=== PATIENT | female | born 1940 | race Caucasian/White ===

== ENCOUNTER → 2020-04-21 13:08 | Outpatient (BNVA) | payer MEDICARE, OTHER, SELFPAY | PROVIDERS: Visit Provider Nurse Practitioner | DX: M25.561 Pain in right knee (principal); E03.9 Hypothyroidism, unspecified; I10 Essential (primary) hypertension; M10.9 Gout, unspecified | CPT/HCPCS: 73562; 80053; 80061; 84443; 84550; 85025; 85651 ==

== ENCOUNTER → 2020-04-28 10:52 | Outpatient (BNVA) | payer MEDICARE, OTHER, SELFPAY | PROVIDERS: Visit Provider Nurse Practitioner | DX: Z12.11 Encounter for screening for malignant neoplasm of colon (principal); Z98.84 Bariatric surgery status | CPT/HCPCS: 82270 ==

== ENCOUNTER → 2020-05-07 14:42 | Outpatient (BNVA) | payer MEDICARE, OTHER, SELFPAY | PROVIDERS: Visit Provider Nurse Practitioner | DX: I10 Essential (primary) hypertension (principal); E55.9 Vitamin D deficiency, unspecified; D64.9 Anemia, unspecified | CPT/HCPCS: 82306; 82607; 83540; 83735 ==

== ENCOUNTER → 2020-08-11 11:07 | Outpatient (BNVA) | payer MEDICARE, OTHER, SELFPAY | PROVIDERS: Visit Provider Nurse Practitioner | DX: E03.9 Hypothyroidism, unspecified (principal); I10 Essential (primary) hypertension; R73.9 Hyperglycemia, unspecified; Z20.828 Contact with and (suspected) exposure to other viral communicable diseases | CPT/HCPCS: 83036; 84443; 87635 ==

== ENCOUNTER → 2020-08-22 08:28 | Outpatient (BNVA) | payer MEDICARE, OTHER, SELFPAY | PROVIDERS: Visit Provider Nurse Practitioner | DX: Z11.59 Encounter for screening for other viral diseases (principal) | CPT/HCPCS: 87635 ==

== ENCOUNTER 2020-09-17 22:18 | Emergency (ER) | payer MEDICARE, OTHER, SELFPAY ==
[2020-09-17 22:23] VITALS: BP 195/95; PULSE 103; RESP 18; TEMP 36.9; O2SAT 100; BMI 25.7
--- NOTE | 2020-09-17 22:41 | W.ED.GENADLT ---
HPI - General Adult General: Chief complaint: General Medical Stated complaint: roof of mouth hurts/ face/ head pain Time Seen by Provider: 09/17/20 22:24 History of Present Illness: HPI narrative: Complain about sinus pain after having a couple Covid swab test done. Says she was treated for sinus problems for about 3 weeks ago and since then she has had 2 Covid swabs done and now she has pain in her left side of her face and roof of her mouth. Denies fever chills nausea or vomiting. MD complaint: Sinus pain Onset (ago): day(s) (2) Location: face Radiation: other (Roof of mouth) Severity: moderate Severity scale (1-10): 4 Quality: aching Pain Consistency: constant Relieving factors: none Exacerbating factors: none Associated symptoms: Reports no associated symptoms; Deny chest pain, dyspnea, headache(s), nausea, rash or vomiting Review of Systems Const: Denies: fever(s), chills or body aches Eyes: Denies: change in vision or blurry vision ENMT: Reports: nasal congestion and other (Sinus pain left side more than right times couple days since she has had Covid swabs done.); Denies: throat pain Card: Denies: chest pain or dyspnea on exertion Resp: Denies: dyspnea, productive cough or non-productive cough GI: Denies: abdominal pain, nausea or vomiting Musc: Denies: extremity pain Skin/Breast: Denies: rash Neuro: Denies: headache(s) Psych: Denies: anxiety or depression Fabian/Lymph: Denies: easy bruising PFSH ED PFSH: Medical History (Updated 09/17/20 @ 22:41 by JULIANNE Diaz) Acquired hypothyroidism Essential hypertension Gout, unspecified Hepatic cirrhosis Migraine Surgical History History of carotid endarterectomy History of carpal tunnel release History of cataract extraction History of gastric bypass Hx of section 3 times Hx of cholecystectomy Family History Other Cancer Diabetes Hypertension Social History Smoking and tobacco status: former smoker Second hand smoke exposure: No Smoking risk assessment/counseling performed?: No Alcohol intake: never Desire information about alcohol rehabilitation?: No Counseling given: No Desire information about substance/drug rehabilitation?: No Counseling given: No Adopted: No Caregiver/support person: No Lives independently: Yes Household members: spouse Housing: House Marital status: Number of children: 3 Current occupational status: retired History of recent travel: No Current gender identity: Female Physical Exam Const: COMMON NORMALS: no acute distress, average body habitus and patient oriented x3 HENMT: COMMON NORMALS: normocephalic HEAD & SCALP: normal to inspection and normocephalic FACE & SINUS: sinus tenderness maxillary (Left side roof of mouth looks okay) Eye: COMMON NORMALS: conjunctivae normal GENERAL EYE: appearance normal, both eyes and all related structures CONJUNCTIVA: Yes conjunctivae normal Neck/C-Spine: COMMON NORMALS: no JVD Chest: COMMONS NORMALS: normal inspection of the chest Resp: COMMON NORMALS: normal respiratory effort and clear to auscultation bilaterally AUSCULTATION: clear to auscultation bilaterally Cardio: COMMON NORMALS: no JVD and regular rhythm RATE: tachycardic RHYTHM: regular rhythm GI: COMMON NORMALS: Normal to inspection, nondistended, normoactive bowel sounds present Extremity: COMMON NORMALS: normal to inspection and full ROM Neuro: COMMON NORMALS: patient oriented x3 Course Vital Signs: Vital signs: Vital Signs Temperature 98.4 F 09/17/20 22:23 Pulse Rate 86 09/17/20 23:09 Respiratory Rate 20 H 09/17/20 23:09 Blood Pressure 195/95 09/17/20 23:09 Pulse Oximetry 98 09/17/20 23:09 Discharge Plan Discharge Patient Disposition: Home Clinical Impression: Sinusitis, acute Qualifiers: Sinusitis location: maxillary Recurrence: non-recurrent Qualified Code(s): J01.00 - Acute maxillary sinusitis, unspecified Condition: Stable Prescriptions: New Bactrim DS 800-160 mg tablet 1 tab PO BID 14 Days Qty: 28 RF: 0 tramadol 50 mg tablet 50 mg PO Q6H PRN (Reason: pain) Qty: 14 RF: 0 No Action aspirin [Adult Low Dose Aspirin] 81 mg tablet,delayed release (DR/EC) 81 mg PO DAILY RF: 0 Prolia 60 mg/mL syringe SUBCUT .6 months RF: 0 grape seed caps PO RF: 0 ascorbate calcium (vitamin C) 1,000 mg PO DAILY RF: 0 isosorbide mononitrate 30 mg tablet extended release 24 hr 30 mg PO DAILY Qty: 30 RF: 2 metoprolol tartrate 50 mg tablet 50 mg PO BID 30 Days Qty: 60 RF: 2 lisinopril 40 mg tablet 40 mg PO DAILY Qty: 30 RF: 2 meloxicam [Mobic] 15 mg tablet 15 mg PO DAILY Qty: 30 RF: 2 azithromycin [Zithromax] 250 mg tablet See Rx Instructions PO .COMPLEX Qty: 6 RF: 0 levothyroxine 125 mcg tablet 125 mcg PO DAILY Qty: 30 RF: 2 nitroglycerin 0.4 mg tablet, sublingual 0.4 mg SUBLINGUAL Q5M PRN (Reason: chest pain) Qty: 25 RF: 0 Discharge Orders: Discharge Order (Routine); Ordered 09/17/20 Ordered By: Jose Means Referrals: [facility] [Primary Care Provider] - Discharge Diet: Usual diet Discharge Activity: Increase activity as tolerated Patient Instructions: Sinusitis (ED) Activity Restrictions/Additional Instructions: Follow-up with medical provider as directed. Take medications as prescribed. Return to the ER or your medical provider if condition worsens. Please read and understand discharge instructions. If any questions ask please. Discharge Date/Time: 09/17/20 23:40 Coding Level of Care Code ED Bone Char Operator for Yadira Fwd Exam Comprehensive
[2020-09-17] MEDS: TRAMadol 50 mg Tablet PO (22:45)
[2020-09-17] MEDS: sulfamethoxazole-trimeth DS 160-800 mg Tablet 1 TAB PO (22:45)
[2020-09-17 23:09] VITALS: BP 195/95; PULSE 86; RESP 20; O2SAT 98
--- NOTE | 2020-09-17 23:37 | PC.NURSE ---
This RN agrees with tick inspector assessment
== END 2020-09-17 23:40 | disposition home or self-care (01) ==
PROVIDERS: Emergency Provider Nurse Practitioner Family
DX: J01.00 Acute maxillary sinusitis, unspecified (principal); Z79.82 Long term (current) use of aspirin; I10 Essential (primary) hypertension; Z87.891 Personal history of nicotine dependence
CPT/HCPCS: 12345; 99281; 99283

== ENCOUNTER → 2020-10-06 15:19 | Outpatient (BNVA) | payer MEDICARE, OTHER, SELFPAY | PROVIDERS: PCP Nurse Practitioner; Visit Provider Nurse Practitioner | DX: E03.9 Hypothyroidism, unspecified (principal); I10 Essential (primary) hypertension; K12.1 Other forms of stomatitis | CPT/HCPCS: 82607; 84443; 85025 ==

== ENCOUNTER → 2021-01-14 11:28 | Outpatient (BNVA) | payer MEDICARE, OTHER, SELFPAY | PROVIDERS: PCP Nurse Practitioner; Visit Provider Nurse Practitioner | DX: E03.9 Hypothyroidism, unspecified (principal) | CPT/HCPCS: 84443 ==

== ENCOUNTER 2021-02-03 09:06 | Outpatient (CLI) | payer MEDICARE, OTHER, SELFPAY ==
--- NOTE | 2021-02-03 09:30 | US_ITS ---
WS: [id number] ABDOMINAL ULTRASOUND LIMITED REASON FOR VISIT: K74.60 - Unspecified cirrhosis of liver TECHNIQUE: Grayscale and Doppler ultrasound examination of the abdomen. FINDINGS: Pancreas: Visualized pancreas is unremarkable. Abdominal aorta and IVC: Normal Liver: Liver measures 15.3 cm in length. The liver has an extremely heterogeneous echotexture predomi nantly moderately hyperechoic. There is a simple cyst in the anterior liver. There is a small, 2 cm x 2 cm, focal hypoechoic region in the liver immediately anterior to the inferior vena cava at the inf erior margin of the liver. This lesion is indeterminate. Gallbladder: Surgically removed. Right kidney: Right kidney measures 8.9 cm x 4.9 cm x 5.0 cm. No mass, hydronephrosis, or calculus is identified. The kidney has a very irregular contour with thinning of the cortex. No free fluid. US/US liver [id number] IMPRESSION: Indeterminate lesion in the liver as described above. The patient's history put s her at risk for development of hepatoma. This would have to be a consideratio n. Most sensitive and accurate examination is an MRI with liver mass protocol. Small abnormal right kidney. Correlate with GFR.
== END 2021-02-03 09:07 | disposition home or self-care (01) ==
LOC: US 09:08
PROVIDERS: PCP Nurse Practitioner; Visit Provider Nurse Practitioner
DX: K74.60 Unspecified cirrhosis of liver (principal); K76.9 Liver disease, unspecified
CPT/HCPCS: 76705

== ENCOUNTER 2021-02-16 15:42 | Outpatient (CLI) | payer MEDICARE, OTHER, SELFPAY ==
--- NOTE | 2021-02-16 16:45 | MR_ITS ---
WS: [id number] MRI ABDOMEN without CONTRAST. COMPARISON: Liver ultrasound 02/03/2021 Multiplanar, multisequence imaging is performed without contrast. Simple cyst in the medial LEFT lobe of the liver measuring 13 x 12 mm. No additional cysts. Surface o f the liver is slightly irregular consistent with a history of cirrhosis. No additional lesions are i dentified on this unenhanced study. Subtle lesions without IV contrast may be obscured. Mild coarsene d signal within the liver. No bile duct dilatation. Portal vein is patent. No portal vein thrombosis. Spleen is not enlarged. Minimal amount of ascites adjacent to the spleen. Pancreas and common bile d uct and pancreatic duct are normal. Adrenal glands normal. Kidneys are low normal size. MR/MR abdomen wo con [id number] IMPRESSION: 1. Simple appearing cyst medial segment LEFT lobe of the liver. 2. No additional masses are identified but study is limited without IV contras t which decreases the sensitivity. 3. Mild cirrhosis. 4. Small amount of ascites adjacent to the spleen.
== END 2021-02-16 15:43 | disposition home or self-care (01) ==
PROVIDERS: PCP Nurse Practitioner; Visit Provider Nurse Practitioner
DX: K76.9 Liver disease, unspecified (principal); R18.8 Other ascites; K74.60 Unspecified cirrhosis of liver; K76.89 Other specified diseases of liver
CPT/HCPCS: 74181

== ENCOUNTER → 2021-02-19 15:12 | Outpatient (BNVA) | payer MEDICARE, OTHER, SELFPAY | PROVIDERS: PCP Nurse Practitioner; Visit Provider Nurse Practitioner | DX: K74.60 Unspecified cirrhosis of liver (principal); E03.9 Hypothyroidism, unspecified; D64.9 Anemia, unspecified; R00.0 Tachycardia, unspecified; I10 Essential (primary) hypertension; K21.9 Gastro-esophageal reflux disease without esophagitis | CPT/HCPCS: 80053; 82306; 84443; 85025 ==

== ENCOUNTER → 2021-02-23 13:59 | Outpatient (BNVA) | payer MEDICARE, OTHER, SELFPAY | PROVIDERS: PCP Nurse Practitioner; Visit Provider Nurse Practitioner | DX: D64.9 Anemia, unspecified (principal) | CPT/HCPCS: 82607; 83550 ==

== ENCOUNTER → 2021-03-31 13:28 | Outpatient (BNVA) | payer MEDICARE, OTHER, SELFPAY | PROVIDERS: PCP Nurse Practitioner; Visit Provider Nurse Practitioner | DX: E03.9 Hypothyroidism, unspecified (principal) | CPT/HCPCS: 84443 ==

== ENCOUNTER 2021-04-22 10:59 | Outpatient (CLI) | payer MEDICARE, OTHER, SELFPAY ==
[2021-04-22 12:44] LABS: Basophils % 0.5 %; Eosinophils # 0.1 10^3/uL (0.0-0.8); Hematocrit 36.9 % (37.0-47.0); Hemoglobin 11.2 g/dL (11.5-15.3); Lymphocytes # 1.5 10^3/uL (0.8-4.8); Lymphocytes % 19.6 %; Mean Corpuscular HGB Conc 30.4 g/dL (30.0-36.0); Mean Corpuscular Hemoglobin 27.7 pg (28.0-34.0); Mean Corpuscular Volume 91.3 fL (81-99); Monocytes # 0.4 10^3/uL (0.2-0.9); Monocytes % 5.1 %; Neutrophils # 5.77 10^3/uL (1.8-7.7); Neutrophils % 73.7 %; Nucleated Red Blood Cells % 0 %; Platelet Count 337 10^3/cmm (130-400); Red Blood Count 4.04 10^6/uL (4.1-5.3); Red Cell Distribution Width 19.6 % (12.1-15.1); White Blood Count 7.8 10^3/uL (4.0-10.0)
[2021-04-22 13:06] LABS: Alanine Aminotransferase 11 U/L (0-33); Albumin Level 4.3 g/dL (3.5-5.2); Alkaline Phosphatase 70 IU/L (35-105); Anion Gap 12.6 (5-19); Aspartate Amino Transferase 19 U/L (0-32); Blood Urea Nitrogen 23 mg/dL (8-23); Calcium 8.7 mg/dL (8.5-10.5); Carbon Dioxide 27 mmol/L (22-29); Chloride 102 mmol/L (98-107); Globulin 3.8 g/dL (1.3-4.6); Glucose 123 mg/dL (65-115); Osmolality Calculated 289 mOsm/kg (285-295); Potassium 4.6 mmol/L (3.5-5.1); Sodium 137 mmol/L (136-145); Total Bilirubin 0.5 mg/dL (0.15-1.2); Total Protein 8.1 g/dL (6.6-8.7)
--- NOTE | 2021-04-22 14:52 | ONC CON_ITS ---
Dr. Julio New Patient Note Patient: Jose M Fairbanks Unit #: [id number]: 1940 Dicatated By: Diamond Julio M.D.Date of Visit: Apr 22, 2021 Onc MED New Patient/Consult Referring Physician: Yosvany Singh History of Present Illness: Ms. Jose M Fairbanks, is a 80-year-old female with history of gastric bypass surgery for weight reduction in 2004, since then patient said she received parenteral iron every 6 months x 3 doses just after the surgery. Never got B12 supplement never received blood transfusion since gastric bypass. As per patient she been told about anemia in the past and couple of times she was offered blood transfusion but someone in her latter-day got infection with HIV after blood transfusion so she decided not to take blood transfusion. Patient denies any history of melena or hematochezia, denies any history of hemoptysis or hematemesis denies any jaundice but she has history of hepatic cirrhosis, as per patient 1 time she was told it was due to hepatitis C but then repeat test for hepatitis C came back negative and then she was told it was due to obesity but after gastric bypass surgery she lost more than 100 pounds, as per patient she was told her liver was also improving. Denies any night sweats denies any peripheral lymphadenopathy denies any recurrent fever denies any recent weight loss. As per patient her lab work-up done in February showed progressive anemia and CBC done on February 19, 2021 shows white blood count 7.1 hemoglobin 8.5 hematocrit 29.4 platelets 316,000 MCV 87.8 iron 24 which is low, iron saturation 5.3%, TIBC 451, B12 275. She was started on oral iron supplement and B12 supplement, which she is tolerating well now Past Medical History: Ms. Fairbanks's medical history consists of gastroesophageal reflux disease, gout, hepatic cirrhosis, hypertension, hypothyroidism, migraine headaches, and tachycardia. Past Surgical History: Ms. Fairbanks's surgical/procedural history consists of caesarean section - x3, carotid endarterectomy, carpal tunnel release, cataract excision, cholecystectomy, and gastric bypass. Medications: Adult Aspirin EC Low Strength (81 mg) Tablet, enteric coated Oral daily, Ascorbic Acid (1000 mg) Tablet Oral daily, Captopril (25 mg) Tablet Oral t.i.d., EQL Iron Supplement Therapy (325 mg) Tablet Oral daily, Prolia (60 mg/mL) Subcutaneous daily Allergies: Dabigatran Etexilate Mesylate, Rivaroxaban, and Warfarin Sodium. Social History: Ms. Fairbanks is . Ms. Fairbanks no longer smokes. Family History: Brother has COPD and father had cancer but she does not know what kind. Review Of Symptoms: Review of Systems is not available for this patient. Vital Signs: Performed on Apr 22, 2021 14:14: 7, 0, 25.64, 1.73 sq.m, 64 in, 97 %, 76 /min, 18 /min, 179/73 mm(hg) (HIGH), 97.6 F (LOW), and 149.4 lbs (HIGH). Performance Status: 0 - Fully active, able to carry on all predisease activities without restrictions. (ECOG) Physical Examination: ENMT - No mouth sores, no thrush, no jaundice, status post right carotid surgery, no cervical or supraclavicular lymphadenopathy, Respiratory - Lungs are clear to auscultation, Cardiovascular - Regular rate and rhythm of heart, Abdomen - Soft, bowel sounds present, Extremities - No visible edema or rash. Lab/Imaging: Most recent lab results are not available for this patient. Impression: Normocytic normochromic anemia probably due to combined iron/B12 deficiency, other possibility could be due to hypothyroidism, considering her age underlying myelodysplasia cannot be ruled out. But lab work-up done on February 19, 2021 showed white blood count 7.1 hemoglobin 8.5 hematocrit 29.4 platelets 316,000, iron 24 normal being 37-1 45, iron saturation 5.3% normal being 20 to 50%, TIBC 451, B12 275 normal being 232-1245 History of gastric bypass surgery in 2004 for weight reduction Iron deficiency anemia status post parenteral iron, around 2009 history of hypothyroidism Osteoporosis Gout Hepatic cirrhosis Essential hypertension Plan: Discussed with patient regarding her labs white blood count 7.8 hemoglobin 11.2 g compared to 8.5 g on February 19, 2021, hematocrit 36.9 platelets 337,000 MCV 91.3 with a normal differential CMP within normal limits Clinically, patient is doing well with no new signs symptoms, tolerating oral iron and B12 supplement well and her repeat CBC done today showed excellent response to oral iron, her hemoglobin has improved to 11.2 g compared to 8.5 g on February 19, 2021 when she was started on oral iron and B12 supplement by her PMD. Patient has no signs symptom related to improving anemia and no evidence of oral iron intolerance., We will continue with her oral iron supplement along with B12 supplement and will repeat her iron studies and B12 level and copper level as patient with gastric bypass surgery sometime experience low copper level which then returned can cause bone marrow suppression which mimic myelodysplasia. She will return to clinic in 1 month with CBC and iron studies and B12 level Signed By: Diamond Julio M.D. <<Signature on File>>
[2021-04-22 16:13] LABS: Ferritin 14 ng/mL (15-150); Iron 254 ug/dL (37-145); Percent Saturation 66.8 % (20-50); Total Iron Binding Capacity 380 mcg/dl; Unsaturated Iron Binding 126 ug/dL (112-347); Vitamin B12 150 pg/mL (232-1245)
[2021-04-22 16:23] LABS: Folate Level 9.9 ng/mL (4.8-37.3)
[2021-04-25 21:07] LABS: Copper Level 115 mcg/dL (70-175)
== END 2021-04-22 11:00 | disposition home or self-care (01) ==
PROVIDERS: PCP Nurse Practitioner; Visit Provider Internal Medicine Hematology & Oncology
DX: D50.9 Iron deficiency anemia, unspecified (principal); D51.9 Vitamin B12 deficiency anemia, unspecified; E03.9 Hypothyroidism, unspecified; M81.0 Age-related osteoporosis without current pathological fracture; M10.9 Gout, unspecified; K76.0 Fatty (change of) liver, not elsewhere classified; I10 Essential (primary) hypertension; Z79.899 Other long term (current) drug therapy
CPT/HCPCS: 36415; 80053; 82525; 82607; 82728; 82746; 83540; 83550; 85025; 99205

== ENCOUNTER → 2021-05-22 08:33 | Outpatient (BNVA) | payer MEDICARE, OTHER, SELFPAY | PROVIDERS: PCP Nurse Practitioner; Visit Provider Internal Medicine Hematology & Oncology | DX: I10 Essential (primary) hypertension (principal); E03.9 Hypothyroidism, unspecified; E55.9 Vitamin D deficiency, unspecified; D50.9 Iron deficiency anemia, unspecified; D64.9 Anemia, unspecified | CPT/HCPCS: 80053; 82306; 82607; 82728; 82746; 83550; 84443; 85025 ==

== ENCOUNTER 2021-05-26 14:41 | Outpatient (CLI) | payer MEDICARE, OTHER, SELFPAY ==
--- NOTE | 2021-05-26 16:44 | ONC FU_ITS ---
Dr. uJlio follow up note Patient: Jose M Fairbanks Unit #: [id number]: 1940 Dicatated By: Diamond Julio M.D.Date of Visit:May 26, 2021 Onc Med Follow-up/Prog Note History of Present Illness: Ms. Jose M Fairbanks, is a 81-year-old female with history of gastric bypass surgery for weight reduction in 2004, since then patient said she received parenteral iron every 6 months x 3 doses just after the surgery. Never got B12 supplement never received blood transfusion since gastric bypass. As per patient she been told about anemia in the past and couple of times she was offered blood transfusion but someone in her religion got infection with HIV after blood transfusion so she decided not to take blood transfusion. Patient denies any history of melena or hematochezia, denies any history of hemoptysis or hematemesis denies any jaundice but she has history of hepatic cirrhosis, as per patient 1 time she was told it was due to hepatitis C but then repeat test for hepatitis C came back negative and then she was told it was due to obesity but after gastric bypass surgery she lost more than 100 pounds, as per patient she was told her liver was also improving. Denies any night sweats denies any peripheral lymphadenopathy denies any recurrent fever denies any recent weight loss. As per patient her lab work-up done in February showed progressive anemia and CBC done on February 19, 2021 shows white blood count 7.1 hemoglobin 8.5 hematocrit 29.4 platelets 316,000 MCV 87.8 iron 24 which is low, iron saturation 5.3%, TIBC 451, B12 275. She was started on oral iron supplement and B12 supplement, which she is tolerating well Came for follow-up, denies any specific complaints, no fever chills, no nausea or vomiting, no diarrhea or constipation, no abdominal bleed, no melena or hematochezia, no hemoptysis or hematemesis, no jaundice, tolerating oral diet/B12 supplement well Medications: Adult Aspirin EC Low Strength (81 mg) Tablet, enteric coated Oral daily, Ascorbic Acid (1000 mg) Tablet Oral daily, B-12 (2000 mcg) Tablet Oral daily, Captopril (25 mg) Tablet Oral t.i.d., EQL Iron Supplement Therapy (325 mg) Tablet Oral daily, Grape Seed (50 mg) Tablet Oral daily, Milk Thistle (175 mg) Tablet Oral daily, Prolia (60 mg/mL) Subcutaneous daily Allergies: Dabigatran Etexilate Mesylate, Rivaroxaban, and Warfarin Sodium. Review of Systems: Review of Systems is not available for this patient. Vital Signs: Performed on May 26, 2021 15:12 Height - 64.00 in Weight - 150.2 lbs (HIGH) BSA - 1.73 sq.m BMI - 25.78 Temperature - 97.6 F (LOW) Pulse - 57 /min (LOW) Respiration - 18 /min BP - 159/61 mm(hg) (HIGH) O2 Sat - 99 % Pain - 6 Fatigue - 8 Performance Status: 0 - Fully active, able to carry on all predisease activities without restrictions. (ECOG) Physical Examination: ENMT - Sinuses are nontender. No oral exudates, ulcers, masses, thrush or mucositis. Oropharynx clear. Tongue normal, Respiratory - Lungs are clear to auscultation, Cardiovascular - Regular rate and rhythm of heart, Abdomen - Soft, bowel sounds present, Extremities - No visible edema or rash. Lab/Imaging: Test performed on May 22, 2021 08:33 Ferritin 27 ng/mL Iron 207 mcg/dL Sodium 137 mmol/L TSH 2.26 uIU/mL Vitamin B12 1840 pg/mL Vitamin D (25-Hydroxy), Total 35 ng/mL Iron Binding Capacity (TIBC) 329 mcg/dL Potassium 5.1 mmol/L % Iron Saturation 62.9 % Chloride 101 mmol/L CO2 26 mmol/L UIBC 122 mcg/dL Anion Gap 15.1 BUN 25 mg/dL Creatinine 1.4 mg/dL Cr Clearance (Est) 35.05 mL/min Glucose 98 mg/dL Osmolality - Calculated 288 mOsm/kg Calcium 8.3 mg/dL Protein, Total 6.7 g/dL Albumin 3.8 g/dL Globulin 2.9 g/dL Bilirubin, Total 0.4 mg/dL ALT (SGPT) 12 Units/L AST (SGOT) 22 Units/L Alkaline Phosphatase 60 IU/L WBC 6.4 10^3/uL RBC 3.9 10^6/uL HGB 11.6 g/dL HCT 35.6 % MCV 92.7 fl MCH 30.2 pg MCHC 32.5 g/dL RDW 20.8 % Platelet Count 283 10^3/uL MPV 7.4 fl Neutrophils 3.9 10^3/uL Lymphocytes 2.1 10^3/uL Monocytes 0.4 10^3/uL Neutrophil % 61.1 % Lymphocyte % 33.4 % Monocyte % 5.5 % Impression: Normocytic normochromic anemia probably due to combined iron/B12 deficiency, other possibility could be due to hypothyroidism, considering her age underlying myelodysplasia cannot be ruled out. But lab work-up done on February 19, 2021 showed white blood count 7.1 hemoglobin 8.5 hematocrit 29.4 platelets 316,000, iron 24 normal being 37-1 45, iron saturation 5.3% normal being 20 to 50%, TIBC 451, B12 275 normal being [id number] History of gastric bypass surgery in 2004 for weight reduction Iron deficiency anemia status post parenteral iron, around 2009 history of hypothyroidism Osteoporosis Gout Hepatic cirrhosis Essential hypertension Plan: Discussed with patient regarding her labs white blood count 6.4 hemoglobin 11.6 g, hematocrit 35.6 platelets 283,000 CMP within normal limit except creatinine 1.4 folate 10.5 iron 207, saturation 62.9% ferritin 27 B12 1840 Clinically, patient doing well, tolerating oral iron/B12 supplement well her follow-up lab work-up shows improvement in her iron stores and resolution of anemia, will continue with same and she will return to clinic in 2 months with iron studies and CBC Signed By: Diamond Julio M.D. <<Signature on File>>
== END 2021-05-26 14:42 | disposition home or self-care (01) ==
LOC: ONCMED 14:49
PROVIDERS: PCP Nurse Practitioner; Visit Provider Internal Medicine Hematology & Oncology
DX: D50.9 Iron deficiency anemia, unspecified (principal); D51.9 Vitamin B12 deficiency anemia, unspecified; E03.9 Hypothyroidism, unspecified; M81.0 Age-related osteoporosis without current pathological fracture; M10.9 Gout, unspecified; K74.60 Unspecified cirrhosis of liver; I10 Essential (primary) hypertension; Z79.899 Other long term (current) drug therapy
CPT/HCPCS: G0463

== ENCOUNTER → 2021-07-06 15:00 | Outpatient (BNVA) | payer MEDICARE, OTHER, SELFPAY | PROVIDERS: PCP Nurse Practitioner; Visit Provider Nurse Practitioner | DX: D50.9 Iron deficiency anemia, unspecified (principal); E03.9 Hypothyroidism, unspecified; I10 Essential (primary) hypertension; R73.9 Hyperglycemia, unspecified; Z98.890 Other specified postprocedural states; R00.0 Tachycardia, unspecified | CPT/HCPCS: 80053; 80061; 82607; 83036; 83540; 84443 ==

== ENCOUNTER 2021-08-05 12:28 | Outpatient (CLI) | payer MEDICARE, OTHER, SELFPAY ==
[2021-08-05 13:45] LABS: Basophils % 0.5 %; Eosinophils # 0.1 10^3/uL (0.0-0.8); Eosinophils % 1.7 %; Hematocrit 36.6 % (37.0-47.0); Hemoglobin 11.7 g/dL (11.5-15.3); Lymphocytes # 1.7 10^3/uL (0.8-4.8); Mean Corpuscular Volume 96.8 fl (81-99); Mean Platelet Volume 10.5 fL (7.4-10.4); Monocytes # 0.4 10^3/uL (0.2-0.9); Monocytes % 5.9 %; Neutrophils # 4.17 10^3/uL (1.8-7.7); Neutrophils % 64.6 %; Nucleated Red Blood Cells % 0 %; Platelet Count 271 10^3/cmm (130-400); Red Blood Count 3.78 10^6/uL (4.1-5.3); White Blood Count 6.5 10^3/uL (4.0-10.0)
[2021-08-05 14:19] LABS: Ferritin 24 ng/mL (15-150); Iron 116 ug/dL (37-145); Total Iron Binding Capacity 313 mcg/dl; Unsaturated Iron Binding 197 ug/dL (112-347)
--- NOTE | 2021-08-06 08:19 | ONC FU_ITS ---
Dr. Julio follow up note Patient: Jose M Fairbanks Unit #: [id number]: 1940 Dicatated By: Diamond Julio M.D.Date of Visit:Aug 05, 2021 Onc Med Follow-up/Prog Note History of Present Illness: Ms. Jose M Fairbanks, is a 81-year-old female with history of gastric bypass surgery for weight reduction in 2004, since then patient said she received parenteral iron every 6 months x 3 doses just after the surgery. Never got B12 supplement never received blood transfusion since gastric bypass. As per patient she been told about anemia in the past and couple of times she was offered blood transfusion but someone in her gnosticist got infection with HIV after blood transfusion so she decided not to take blood transfusion. Patient denies any history of melena or hematochezia, denies any history of hemoptysis or hematemesis denies any jaundice but she has history of hepatic cirrhosis, as per patient 1 time she was told it was due to hepatitis C but then repeat test for hepatitis C came back negative and then she was told it was due to obesity but after gastric bypass surgery she lost more than 100 pounds, as per patient she was told her liver was also improving. Denies any night sweats denies any peripheral lymphadenopathy denies any recurrent fever denies any recent weight loss. As per patient her lab work-up done in February showed progressive anemia and CBC done on February 19, 2021 shows white blood count 7.1 hemoglobin 8.5 hematocrit 29.4 platelets 316,000 MCV 87.8 iron 24 which is low, iron saturation 5.3%, TIBC 451, B12 275. She was started on oral iron supplement and B12 supplement, which she is tolerating well Came for follow-up, denies any specific complaints, no fever chills, no nausea or vomiting, no diarrhea or constipation, no melena or hematochezia, as per patient her PMD reduce her daily oral iron supplement to 2 tablets a week as her iron studies done in her PMDs office shows increased iron stores. Patient denies any shortness of breath or palpitation, denies any jaundice, denies any abdominal pain, tolerating oral iron well Medications: Adult Aspirin EC Low Strength (81 mg) Tablet, enteric coated Oral daily, Ascorbic Acid (1000 mg) Tablet Oral daily, B-12 (2000 mcg) Tablet Oral daily, Captopril (50 mg) Tablet Oral t.i.d., EQL Iron Supplement Therapy (325 mg) Tablet Oral daily, Grape Seed (50 mg) Tablet Oral daily, Milk Thistle (175 mg) Tablet Oral daily, Prolia (60 mg/mL) Subcutaneous daily Allergies: Dabigatran Etexilate Mesylate, Rivaroxaban, and Warfarin Sodium. Review of Systems: Review of Systems is not available for this patient. Vital Signs: Performed on Aug 05, 2021 15:07 Height - 64.00 in Weight - 152.2 lbs (HIGH) BSA - 1.74 sq.m BMI - 26.13 Temperature - 96.4 F (LOW) Pulse - 68 /min Respiration - 18 /min BP - 167/71 mm(hg) (HIGH) O2 Sat - 98 % Pain - 0 Fatigue - 7 Performance Status: 0 - Fully active, able to carry on all predisease activities without restrictions. (ECOG) Physical Examination: ENMT - No mouth sores, no thrush, no jaundice, Respiratory - Lungs are clear to auscultation, Cardiovascular - Regular rate and rhythm of heart, Abdomen - Soft, bowel sounds present, Extremities - No visible edema. Lab/Imaging: Test performed on May 22, 2021 08:33 Ferritin 27 ng/mL Iron 207 mcg/dL Sodium 137 mmol/L TSH 2.26 uIU/mL Vitamin B12 1840 pg/mL Vitamin D (25-Hydroxy), Total 35 ng/mL Iron Binding Capacity (TIBC) 329 mcg/dL Potassium 5.1 mmol/L % Iron Saturation 62.9 % Chloride 101 mmol/L CO2 26 mmol/L UIBC 122 mcg/dL Anion Gap 15.1 BUN 25 mg/dL Creatinine 1.4 mg/dL Cr Clearance (Est) 35.05 mL/min Glucose 98 mg/dL Osmolality - Calculated 288 mOsm/kg Calcium 8.3 mg/dL Protein, Total 6.7 g/dL Albumin 3.8 g/dL Globulin 2.9 g/dL Bilirubin, Total 0.4 mg/dL ALT (SGPT) 12 Units/L AST (SGOT) 22 Units/L Alkaline Phosphatase 60 IU/L WBC 6.4 10^3/uL RBC 3.9 10^6/uL HGB 11.6 g/dL HCT 35.6 % MCV 92.7 fl MCH 30.2 pg MCHC 32.5 g/dL RDW 20.8 % Platelet Count 283 10^3/uL MPV 7.4 fl Neutrophils 3.9 10^3/uL Lymphocytes 2.1 10^3/uL Monocytes 0.4 10^3/uL Neutrophil % 61.1 % Lymphocyte % 33.4 % Monocyte % 5.5 % Impression: Normocytic normochromic anemia probably due to combined iron/B12 deficiency, other possibility could be due to hypothyroidism, considering her age underlying myelodysplasia cannot be ruled out. But lab work-up done on February 19, 2021 showed white blood count 7.1 hemoglobin 8.5 hematocrit 29.4 platelets 316,000, iron 24 normal being 37-1 45, iron saturation 5.3% normal being 20 to 50%, TIBC 451, B12 275 normal being [id number] History of gastric bypass surgery in 2004 for weight reduction Iron deficiency anemia status post parenteral iron, around 2009 history of hypothyroidism Osteoporosis Gout Hepatic cirrhosis Essential hypertension Plan: Discussed with patient regarding her labs white blood count 6.5 hemoglobin 11.7 g medical 36.6 platelets 271,000 iron studies shows iron saturation 37 compared to 62.9 on May 22, 2021 ferritin 24 compared to 27 previously iron 116 TIBC 313 Clinically, patient doing well with no new signs symptom suggestive of gross bleeding, her follow-up labs shows hemoglobin normal range and stabilize, iron stores again in normal range but some drop compared to previous values. As per patient, her PMD reduced her oral iron supplement from daily to twice a week, at this point, patient was advised to take oral iron every other day and to return to clinic in 3 months with CBC and iron studies Signed By: Diamond Julio M.D. <<Signature on File>>
[2021-08-13 19:07] LABS: Copper Level 105 mcg/dL (70-175)
== END 2021-08-05 12:29 | disposition home or self-care (01) ==
LOC: ONCMED 12:33
PROVIDERS: PCP Nurse Practitioner; Visit Provider Internal Medicine Hematology & Oncology
DX: D50.9 Iron deficiency anemia, unspecified (principal); E03.9 Hypothyroidism, unspecified; I10 Essential (primary) hypertension; Z98.84 Bariatric surgery status; Z79.82 Long term (current) use of aspirin; Z79.899 Other long term (current) drug therapy
CPT/HCPCS: 36415; 82525; 82728; 83540; 83550; 85025; 99214

== ENCOUNTER 2021-08-27 12:35 | Outpatient (CLI) | payer MEDICARE, OTHER, SELFPAY ==
--- NOTE | 2021-08-27 12:45 | USCV_ITS ---
Jose M Fairbanks Age: 81 Gender: F : 1940 Exam Date: 08/27/2021 12:54 Ordering Phys: Martha German Technologist: Estelita Carmichael Exam Location: [facility] [place] Indication: SYNCOPE AND COLLAPSE CAROTID STENOSIS Risk Factors: Previous Vascular Surgery: R CEA Right Brachial BP: / Left Brachial BP: / Right Left Velocity (cm/s) Spectral Plaque Velocity (cm/s) Spectral Plaque Syst/Diast Broadening Syst/Diast Broadening 57.70/ 7.10 Prox CCA 71.00 / 9.90 50.70/ 8.60 Mid CCA 59.80 / 12.00 73.80/ 12.00 Distal CCA 58.10 / 13.80 82.90/ 15.20 Prox ICA 44.70 / 8.50 81.50/ 20.20 Mid ICA 94.80 / 25.40 80.60/ 18.30 Distal ICA 83.30 / 18.80 82.20 ECA 56.70 1.64 ICA/CCA 1.59 Antegrade Vertebral Antegrade 59.50/ 10.10 cm/s 40.40/ 6.30 cm/s Bi Subclavian Bi 107.0 86.90 0 CONCLUSIONS Right ICA stenosis <50%. Moderate atheromatous plaque right carotid bulb/ICA. Left ICA stenosis <50%. Moderate atheromatous plaque left carotid bulb/ICA. Normal antegrade Doppler flow noted in the right vertebral artery. Normal antegrade Doppler flow noted in the left vertebral artery. Azael Leonard MD (Electronically Signed) Final Date: 27 August 2021 16:36 S
== END 2021-08-27 12:36 | disposition home or self-care (01) ==
LOC: RAD 12:39
PROVIDERS: PCP Nurse Practitioner; Visit Provider Nurse Practitioner
DX: R55 Syncope and collapse (principal); I65.23 Occlusion and stenosis of bilateral carotid arteries
CPT/HCPCS: 93880

== ENCOUNTER → 2021-10-27 11:56 | Outpatient (BNVA) | payer MEDICARE, OTHER, SELFPAY | PROVIDERS: PCP Nurse Practitioner; Visit Provider Nurse Practitioner | DX: E03.9 Hypothyroidism, unspecified (principal); I10 Essential (primary) hypertension | CPT/HCPCS: 80053; 80061; 84443; 85025; 85651; 86038; 86140 ==

== ENCOUNTER 2021-11-02 01:32 | Emergency (ER) | payer MEDICARE, OTHER, SELFPAY ==
[2021-11-02 01:33] VITALS: BP 142/78; PULSE 74; RESP 16; TEMP 36.2; O2SAT 98; BMI 25.2
--- NOTE | 2021-11-02 01:38 | XRR_ITS ---
PROCEDURE INFORMATION: Exam: XR Right Hip Exam date and time: 11/02/2021 1:38 AM Age: 81 years old Clinical indication: Hip pain; Right hip; Additional info: R hip pain TECHNIQUE: Imaging protocol: XR Right hip. Views: 2 or 3 views hip with pelvis when performed. COMPARISON: MR abdomen wo con [id number] 02/16/2021 4:10 PM FINDINGS: Bones/joints: Mild bone spurring, sclerosis and joint space narrowing is seen within the right hip compatible with osteoarthritis. Soft tissues: Unremarkable. XR/XR hip RT 2-3V wo/w pel* [id number] IMPRESSION: Osteoarthritis of the right hip
[2021-11-02 02:26] VITALS: BP 149/67; PULSE 65; RESP 18; O2SAT 100
--- NOTE | 2021-11-02 03:25 | ED_ITS ---
HPI - Extremity Problem General: Chief complaint: Extremity Problem,Nontraumatic Stated complaint: R HIP PAIN Time Seen by Provider: 11/02/21 01:40 History of Present Illness: HPI Narrative: 81-year-old female who bent over at home, heard a pop, and felt pain from her right sacroiliac area down her thigh and into her posterior calf. She had trouble walking following this. She had a mild numbness feeling in her right calf. No overt weakness. No loss of s ensation in the groin area. No loss of bowel or bladder control. She has not had pain like this before. MD Complaint: extremity pain Onset (ago): hour(s) Pain Consistency: constant Location: right, lower extremity and other Quality: aching Radiation: distal Relieving factors: nothing Exacerbating factors: weight bearing and walking Associated symptoms: Deny chest pain, fever(s), myalgias, rash or short of breath Review of Systems Const: Denies: fever(s) Card: Denies: chest pain or palpitations Resp: Denies: dyspnea, productive cough or non-productive cough GI: Denies: abdominal pain, nausea, vomiting or change in bowel habits Skin/Breast: Denies: rash Neuro: Reports: sensory changes (Mild paresthesia to the right calf, mainly lateral); Denies: headache(s) or weakness in extremities PFSH ED PFSH: Medical History Acquired hypothyroidism Essential hypertension Gastric reflux Gout, unspecified Hepatic cirrhosis Migraine Oral ulceration Tachycardia Surgical History History of carotid endarterectomy History of carpal tunnel release History of cataract extraction History of gastric bypass Hx of section 3 times Hx of cholecystectomy Family History Other Cancer Diabetes Hypertension Social History Second hand smoke exposure: No Smoking risk assessment/counseling performed?: No Alcohol intake: never Desire information about alcohol rehabilitation?: No Counseling given: No Desire information about substance/drug rehabilitation?: No Counseling given: No Adopted: No Caregiver/support person: No Lives independently: Yes Household members: spouse Housing: House Marital status: Number of children: 3 service: No Current occupational status: retired History of recent travel: No Current gender identity: Female Physical Exam Const: COMMON NORMALS: no acute distress, patient oriented x3 and alert GENERAL APPEARANCE: cooperative; not ill appearing Chest: COMMONS NORMALS: normal inspection of the chest Resp: COMMON NORMALS: normal respiratory effort, No use of accessory muscles and clear to auscultation bilaterally AUSCULTATION: clear to auscultation bilaterally Cardio: COMMON NORMALS: regular rate and regular rhythm RATE: regular rate RHYTHM: regular rhythm GI: COMMON NORMALS: Normal to inspection, nondistended, normoactive bowel sounds present, Soft to palpation and non-tender PALPATION: Yes Soft to palpation : BLADDER/KIDNEY EXAM: No CVA tenderness Back/Pelvis: GENERAL BACK: No CVA tenderness LUMBAR SPINE/LOWER BACK: No lumbar spinal tenderness PELVIS: No tenderness over symphysis pubis SACROILIAC JOINTS: Yes SI joint(s) abnormal SI joint details: tender to palpation (on right) Neuro: COMMON NORMALS: patient oriented x3 SENSORIUM/ORIENTATION: Yes alert Course Vital Signs: Vital signs: Vital Signs Temperature 97.2 F L 11/02/21 01:33 Pulse Rate 65 11/02/21 02:26 Respiratory Rate 18 11/02/21 02:26 Blood Pressure 149/67 11/02/21 02:26 Pulse Oximetry 100 11/02/21 02:26 MDM - Extremity (Nontraumatic) MDM Narrative: Medical decision making narrative: Pain in the sciatic distribution. She has no lumbar tenderness. She has minimal hip joint tenderness. Her range of motion is not significantly reduced to the hip. This is likely an SI joint sprain although lumbar radiculopathy cannot be completely ruled out. She has no red flag symptoms. Will treat symptomatically. Discharge Plan Discharge Patient Disposition: Home Clinical Impression: Sciatic neuritis Qualifiers: Laterality: right Qualified Code(s): M54.31 - Sciatica, right side Sacroiliac (ligament) sprain Qualifiers: Encounter type: initial encounter Qualified Code(s): S33.6XXA - Sprain of sacroiliac joint, initial encounter Condition: Stable Prescriptions: New hydrocodone-acetaminophen 5-325 mg tablet 1 tab PO Q8H PRN (Reason: pain) Qty: 7 RF: 0 Medrol (Jay) 4 mg tablets,dose pack See Rx Instructions .ROUTE .COMPLEX Qty: 21 RF: 0 No Action aspirin [Adult Low Dose Aspirin] 81 mg tablet,delayed release (DR/EC) 81 mg PO DAILY RF: 0 Prolia 60 mg/mL syringe SUBCUT .6 months RF: 0 grape seed caps PO RF: 0 ascorbate calcium (vitamin C) 1,000 mg PO DAILY RF: 0 levothyroxine 125 mcg tablet See Rx Instructions PO .COMPLEX Qty: 30 RF: 2 metoprolol tartrate 100 mg tablet 100 mg PO BID 30 Days Qty: 60 RF: 2 captopril 50 mg tablet 50 mg PO TID 30 Days Qty: 90 RF: 2 nitroglycerin 0.4 mg tablet, sublingual 0.4 mg SUBLINGUAL Q5M PRN (Reason: chest pain) Qty: 25 RF: 0 Discharge Orders: Discharge ED (Routine); Ordered 11/02/21 Ordered By: Russ Metzger Referrals: Martha German, MOBILITY MANAGER-C [Primary Care Provider] - Discharge Diet: Advance as tolerated Discharge Activity: Increase activity as tolerated Patient Instructions: Sciatica (ED), Opioid Safety Activity Restrictions/Additional Instructions: Return for loss of control of your bowel or bladder that is new, significant numbness to the groin or genital area, progressive weakness to the lower extremities, uncontrolled pain, other concerning symptoms. Coding Level of Care Code ED Car Shagger for Yadira Fwd Exam Detailed
[2021-11-02 03:48] VITALS: BP 144/46; PULSE 65; RESP 18; O2SAT 98
== END 2021-11-02 03:50 | disposition home or self-care (01) ==
PROVIDERS: Emergency Provider Emergency Medicine; PCP Nurse Practitioner
DX: M54.31 Sciatica, right side (principal); S33.6XXA Sprain of sacroiliac joint, initial encounter; Z79.82 Long term (current) use of aspirin; I10 Essential (primary) hypertension; X50.1XXA Overexertion from prolonged static or awkward postures, initial encounter
CPT/HCPCS: 73502; 99282

== ENCOUNTER → 2022-01-22 11:08 | Outpatient (BNVA) | payer MEDICARE, OTHER, SELFPAY | PROVIDERS: PCP Nurse Practitioner; Visit Provider Nurse Practitioner | DX: L01.00 Impetigo, unspecified (principal); E03.9 Hypothyroidism, unspecified; I10 Essential (primary) hypertension; R00.0 Tachycardia, unspecified | CPT/HCPCS: 80048; 84443 ==

== ENCOUNTER 2022-04-13 09:27 | Outpatient (CLI) | payer MEDICARE, OTHER, SELFPAY ==
--- NOTE | 2022-04-13 12:45 | US_ITS ---
WS: [id number] RIGHT UPPER QUADRANT ULTRASOUND HISTORY: K74.60 - Unspecified cirrhosis of liver COMPARISON: MRI 02/16/2021 and ultrasound 02/03/2021 Liver: 14.4 cm in length. Small liver with cirrhotic margin. Cyst along the inferior surface LEFT lob e measures 1.4 x 1.4 x 1.2 cm. No additional mass or abnormality is identified. Portal Vein: Normal hepatopetal flow with monophasic waveform. Gallbladder: Prior cholecystectomy. CBD: 0.4 cm Pancreas: Normal size and echogenicity. Right kidney: 8.2 cm in length. Atrophied kidney which is very echogenic. No hydronephrosis or mass. Aorta and IVC: Unremarkable abdominal aorta and IVC. No ascites. US/US liver [id number] IMPRESSION: 1. Cirrhotic liver with simple cyst, maximum diameter 1.4 cm. 2. No additional liver mass identified. 3. Prior cholecystectomy. 4. Atrophic RIGHT kidney.
== END 2022-04-13 09:28 | disposition home or self-care (01) ==
LOC: RAD 09:28
PROVIDERS: PCP Nurse Practitioner; Visit Provider Nurse Practitioner
DX: K74.60 Unspecified cirrhosis of liver (principal); K76.89 Other specified diseases of liver; Z90.49 Acquired absence of other specified parts of digestive tract; N26.1 Atrophy of kidney (terminal)
CPT/HCPCS: 76705

== ENCOUNTER 2022-04-20 02:49 | Inpatient (IN) | payer MEDICARE, OTHER, SELFPAY ==
[2022-04-20] VITALS (13 sets, daily range): BP systolic 128–160; BP diastolic 50–87; PULSE 19–75; RESP 16–26; TEMP 36.3–36.8; O2SAT 89–99; BMI 27.4; BMI 26.6
--- NOTE | 2022-04-20 02:53 | ECG_ITS ---
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 Measurements Intervals [place] Rate: 73 P: -38 CO: 343 QRS: -27 QRSD: 99 T: 63 QT: 413 QTc: 456 Interpretive Statements SINUS RHYTHM WITH FIRST DEGREE AV BLOCK BORDERLINE LEFT AXIS DEVIATION [QRS AXIS < -20] No previous ECG available for comparison Electronically Signed On 04-20-2022 18:30:33 CDT by Regis Rodas M.D. [id number]
--- NOTE | 2022-04-20 02:53 | XRR_ITS ---
PROCEDURE INFORMATION: Exam: XR Chest Exam date and time: 04/20/2022 3:16 AM Age: 82 years old Clinical indication: Other: Syncope TECHNIQUE: Imaging protocol: XR of the chest. Views: 1 view. COMPARISON: MR abdomen wo con [id number] 02/16/2021 4:10 PM FINDINGS: Lungs: No significant or acute findings. No consolidation. Pleural spaces: No costophrenic angle blunting. No pneumothorax. Heart/Mediastinum: Heart size is normal. Bones/joints: No acute osseous abnormality. XR/XR chest 1V portable [id number] IMPRESSION: No acute abnormality demonstrated.
--- NOTE | 2022-04-20 02:56 | W.ED.SYNCOPE ---
HPI - Syncope General: Chief Complaint: Syncope Stated Complaint: syncopal episode Time Seen by Provider: 04/20/22 02:50 Source: patient and EMS Mode of arrival: EMS Limitations: no limitations History of Present Illness: [id number] female states that she not felt well for couple days states she has had diarrhea as well today. She got up and overnight she was not feeling well and had a syncopal event. Per EMS they state that she had another syncopal event and her called EMS stating they arrived she was having some slight hypotension they have given IV fluids her blood pressure is improved she denies any chest pain or headache she is did pass out states she has some neck pain but she states it is chronic in nature. Associated symptoms: Deny fever(s) or headache(s) Review of Systems Const: Denies: fever(s), chills, body aches or change in appetite Eyes: Denies: blurry vision or eye discomfort ENMT: Denies: throat pain or dental pain Card: Reports: syncope Resp: Denies: dyspnea GI: Reports: diarrhea : Denies: dysuria Musc: Denies: neck pain or back pain Skin/Breast: Denies: rash Neuro: Denies: headache(s) Psych: Denies: depression Fabian/Lymph: Denies: easy bruising All/Imm: Denies: urticaria PFSH ED PFSH: Medical History Acquired hypothyroidism Essential hypertension Gastric reflux Gout, unspecified Hepatic cirrhosis Migraine Oral ulceration Post-menopausal osteoporosis Tachycardia Surgical History History of carotid endarterectomy History of carpal tunnel release History of cataract extraction History of gastric bypass Hx of section 3 times Hx of cholecystectomy Family History Other Cancer Diabetes Hypertension Social History Smoking and tobacco status: former smoker Second hand smoke exposure: No Smoking risk assessment/counseling performed?: No Alcohol intake: never Desire information about alcohol rehabilitation?: No Counseling given: No Desire information about substance/drug rehabilitation?: No Counseling given: No Adopted: No Caregiver/support person: No Lives independently: Yes Household members: spouse Housing: House Marital status: Number of children: 3 service: No Current occupational status: retired History of recent travel: No Current gender identity: Female Physical Exam Const: COMMON NORMALS: patient oriented x3 HENMT: COMMON NORMALS: normocephalic and atraumatic HEAD & SCALP: normocephalic and atraumatic Eye: COMMON NORMALS: Equal, round and reactive pupils present and EOMs intact bilaterally PUPIL: Yes Equal, round and reactive pupils present Neck/C-Spine: COMMON NORMALS: full ROM and supple Chest: COMMONS NORMALS: normal inspection of the chest and normal palpation of entire chest wall Resp: COMMON NORMALS: normal respiratory effort, No retractions, No use of accessory muscles and clear to auscultation bilaterally AUSCULTATION: clear to auscultation bilaterally Cardio: COMMON NORMALS: regular rate, regular rhythm and No murmurs present (Cardio) RATE: regular rate RHYTHM: regular rhythm GI: COMMON NORMALS: Normal to inspection, nondistended, normoactive bowel sounds present, Soft to palpation, non-tender and no masses PALPATION: Yes Soft to palpation Extremity: COMMON NORMALS: normal to inspection and full ROM Neuro: COMMON NORMALS: patient oriented x3, moves all extremities and no focal motor deficits Psych: COMMON NORMALS: mental status grossly normal, Normal thought process present and cooperative THOUGHT PROCESS: Normal thought process present Skin: COMMON NORMALS: no rashes or lesions noted and no wounds GENERAL SKIN EXAM: no rashes or lesions noted Course Vital Signs: Vital signs: Vital Signs Temperature 97.4 F L 04/20/22 03:00 Pulse Rate 73 04/20/22 03:00 Respiratory Rate 18 04/20/22 03:00 Blood Pressure 158/61 04/20/22 03:00 Pulse Oximetry 98 04/20/22 03:00 MDM - Syncope Medical Decision Making Patient presents here with syncopal event she was hypotensive with EMS she has had normotension here patient's blood work here head CT chest x-ray are all normal we will admit for observation due to her syncopal events spoke to hospitalist who will admit. Lab Data : 04/20/22 03:00 04/20/22 03:00 Radiology Impressions Chest X-Ray 04/20/22 02:53 IMPRESSION: No acute abnormality demonstrated. Cervical Spine CT 04/20/22 02:59 IMPRESSION: 1. No definite acute fracture or post traumatic subluxation by CT. 2. Degenerative/arthritic changes as above. 3. Other findings discussed above. Head CT 04/20/22 03:06 IMPRESSION: 1. No acute intracranial hemorrhage or mass effect. 2. No definite acute infarct by CT, see above. 3. Other findings discussed above. Laboratory Results WBC 8.9 10^3/uL (4.0-10.0) 04/20/22 03:00 RBC 3.29 10^6/uL (4.1-5.3) L 04/20/22 03:00 Hgb 9.7 g/dL (11.5-15.3) L 04/20/22 03:00 Hct 30.5 % (37.0-47.0) L 04/20/22 03:00 MCV 92.7 fl (81-99) 04/20/22 03:00 MCH 29.5 pg (28.0-34.0) 04/20/22 03:00 MCHC 31.8 g/dL (30.0-36.0) 04/20/22 03:00 RDW 13.5 % (12.1-15.1) 04/20/22 03:00 Plt Count 273 10^3/cmm (130-400) 04/20/22 03:00 MPV 9.8 fL (7.4-10.4) 04/20/22 03:00 Neut % (Auto) 80.7 % 04/20/22 03:00 Lymph % (Auto) 10.5 % 04/20/22 03:00 [place] % (Auto) 7.7 % 04/20/22 03:00 Eos % (Auto) 0.8 % 04/20/22 03:00 Baso % (Auto) 0.2 % 04/20/22 03:00 Neut # (Auto) 7.15 10^3/uL (1.8-7.7) 04/20/22 03:00 Lymph # (Auto) 0.9 10^3/uL (0.8-4.8) 04/20/22 03:00 [place] # (Auto) 0.7 10^3/uL (0.2-0.9) 04/20/22 03:00 Eos # (Auto) 0.1 10^3/uL (0.0-0.8) 04/20/22 03:00 Baso # (Auto) 0.0 10^3/uL (0.0-0.1) 04/20/22 03:00 Nucleated RBC % (auto) 0 % 04/20/22 03:00 Nucleated RBCs # 0.0 /100WBC 04/20/22 03:00 Sodium 140 mmol/L (136-145) 04/20/22 03:00 Potassium 4.0 mmol/L (3.5-5.1) 04/20/22 03:00 Chloride 107 mmol/L (98-107) 04/20/22 03:00 Carbon Dioxide 21 mmol/L (22-29) L 04/20/22 03:00 Anion Gap 16.0 (5-19) 04/20/22 03:00 BUN 24 mg/dL (8-23) H 04/20/22 03:00 Creatinine 1.3 mg/dL (0.5-0.9) H 04/20/22 03:00 GFR Calculation Not Reportable 04/20/22 03:00 Glucose 148 mg/dL (65-115) H 04/20/22 03:00 Calculated Osmolality 297 mOsm/kg (285-295) H 04/20/22 03:00 Calcium 8.6 mg/dL (8.5-10.5) 04/20/22 03:00 Total Bilirubin 0.4 mg/dL (0.15-1.2) 04/20/22 03:00 AST 22 U/L (0-32) 04/20/22 03:00 ALT 12 U/L (0-33) 04/20/22 03:00 Alkaline Phosphatase 137 IU/L (35-105) H 04/20/22 03:00 Troponin T Baseline 12 ng/L (0-10) H 04/20/22 03:00 Total Protein 6.6 g/dL (6.6-8.7) 04/20/22 03:00 Albumin 3.7 g/dL (3.5-5.2) 04/20/22 03:00 Globulin 2.9 g/dL (1.3-4.6) 04/20/22 03:00 EKG Data EKG 1: I personally reviewed and interpreted this EKG as follows: EKG interpretation date: 04/20/22 EKG interpretation time: 02:56 Interpretation: nsr hr [address] or t wave abnormalities qrs 99 qtc 438 Discharge Plan Discharge Patient Disposition: Admitted As Inpatient Clinical Impression: Diarrhea Syncopal episodes Qualifiers: Syncope type: unspecified Qualified Code(s): R55 - Syncope and collapse Condition: Stable Coding Level of Care Code ED Laboratory Supervisor for Chg Fwd Exam Comprehensive
--- NOTE | 2022-04-20 02:59 | CTR_ITS ---
PROCEDURE INFORMATION: Exam: CT Cervical Spine Without Contrast Exam date and time: 04/20/2022 3:28 AM Age: 82 years old Clinical indication: Injury or trauma; Fall; Blunt trauma; Prior surgery; Surgery date: 6+ months; Surgery type: Cspine TECHNIQUE: Imaging protocol: Computed tomography images of the cervical spine without contrast. Radiation optimization: All CT scans at this facility use at least one of these dose optimization techniques: automated exposure control; mA and/or kV adjustment per patient size (includes targeted exams where dose is matched to clinical indication); or iterative reconstruction. COMPARISON: No relevant prior studies available. RADIATION DOSE METRICS: Total DLP (mGy-cm): 664.41 FINDINGS: Bones/joints: On axial CT images, no definite acute fracture is visible. Sagittal and coronal reconstructions show no acute fracture or post traumatic subluxation. Moderate to severe degenerative disc changes and facet joint arthritis at several levels. Very mild 1 mm of anterior subluxation of C6 relative to C7. No visible fracture. Prominent facet joint arthritis at this level is the likely etiology. Discs/Spinal canal/Neural foramina: Moderate posterior disc margin spurring at C4-C5, causes moderate spinal canal narrowing, greater on the right. Moderate bulging disc suspected at C5-C6. MRI could be more specific/sensitive if clinically indicated. Mastoid air cells: Small amount of fluid in inferior left mastoid air cells. This could represent chronic or acute mastoiditis. No visible fracture in this region. Lungs: No significant acute finding in the upper lungs. CT/CT cervical spin wo con* [id number] IMPRESSION: 1. No definite acute fracture or post traumatic subluxation by CT. 2. Degenerative/arthritic changes as above. 3. Other findings discussed above.
--- NOTE | 2022-04-20 03:06 | CTR_ITS ---
PROCEDURE INFORMATION: Exam: CT Head Without Contrast Exam date and time: 04/20/2022 3:25 AM Age: 82 years old Clinical indication: Syncope and collapse; Additional info: Fall TECHNIQUE: Imaging protocol: Computed tomography of the head without contrast. Radiation optimization: All CT scans at this facility use at least one of these dose optimization techniques: automated exposure control; mA and/or kV adjustment per patient size (includes targeted exams where dose is matched to clinical indication); or iterative reconstruction. COMPARISON: No relevant prior studies available. RADIATION DOSE METRICS: Total DLP (mGy-cm): 924.31 FINDINGS: Brain: No acute intracranial hemorrhage or mass effect. There is mild decreased attenuation in the periventricular white matter, likely from microvascular disease. Small low attenuation area along the inferior margin of the left basal ganglia may be a prominent perivascular space, possibly an old lacunar infarct. No definite acute infarct by CT. MRI could be more sensitive/specific for detection, as clinically directed. Cerebral ventricles: Ventricle size is normal for age. Paranasal sinuses: Included paranasal sinuses are essentially clear. Mastoid air cells: No significant acute finding. Bones/joints: No definite acute skull fracture. Soft tissues: No significant acute finding. Vasculature: Vascular calcifications in the internal carotid arteries. CT/CT head wo con* [id number] IMPRESSION: 1. No acute intracranial hemorrhage or mass effect. 2. No definite acute infarct by CT, see above. 3. Other findings discussed above.
[2022-04-20] MEDS: sodium chloride 0.9% 1,000 ML 999 ML IV (03:12)
[2022-04-20 03:19] LABS: Basophils % 0.2 %; Eosinophils # 0.1 10^3/uL (0.0-0.8); Eosinophils % 0.8 %; Hematocrit 30.5 % (37.0-47.0); Hemoglobin 9.7 g/dL (11.5-15.3); Lymphocytes # 0.9 10^3/uL (0.8-4.8); Lymphocytes % 10.5 %; Mean Corpuscular HGB Conc 31.8 g/dL (30.0-36.0); Mean Corpuscular Hemoglobin 29.5 pg (28.0-34.0); Mean Corpuscular Volume 92.7 fl (81-99); Mean Platelet Volume 9.8 fL (7.4-10.4); Monocytes # 0.7 10^3/uL (0.2-0.9); Monocytes % 7.7 %; Neutrophils # 7.15 10^3/uL (1.8-7.7); Neutrophils % 80.7 %; Nucleated Red Blood Cells % 0 %; Platelet Count 273 10^3/cmm (130-400); Red Blood Count 3.29 10^6/uL (4.1-5.3); Red Cell Distribution Width 13.5 % (12.1-15.1); White Blood Count 8.9 10^3/uL (4.0-10.0)
[2022-04-20 03:37] LABS: Troponin(5th) Baseline 12 ng/L (0-10)
[2022-04-20 03:39] LABS: Alanine Aminotransferase 12 U/L (0-33); Albumin Level 3.7 g/dL (3.5-5.2); Alkaline Phosphatase 137 IU/L (35-105); Aspartate Amino Transferase 22 U/L (0-32); Blood Urea Nitrogen 24 mg/dL (8-23); Calcium 8.6 mg/dL (8.5-10.5); Carbon Dioxide 21 mmol/L (22-29); Chloride 107 mmol/L (98-107); Globulin 2.9 g/dL (1.3-4.6); Glucose 148 mg/dL (65-115); Osmolality Calculated 297 mOsm/kg (285-295); Sodium 140 mmol/L (136-145); Total Bilirubin 0.4 mg/dL (0.15-1.2); Total Protein 6.6 g/dL (6.6-8.7)
--- NOTE | 2022-04-20 04:53 | ECG_ITS ---
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 Measurements Intervals [place] Rate: 74 P: -52 CT: 339 QRS: -24 QRSD: 99 T: 67 QT: 408 QTc: 453 Interpretive Statements SINUS RHYTHM WITH FIRST DEGREE AV BLOCK BORDERLINE LEFT AXIS DEVIATION [QRS AXIS < -20] No previous ECG available for comparison Electronically Signed On 04-20-2022 18:38:20 CDT by Regis Rodas M.D. [id number]
--- NOTE | 2022-04-20 05:10 | PC.NURSE ---
ADMIT NOTE Pt received to floor from ER via [facility] at 0500. Is alert and oriented. Says she just has not felt well for a couple of days then today she remembers being up walking then woke up on the floor. Says she was told she went out again in the ambulance. Had no dizziness or lightheadedness c/o when transferring ambulatory from [facility] to bed. Does report diarrhea fro 2-3 days and says has had a cold with sore throat and dry cough. Oriented to room. Call light in reach. RN to complete admission assessment
[2022-04-20 05:16] LABS: Adenovirus Not Detected (NOT DETECT); Chlamydia Pneumoniae Not Detected (NOT DETECT); Coronavirus 229E,HKU1,NL63,OC4 Not Detected (NOT DETECT); Human Metapneumovirus Not Detected (NOT DETECT); Human Rhinovirus/Enterovirus Not Detected (NOT DETECT); Influenza A Not Detected (NOT DETECT); Influenza A H1 Not Detected (NOT DETECT); Influenza A H1-2009 Not Detected (NOT DETECT); Influenza A H3 Not Detected (NOT DETECT); Influenza B Not Detected (NOT DETECT); Mycoplasma Pneumoniae Not Detected (NOT DETECT); Parainfluenza Virus Type 1 Not Detected (NOT DETECT); Parainfluenza Virus Type 2 Not Detected (NOT DETECT); Parainfluenza Virus Type 3 Not Detected (NOT DETECT); Parainfluenza Virus Type 4 Not Detected (NOT DETECT); Respiratory Syncytial Virus A Not Detected (NOT DETECT); Respiratory Syncytial Virus B Not Detected (NOT DETECT); SARS-COV-2 Not Detected (NOT DETECT)
[2022-04-20 05:33] LABS: Troponin 5 2HR 11.91 ng/L (0-10)
[2022-04-20 05:45] LABS: Troponin 5 2HR Delta -0.09 ABS# (0-10)
--- NOTE | 2022-04-20 05:49 | USCV_ITS ---
Jose M Fairbanks Age: 82 Gender: F : 1940 Exam Date: 04/20/2022 09:40 Ordering Phys: Korey Brower MD Technologist: MARE [place] [facility] [place]: SYNCOPE Risk Factors: Previous Vascular Surgery: Right Brachial BP: / Left Brachial BP: / Right Left Velocity (cm/s) Spectral Plaque Velocity (cm/s) Spectral Plaque Syst/Diast Broadening Syst/Diast Broadening 58.10/ 12.80 Prox CCA 79.50 / 16.20 60.50/ 11.00 Mid CCA 78.60 / 19.70 98.30/ 16.20 Distal CCA 71.80 / 17.90 164.30/31.60 Prox ICA 67.50 / 16.20 105.80/28.70 Mid ICA 111.40/ 35.30 84.90/ 24.30 Distal ICA 68.40 / 21.40 106.00 ECA 92.30 1.67 ICA/CCA 1.40 Antegrade Vertebral Antegrade 40.40/ 14.80 cm/s 62.40/ 20.50 cm/s Tri Subclavian Tri 92.30 118.8 0 CONCLUSIONS Right ICA stenosis 50-69% with prior Right CEA. Moderate atheromatous plaque right mid ICA. Left ICA stenosis <50%. Mild atheromatous plaque left carotid bulb/ICA. Normal antegrade Doppler flow noted in the right vertebral artery. Normal antegrade Doppler flow noted in the left vertebral artery. Azael Leonard MD (Electronically Signed) Final Date: 20 Apr 2022 17:13 S
--- NOTE | 2022-04-20 05:49 | USCV_ITS ---
Jose M Fairbanks Age: 82 Gender: F : 1940 Exam Date: 04/20/2022 09:55 Ordering Phys: Korey Brower MD Technologist: MARE Exam Location: [facility] – [place] Indication: SYNCOPE BP: 148 / 60 HR: 68 Rhythm: Sinus Technical Quality: MEASUREMENTS (Male / Female) Normal Values 2D ECHO LV Diastolic Diameter PLAX 4.8 cm 4.2 - 5.9 / 3.9 - 5.3 cm LV Systolic Diameter PLAX 2.8 cm IVS Diastolic Thickness 1.2 cm 0.6 - 1.0 / 0.6 - 0.9 cm IVS Systolic Thickness 1.8 cm LVPW Diastolic Thickness 1.2 cm 0.6 - 1.0 / 0.6 - 0.9 cm LVPW Systolic Thickness 1.6 cm LVOT Diameter 2.0 cm LV Ejection Fraction 2D Teich 73.7 % LV Ejection Fraction MOD 2C 78.1 % LV Ejection Fraction 2C AL 78.4 % LA Diameter 3.2 cm LA Width 3.9 cm LA Height 4.7 cm RA Width 3.1 cm RA Height 4.8 cm Aorta at Sinotubular Diameter 1.9 cm IVC Diameter 1.3 cm M-MODE Aortic Annulus Diameter 2.8 cm LA Ao Ratio MM 1.3 MV E Point Septal Separation 0.4 cm DOPPLER AV Peak Velocity 131.0 cm/s LVOT Peak Velocity 114.0 cm/s AV Area Cont Eq vti 2.6 cm squared AV Area Cont Eq pk 2.7 cm squared MV Peak Velocity 156.0 cm/s MV Area PHT 2.6 cm squared MV E' Velocity 68.0 cm/s Mitral E to MV E' Ratio 13.2 Mitral E to LV E' Lateral Ratio 14.0 Mitral E to LV E' Septal Ratio 12.7 TR Peak Velocity 304.5 cm/s TR Peak Gradient 37.1 mmHg TR Mean Velocity 239.0 cm/s TR Mean Gradient 24.6 mmHg TR Velocity Time Integral 107.6 cm TV Peak E Velocity 52.0 cm/s Right Atrial Pressure 3.0 mmHg Pulmonary Artery Systolic Pressu 40.1 mmHg PV Peak Velocity 108.0 cm/s RV Acceleration Time 0.1 s RV Ejection Time 0.3 s RV AcT/ET 0.3 FINDINGS Left Ventricle Normal left ventricular size and systolic function, EF 77 %. Mild left ventricular hypertrophy. No regional wall motion abnormalities. Right Ventricle The right ventricle is normal in size and function. Right Atrium Mildly increased right atrial size. Left Atrium Mildly increased left atrial size. Mitral Valve Mild mitral annular calcification. Trace mitral valve regurgitation. Aortic Valve Moderate aortic valve regurgitation. Tricuspid Valve Trace to mild tricuspid valve regurgitation. Pulmonic Valve Pulmonic valve not well visualized. Pericardium No pericardial effusion. Aorta Normal aortic annulus size. IVC Normal size of the inferior vena cava CONCLUSIONS Normal left ventricular size and systolic function, EF 77 %. Mild left ventricular hypertrophy. No regional wall motion abnormalities. Mild biatrial enlargement Mild mitral annular calcification. Trace mitral valve regurgitation. Moderate aortic valve regurgitation. Trace to mild tricuspid valve regurgitation. There is no pericardial effusion. There are no intracardiac masses. No previous study is available for comparison. Dr Ralph Wilhelm MD FACC (Electronically Signed) Final Date: 20 Apr 2022 19:30 S
--- NOTE | 2022-04-20 06:00 | P.HP_ITS ---
Providers/Chief Complaint Admitting Physician: Korey Brower MD Primary Care Provider: Martha German, FISHERIES MANAGER-C Chief Complaint: syncopal episode History of Present Illness Jose M Fairbanks is a 82 year old female with a past medical history of right carotid artery stenosis status post carotid endarterectomy, history of liver cirrhosis, history of iron deficiency anemia, history of gastric bypass, history of atrial fibrillation not on anticoagulation due to intolerance, hypertension, hyperlipidemia, hypothyroidism, history of type 2 diabetes mellitus diet- controlled who presents to [facility] due to fatigue, malaise, sore throat, lightheadedness, syncopal episode. Patient tells me that recently she and her had driven up to [place], she had a family democrat with her children she recently return Tuesday morning at roughly 2 PM, when she started to not feel well, having fatigue, malaise, sore throat, feeling lightheaded. Denies any chest pain, no palpitations, shortness of breath. No calf pain, no calf swelling. No hematemesis. She could not put her finger on, so she was getting up to the kitchen to get a glass of water when she felt lightheaded, she felt like she was seeing him to the ground so her caught her and she tells me she passed out, for a few seconds, and the next and she remembers she was on the floor, denies hitting her head, her lowered her to the ground, they called EMS, and she tells me that she passed out 1 more time in the EMS truck. Denies a history of passing out in the past. No strokelike symptoms, no facial droop, slurring of words no focal weakness. No history of seizures. Denies any dysuria. Does report diarrhea. Review of Systems Const: Reports: chills, body aches, fatigue and malaise; Denies: fever(s) Eyes: Denies: change in vision or blurry vision ENMT: Reports: throat pain Card: Reports: syncope; Denies: chest pain, palpitations or irregular heart rhythm Resp: Denies: dyspnea, productive cough, non-productive cough or wheezing GI: Denies: abdominal pain, nausea, vomiting, hematochezia or melena : Denies: flank pain or dysuria Musc: Denies: back pain Neuro: Denies: headache(s) Endo: Denies: polyuria or polydipsia Medications/Allergies Home Medications Medication Instructions Recorded Confirmed Last Taken Type ascorbate calcium (vitamin C) 1,000 mg PO DAILY 01/24/20 04/13/22 Unknown History aspirin 81 mg tablet,delayed 81 mg PO DAILY 01/24/20 04/13/22 Unknown History release (Adult Low Dose Aspirin) grape seed caps PO 01/24/20 04/13/22 Unknown History tizanidine 4 mg tablet (Zanaflex) 4 mg PO BID PRN #20 tab 11/09/21 04/13/22 Unknown Rx amlodipine 2.5 mg tablet 2.5 mg PO DAILY #180 tab 11/30/21 04/13/22 Unknown Rx mupirocin 2 % topical ointment 1 applic TOPICAL BID #22 g 01/22/22 04/13/22 Unknown Rx captopril 50 mg tablet 50 mg PO TID 30 Days #90 tab 01/24/22 04/13/22 Unknown Rx levothyroxine 125 mcg tablet See Rx Instructions PO .COMPLEX 01/24/22 04/13/22 Unknown Rx #30 tab metoprolol tartrate 100 mg tablet 100 mg PO BID 30 Days #60 tab 01/24/22 04/13/22 Unknown Rx hydrochlorothiazide 12.5 mg tablet 12.5 mg PO QAM #30 tab 02/05/22 04/13/22 Unknown Rx ibandronate 150 mg tablet (Boniva) 150 mg PO .month #1 tab 03/23/22 04/13/22 Unknown Rx nitroglycerin 0.4 mg sublingual 0.4 mg SUBLINGUAL Q5M PRN #25 tab 03/30/22 04/13/22 Unknown Rx tablet cholecalciferol (vitamin D3) 125 125 mcg PO DAILY 04/13/22 04/13/22 Unknown History mcg (5,000 unit) capsule Allergies Allergy/AdvReac Type Severity Reaction Status Date / Time dabigatran etexilate Allergy ADR-Muscle Verified 04/13/22 08:37 [From Pradaxa] Pain rivaroxaban [From Xarelto] Allergy ADR-Heartbu Verified 04/13/22 08:37 rn warfarin Allergy ALGY-Swell Verified 04/13/22 08:37 Lip/Tongue/Throat PFSH Acute PFSH: Medical History Acquired hypothyroidism Essential hypertension Gastric reflux Gout, unspecified Hepatic cirrhosis Migraine Oral ulceration Post-menopausal osteoporosis Tachycardia Surgical History History of carotid endarterectomy History of carpal tunnel release History of cataract extraction History of gastric bypass Hx of section 3 times Hx of cholecystectomy Family History Other Cancer Diabetes Hypertension Social History Smoking and tobacco status: former smoker Second hand smoke exposure: No Smoking risk assessment/counseling performed?: No Alcohol intake: never Desire information about alcohol rehabilitation?: No Counseling given: No Desire information about substance/drug rehabilitation?: No Counseling given: No Adopted: No Caregiver/support person: No Lives independently: Yes Household members: spouse Housing: House Marital status: Number of children: 3 service: No Current occupational status: retired History of recent travel: No Current gender identity: Female Vitals/I&O/Wt Last Vital Signs Temp 97.4 F L 04/20/22 03:00 Pulse 75 04/20/22 04:30 Resp 26 H 04/20/22 04:30 BP 148/60 04/20/22 04:30 Pulse Ox 89 L 04/20/22 04:30 04/19/22 04/19/22 04/20/22 14:59 22:59 06:59 Intake Total 1000 / 1000 Balance 1000 / 1000 Weight last 48 hrs Weight 70.307 kg Physical Exam Const: COMMON NORMALS: no acute distress and patient oriented x3 HENMT: COMMON NORMALS: normocephalic HEAD & SCALP: normocephalic Eye: COMMON NORMALS: Equal, round and reactive pupils present and EOMs intact bilaterally Neck/C-Spine: COMMON NORMALS: no JVD Resp: COMMON NORMALS: normal respiratory effort, No retractions, No use of accessory muscles and clear to auscultation bilaterally AUSCULTATION: clear to auscultation bilaterally Cardio: COMMON NORMALS: no JVD, regular rate, regular rhythm, S1 normal heart sound present and S2 normal heart sound present RATE: regular rate RHYTHM: regular rhythm HEART SOUNDS: S1 normal heart sound present and S2 normal heart sound present GI: COMMON NORMALS: Normal to inspection, nondistended, normoactive bowel sounds present, Soft to palpation, non-tender, No hepatosplenomegaly present, no masses and no bruits PALPATION: Yes Soft to palpation and Yes No hepatosplenomegaly present Extremity: COMMON NORMALS: capillary refill normal, no clubbing, cyanosis or edema, no calf tenderness and no pedal edema Neuro: COMMON NORMALS: patient oriented x3 Psych: COMMON NORMALS: mental status grossly normal Data : 04/20/22 03:00 04/20/22 03:00 A&P Assessment and plan (1) Syncopal episodes: Status: Acute Qualifiers: Syncope type: unspecified Qualified Code(s): R55 - Syncope and collapse (2) Diarrhea: Status: Acute (3) Bilateral carotid artery stenosis: Status: Acute (4) Atrial fibrillation: Status: Acute Qualifiers: Atrial fibrillation type: paroxysmal Qualified Code(s): I48.0 - Paroxysmal atrial fibrillation (5) History of carotid endarterectomy: Status: Acute (6) Iron deficiency anemia: Status: Chronic (7) Hepatic cirrhosis: Status: Chronic Qualifiers: Hepatic cirrhosis type: unspecified hepatic cirrhosis Ascites presence: unspecified Qualified Code(s): K74.60 - Unspecified cirrhosis of liver (8) Acquired hypothyroidism: Status: Chronic (9) Essential hypertension: Status: Chronic Plan Syncopal episodes -Likely related to dehydration, diarrhea -However she did travel from [place] -Continue IV fluids -Orthostatic vitals -Order D-dimer, if elevated will consider CT angiogram and venous ultrasound -Cardiac echo -Carotid ultrasound, history of carotid artery stenosis, status post right carotid endarterectomy -Follow UA -Stool studies -Serial EKGs for serial troponins, telemetry monitoring -Full code -Lovenox for DVT prophylaxis Diet-controlled type 2 diabetes mellitus, check insulin sliding scale Fatigue, malaise, sore throat, order strep throat Acute on chronic anemia, hemoglobin 9.7 history of iron deficiency anemia History of gastric bypass surgery History of atrial fibrillation, not on anticoagulation due to intolerance to anticoagulants, anemia Hypothyroidism, continue levothyroxine Hypertension, hold medications Attestations Medical Necessity Statement*: Patient requires hospitalization, outpatient with observation, for syncopal episodes Coding Level of Care Code Acute Supervisor Electronics Testing for g Fwd Diagnoses Syncopal episodes R55 Syncope type: unspecified Diarrhea R19.7 Bilateral carotid artery stenosis I65.23 Atrial fibrillation I48.0 Atrial fibrillation type: paroxysmal History of carotid endarterectomy Z98.890 Iron deficiency anemia D50.9 Hepatic cirrhosis K74.60 Hepatic cirrhosis type: unspecified hepatic cirrhosis Ascites presence: unspecified Acquired hypothyroidism E03.9 Essential hypertension I10
[2022-04-20 06:19] LABS: Estmated Average Glucose 117; Hemoglobin A1C 5.7 % (4.0-6.0)
[2022-04-20] MEDS: enoxaparin 40 mg/0.4 mL Syringe SUBCUT (06:26)
[2022-04-20] MEDS: pantoprazole 40 mg SDV IVP (06:26)
[2022-04-20] MEDS: sodium chloride 0.9% 1,000 ML 100 ML IV ×2 (06:27→15:43)
[2022-04-20 06:44] LABS: Thyroid Stimulating Hormone 0.65 uIU/mL (0.27-4.20)
[2022-04-20 06:48] LABS: Magnesium 1.9 mg/dL (1.7-2.3); NT Pro B Type Natriuretic Pept 667 pg/mL (0-450)
[2022-04-20 06:50] LABS: D Dimer 1.13 ug/mIFEU (0-0.59)
[2022-04-20 06:54] LABS: Lactic Sepsis W/Reflex 0.6 mmol/L (0.5-2.2)
[2022-04-20 08:47] LABS: Glucose Point of Care 127 mg/dL (70-110)
--- NOTE | 2022-04-20 08:53 | ECG_ITS ---
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 Measurements Intervals Tracy Rate: 68 P: -8 NE: 334 QRS: -21 QRSD: 104 T: 57 QT: 399 QTc: 426 Interpretive Statements SINUS RHYTHM WITH FIRST DEGREE AV BLOCK BORDERLINE LEFT AXIS DEVIATION [QRS AXIS < -20] Compared to ECG 04/20/2022 04:48:45 No significant changes Electronically Signed On 04-20-2022 18:38:10 CDT by Regis Rodas M.D. [email or web address]
[2022-04-20] MEDS: levothyroxine 125 mcg Tablet PO (09:19)
[2022-04-20] MEDS: aspirin 81 mg EC Tablet PO (09:19)
[2022-04-20 10:47] LABS: Troponin 5 6HR 12.89 ng/L (0-10)
[2022-04-20 10:49] LABS: Troponin 5 6HR Delta 0.89 ng/L (0-12)
--- NOTE | 2022-04-20 11:40 | USCV_ITS ---
Jose M Fairbanks Age: 82 Gender: F : 1940 Exam Date: 04/20/2022 15:10 Ordering Phys: Víctor Escalona MD Technologist: MARE Exam Location: [facility] – [place] Indication: ELEVATED D DIMER PROCEDURES: Venous duplex imaging was performed in bilateral lower extremities. The following venous structures were evaluated: common femoral vein, profunda vein, proximal portion of the greater saphenous vein, superficial femoral vein, and the popliteal vein. In addition, the posterior tibial and peroneal trunk were evaluated. Serial compression, augmentation maneuvers, and spectral Doppler flow evaluation were performed. FINDINGS: No evidence of DVT seen in any vessel visualized at this time. CONCLUSIONS No evidence of right lower extremity DVT. No evidence of left lower extremity DVT. Azael Leonard MD (Electronically Signed) Final Date: 20 Apr 2022 16:58 S
[2022-04-20 12:15] LABS: Glucose Point of Care 101 mg/dL (70-110)
[2022-04-20 14:44] LABS: Anion Gap 15.6 (5-19); Blood Urea Nitrogen 20 mg/dL (8-23); Calcium 8.4 mg/dL (8.5-10.5); Carbon Dioxide 19 mmol/L (22-29); Chloride 107 mmol/L (98-107); Glucose 114 mg/dL (65-115); Iron 91 ug/dL (37-145); Osmolality Calculated 287 mOsm/kg (285-295); Percent Saturation 28.1 % (20-50); Potassium 4.6 mmol/L (3.5-5.1); Sodium 137 mmol/L (136-145); Total Iron Binding Capacity 323 mcg/dl; Unsaturated Iron Binding 232 ug/dL (112-347)
[2022-04-20 14:57] LABS: Rapid Strep A Test Negative (Negative)
[2022-04-20 14:59] LABS: Folate Level 12.6 ng/mL (4.8-37.3)
[2022-04-20 15:00] LABS: Vitamin B12 648 pg/mL (232-1245)
[2022-04-20 15:15] LABS: Influenza A by IFA Negative (Negative); Influenza B by IFA Negative (Negative)
[2022-04-20] MEDS: meclizine 25 mg tablet PO ×2 (15:41→20:26)
[2022-04-20 17:27] LABS: Glucose Point of Care 87 mg/dL (70-110)
[2022-04-20 19:00] LABS: Add Urine Microscopic? NO; Charge for UA Resulting for Rev
[2022-04-20 19:11] LABS: Bilirubin Urine Neg (Negative); Blood Urine Neg (Negative); Glucose Urine UA Norm (Normal); Ketones Urine Negative (Negative); Leukocyte Esterase Urine Negative (Negative); Nitrate Urine Negative (Negative); Protein Urine Neg (Negative); Urine Appearance Clear (CLEAR); Urine Color Yellow (Yellow); Urobilinogen Urine Norm (Negative); pH Urine 5 (5-7)
[2022-04-20] MEDS: metoprolol tartrate 50 mg Tablet PO (20:26)
[2022-04-20 21:28] LABS: Glucose Point of Care 109 mg/dL (70-110)
[2022-04-21] VITALS (8 sets, daily range): BP systolic 126–155; BP diastolic 56–75; PULSE 57–74; RESP 12–16; TEMP 36.4–36.9; O2SAT 93–98
[2022-04-21] MEDS: sodium chloride 0.9% 1,000 ML 100 ML IV (02:15)
[2022-04-21 04:55] LABS: Basophils % 0.7 %; Eosinophils # 0.1 10^3/uL (0.0-0.8); Eosinophils % 2.5 %; Hematocrit 28.3 % (37.0-47.0); Hemoglobin 8.9 g/dL (11.5-15.3); Lymphocytes # 1.5 10^3/uL (0.8-4.8); Lymphocytes % 26.5 %; Mean Corpuscular HGB Conc 31.4 g/dL (30.0-36.0); Mean Corpuscular Hemoglobin 29.3 pg (28.0-34.0); Mean Corpuscular Volume 93.1 fl (81-99); Mean Platelet Volume 10.1 fL (7.4-10.4); Monocytes # 0.6 10^3/uL (0.2-0.9); Monocytes % 10.7 %; Neutrophils # 3.37 10^3/uL (1.8-7.7); Neutrophils % 59.2 %; Nucleated Red Blood Cells % 0 %; Platelet Count 244 10^3/cmm (130-400); Red Blood Count 3.04 10^6/uL (4.1-5.3); Red Cell Distribution Width 13.8 % (12.1-15.1); White Blood Count 5.7 10^3/uL (4.0-10.0)
[2022-04-21 05:19] LABS: Alanine Aminotransferase 9 U/L (0-33); Albumin Level 3.1 g/dL (3.5-5.2); Alkaline Phosphatase 116 IU/L (35-105); Aspartate Amino Transferase 15 U/L (0-32); Blood Urea Nitrogen 15 mg/dL (8-23); Calcium 8.2 mg/dL (8.5-10.5); Carbon Dioxide 22 mmol/L (22-29); Chloride 110 mmol/L (98-107); Globulin 2.8 g/dL (1.3-4.6); Glucose 106 mg/dL (65-115); Magnesium 1.6 mg/dL (1.7-2.3); Osmolality Calculated 291 mOsm/kg (285-295); Phosphorus 3.1 mg/dL (2.5-4.5); Sodium 140 mmol/L (136-145); Total Bilirubin 0.4 mg/dL (0.15-1.2); Total Protein 5.9 g/dL (6.6-8.7)
[2022-04-21] MEDS: enoxaparin 40 mg/0.4 mL Syringe SUBCUT (05:48)
[2022-04-21] MEDS: pantoprazole 40 mg SDV IVP (05:48)
[2022-04-21 06:55] LABS: Glucose Point of Care 102 mg/dL (70-110)
[2022-04-21] MEDS: levothyroxine 125 mcg Tablet PO (09:14)
[2022-04-21] MEDS: metoprolol tartrate 50 mg Tablet PO (09:14)
[2022-04-21] MEDS: meclizine 25 mg tablet PO (09:15)
[2022-04-21] MEDS: amlodipine 5 mg Tablet 2.5 MG PO (09:15)
[2022-04-21] MEDS: aspirin 81 mg EC Tablet PO (09:15)
--- NOTE | 2022-04-21 10:15 | MR_ITS ---
WS: [id number] MRI HEAD WITHOUT CONTRAST TECHNIQUE: Sagittal T1, T2 axial, T2 axial FLAIR, axial and coronal T1 images, axial susceptibility w eighted imaging, axial diffusion weighted images, and coronal T2 images were obtained. CLINICAL INFORMATION: possible posterior cva, dizziness COMPARISON: CT April 20, 2022 FINDINGS: No evidence of restricted diffusion to suggest acute ischemia. Ventricular system and basal cisterns are patent. Mild to moderate small vessel changes. Moderate parenchymal volume loss. Normal posterior fossa. Normal vascular flow voids at the skull base. No extra-axial fluid collections. No evidence o f mass or mass effect. Mild mucosal thickening paranasal sinuses. Mastoid air cells demonstrate mild mucosal thickening LEFT greater than RIGHT. Normal optic chiasm and pituitary infundibulum. Moderate to advanced atrophy mesial temporal lobes an d hippocampal formations. Normal cavernous sinuses and Meckel's the. MR/MR head wo con* [id number] IMPRESSION: 1. No evidence of restricted diffusion to suggest acute ischemia. 2. Mild to moderate small vessel changes with moderate parenchymal volume loss frontal lobes. 3. Moderate to advanced symmetric atrophy mesial temporal lobes and hippocampa l formations. 4. Normal posterior fossa. 5. Mild mucosal thickening LEFT mastoid tip. Mild mucosal thickening ethmoid a ir cells. 6. Normal optic chiasm and pituitary infundibulum. 7. No hemosiderin on susceptibly weighted images.
--- NOTE | 2022-04-21 10:47 | PC.CHAP ---
Pastoral Care Encounter/Spiritual Assessment Type of Contact [] Declined court security officer visit [] Patient/Family/Request visit [] Outpatient visit [] Follow-up visit [] Physician referral [] Code/Alert [] Routine visit [] Staff referral [] Actively dying [] Patient sleeping [] Family support [] [] Out of room [] Palliative care [] [] Receiving care in room [] Pre-surgical visit [] Trauma [] Long length of stay [] ICU visit [] Other: Relational/Emotional Strength [] Patient feels connected with others/family/visitors/staff [] Distress [] Loneliness/isolation [] Abandonment Spirituality of Patient [] Person of [place] [] Attends Quaker of their [place] [] Believes in Prayer [] Reads Bible or Jehovah'S Witness materials [] There are Spiritual issues to be addressed Direct Service Provider Interventions [] Prayer [] Active listening [] Non-anxious presence [] Spiritual/emotional support [] Crisis/trauma care [] Spiritual counseling [] Bereavement support [] Provided bereavement packet [] Provided Bible/devotional materials [] Provided toy/stuffed animal, coloring book to patient or family member [] Provided Communion [] Anointing/Devine [] Salvation [] Completed spiritual assessment [] Other: Impact on Illness or Injury [] Angry [] Fearful [] Anxious [] Often cries [] Exhaustion [] Unable to work [] Unable to attend religious [] Unable to walk/stand [] Unable to read [] Unable to drive [] Unable to eat/drink [] Unable to sleep [] Unable to be with family [] Patient intubated [] Other: Summary Time spent with patient
[2022-04-21 11:47] LABS: Glucose Point of Care 172 mg/dL (70-110)
--- NOTE | 2022-04-21 12:26 | P.DS_ITS ---
Discharge Providers Date of Admission: 04/20/22 04:15 Date of Discharge: April 21, 2022 Attending Provider at Admission: Korey Brower MD Attending Provider at Discharge: Víctor Escalona MD Primary Care Provider: CHOCO Irizarry Diagnoses at Discharge Discharge Diagnosis (1) Syncopal episodes: Status: Acute Qualifiers: Syncope type: unspecified Qualified Code(s): R55 - Syncope and collapse (2) Diarrhea: Status: Acute (3) Bilateral carotid artery stenosis: Status: Acute (4) Atrial fibrillation: Status: Acute Qualifiers: Atrial fibrillation type: paroxysmal Qualified Code(s): I48.0 - Paroxysmal atrial fibrillation (5) History of carotid endarterectomy: Status: Acute (6) Iron deficiency anemia: Status: Chronic (7) Hepatic cirrhosis: Status: Chronic Qualifiers: Hepatic cirrhosis type: unspecified hepatic cirrhosis Ascites presence: unspecified Qualified Code(s): K74.60 - Unspecified cirrhosis of liver (8) Acquired hypothyroidism: Status: Chronic (9) Essential hypertension: Status: Chronic Reason for Visit Reason for Visit: syncopal episode Hospital Course Hospital Course Jose M Fairbanks is a 82 year old female with a past medical history of right carotid artery stenosis status post carotid endarterectomy, history of liver cirrhosis being worked up for liver transplant history of iron deficiency anemia, history of gastric bypass, history of atrial fibrillation not on anticoagulation due to intolerance, hypertension, hyperlipidemia, hypothyroidism, history of type 2 diabetes mellitus diet-controlled who presents to [facility] due to fatigue, malaise, sore throat, lightheadedness, syncopal episode.? Patient tells me that recently she and her had driven up to [place], she had a family democrat with her children she recently return Tuesday morning at roughly 2 PM, when she started to not feel well, having fatigue, malaise, sore throat, feeling lightheaded.? Denies any chest pain, no palpitations, shortness of breath.? No calf pain, no calf swelling.? No hematemesis.? She could not put her finger on, so she was getting up to the kitchen to get a glass of water when she felt lightheaded, she felt like she was seeing him to the ground so her caught her and she tells me she passed out, for a few seconds, and the next and she remembers she was on the floor, denies hitting her head, her lowered her to the ground, they called EMS, and she tells me that she passed out 1 more time in the EMS truck.? Denies a history of passing out in the past.? No strokelike symptoms, no facial droop, slurring of words no focal weakness. She does have history of frequent episodes of dizziness in the past as well for which she has had multiple work-up including Holter monitor. She also had an Tod's maneuver done for dizziness in the past which helped her for a short time. Patient was admitted to the hospital for further evaluation and management. Orthostatic hypotension was ruled out. On admission she was found to have soft blood pressures for which antihypertensives were withheld. MRI was done to rule out posterior circulation stroke. Patient's blood pressure remained stable. She was started on meclizine. She responded well to the treatment. She denies of having any further dizziness both at rest and on ambulation. Patient did not require further Tod's maneuver. She is been discharged hemodynamically stable condition with advised to follow- up with his primary care provider within next 1 week with a blood pressure diary for further adjustment of antihypertensives. Her dose of captopril has been decreased to 25 mg 3 times a day, hydrochlorothiazide has been withheld. Carotid artery Dopplers were done which were concerning for moderate stenosis at the site of right carotid arterectomy. She is to follow-up with Dr. Nair within 2 weeks for further evaluation and management. Physical Exam Const: COMMON NORMALS: no acute distress and patient oriented x3 HENMT: COMMON NORMALS: normocephalic HEAD & SCALP: normocephalic Eye: COMMON NORMALS: Equal, round and reactive pupils present and EOMs intact bilaterally PUPIL: Yes Equal, round and reactive pupils present Neck/C-Spine: COMMON NORMALS: no JVD Resp: COMMON NORMALS: normal respiratory effort, No retractions, No use of accessory muscles and clear to auscultation bilaterally AUSCULTATION: clear to auscultation bilaterally Cardio: COMMON NORMALS: no JVD, regular rate, regular rhythm, S1 normal heart sound present and S2 normal heart sound present RATE: regular rate RHYTHM: regular rhythm HEART SOUNDS: S1 normal heart sound present and S2 normal heart sound present GI: COMMON NORMALS: Normal to inspection, nondistended, normoactive bowel sounds present, Soft to palpation, non-tender, No hepatosplenomegaly present, no masses and no bruits PALPATION: Yes Soft to palpation and Yes No hepatosplenomegaly present Extremity: COMMON NORMALS: capillary refill normal, no clubbing, cyanosis or edema, no calf tenderness and no pedal edema Neuro: COMMON NORMALS: patient oriented x3 Psych: COMMON NORMALS: mental status grossly normal Discharge Data Studies Completed and Pending Completed Studies During Hospitalization Category Date Time Status CT cervical spin wo con* [id number] Urgent Cat Scan 04/20/22 02:[address] head wo con* [id number] Urgent Cat Scan 04/20/22 03:06 Completed XR chest 1V portable [id number] Stat Exams 04/20/22 02:53 Completed MR head wo con* [id number] Routine MRI 04/21/22 10:15 Completed CV carotid duplex BI* [id number] Routine Ultrasound 04/20/22 05:49 [place] [id number] Urgent Ultrasound 04/20/22 11:40 Completed CV. echo complete* [id number] Routine Ultrasound 04/20/22 05:49 Completed Pending at discharge Category Date Time Status Blood Culture Stat Lab 04/20/22 10:07 Results Clostridioides Difficile PCR Routine Lab 04/20/22 06:10 Ordered Complete Blood Count w/Auto AM LABS Lab 04/22/22 04:00 Ordered Complete Blood Count w/Auto AM LABS Lab 04/23/22 04:00 Ordered Comprehensive Metabolic Panel AM LABS Lab 04/22/22 04:00 Ordered Comprehensive Metabolic Panel AM LABS Lab 04/23/22 04:00 Ordered Enteric Bacterial Panel by PCR Routine Lab 04/20/22 06:10 Ordered Enteric Parasite Panel by PCR Routine Lab 04/20/22 06:10 Ordered Immunochemical Fecal OCB Routine Lab 04/20/22 06:10 Ordered Lactoferrin Routine Lab 04/20/22 06:10 Ordered Magnesium AM LABS Lab 04/22/22 04:00 Ordered Magnesium AM LABS Lab 04/23/22 04:00 Ordered Phosphorus AM LABS Lab 04/22/22 04:00 Ordered Phosphorus AM LABS Lab 04/23/22 04:00 Ordered Streptococcus Culture Group A Stat Lab 04/20/22 14:30 Received Radiology Impressions Chest X-Ray 04/20/22 02:53 IMPRESSION: No acute abnormality demonstrated. Cervical Spine CT 04/20/22 02:59 IMPRESSION: 1. No definite acute fracture or post traumatic subluxation by CT. 2. Degenerative/arthritic changes as above. 3. Other findings discussed above. Head CT 04/20/22 03:06 IMPRESSION: 1. No acute intracranial hemorrhage or mass effect. 2. No definite acute infarct by CT, see above. 3. Other findings discussed above. Head MRI 04/21/22 10:15 IMPRESSION: 1. No evidence of restricted diffusion to suggest acute ischemia. 2. Mild to moderate small vessel changes with moderate parenchymal volume loss frontal lobes. 3. Moderate to advanced symmetric atrophy mesial temporal lobes and hippocampal formations. 4. Normal posterior fossa. 5. Mild mucosal thickening LEFT mastoid tip. Mild mucosal thickening ethmoid air cells. 6. Normal optic chiasm and pituitary infundibulum. 7. No hemosiderin on susceptibly weighted images. Echocardiogram CONCLUSIONS ?Normal left ventricular size and systolic function, EF 77 %.? Mild left ventricular hypertrophy. ?No regional wall motion abnormalities. ?Mild biatrial enlargement ?Mild mitral annular calcification. Trace mitral valve?regurgitation. ?Moderate? aortic valve regurgitation. ?Trace to mild tricuspid valve regurgitation. ?There is no pericardial effusion. ?There are no intracardiac masses. ?No previous study is available for comparison. ?Dr Ralph Wilhelm MD [facility] ?(Electronically Signed) ?Final Date:? ? ? 20 Apr 2022 19:30 Laboratory Results WBC 5.7 10^3/uL (4.0-10.0) 04/21/22 04:23 RBC 3.04 10^6/uL (4.1-5.3) L 04/21/22 04:23 Hgb 8.9 g/dL (11.5-15.3) L 04/21/22 04:23 Hct 28.3 % (37.0-47.0) L 04/21/22 04:23 MCV 93.1 fl (81-99) 04/21/22 04:23 MCH 29.3 pg (28.0-34.0) 04/21/22 04:23 MCHC 31.4 g/dL (30.0-36.0) 04/21/22 04:23 RDW 13.8 % (12.1-15.1) 04/21/22 04:23 Plt Count 244 10^3/cmm (130-400) 04/21/22 04:23 MPV 10.1 fL (7.4-10.4) 04/21/22 04:23 Neut % (Auto) 59.2 % 04/21/22 04:23 Lymph % (Auto) 26.5 % 04/21/22 04:23 Banks % (Auto) 10.7 % 04/21/22 04:23 Eos % (Auto) 2.5 % 04/21/22 04:23 Baso % (Auto) 0.7 % 04/21/22 04:23 Neut # (Auto) 3.37 10^3/uL (1.8-7.7) 04/21/22 04:23 Lymph # (Auto) 1.5 10^3/uL (0.8-4.8) 04/21/22 04:23 Banks # (Auto) 0.6 10^3/uL (0.2-0.9) 04/21/22 04:23 Eos # (Auto) 0.1 10^3/uL (0.0-0.8) 04/21/22 04:23 Baso # (Auto) 0.0 10^3/uL (0.0-0.1) 04/21/22 04:23 Nucleated RBC % (auto) 0 % 04/21/22 04:23 Nucleated RBCs # 0.0 /100WBC 04/21/22 04:23 D-Dimer 1.13 ug/mIFEU (0-0.59) H 04/20/22 06:17 Sodium 140 mmol/L (136-145) 04/21/22 04:23 Potassium 4.0 mmol/L (3.5-5.1) 04/21/22 04:23 Chloride 110 mmol/L (98-107) H 04/21/22 04:23 Carbon Dioxide 22 mmol/L (22-29) 04/21/22 04:23 Anion Gap 12.0 (5-19) 04/21/22 04:23 BUN 15 mg/dL (8-23) 04/21/22 04:23 Creatinine 1.1 mg/dL (0.5-0.9) H 04/21/22 04:23 GFR Calculation Not Reportable 04/21/22 04:23 Glucose 106 mg/dL (65-115) 04/21/22 04:23 POC Glucose 172 mg/dL (70-110) H 04/21/22 11:22 Estimat Average Glucose 117 04/20/22 03:00 Hemoglobin A1c 5.7 % (4.0-6.0) 04/20/22 03:00 Calculated Osmolality 291 mOsm/kg (285-295) 04/21/22 04:23 Lactic Acid 0.6 mmol/L (0.5-2.2) 04/20/22 06:17 Calcium 8.2 mg/dL (8.5-10.5) L 04/21/22 04:23 Phosphorus 3.1 mg/dL (2.5-4.5) 04/21/22 04:23 Magnesium 1.6 mg/dL (1.7-2.3) L 04/21/22 04:23 Iron 91 ug/dL (37-145) 04/20/22 10:07 TIBC 323 mcg/dl 04/20/22 10:07 % Saturation 28.1 % (20-50) 04/20/22 10:07 Unsat Iron Binding 232 ug/dL (112-347) 04/20/22 10:07 Total Bilirubin 0.4 mg/dL (0.15-1.2) 04/21/22 04:23 AST 15 U/L (0-32) 04/21/22 04:23 ALT 9 U/L (0-33) 04/21/22 04:23 Alkaline Phosphatase 116 IU/L (35-105) H 04/21/22 04:23 Troponin T Baseline 12 ng/L (0-10) H 04/20/22 03:00 Troponin T 120 Minute 11.91 ng/L (0-10) H 04/20/22 04:50 Delta Troponin T -0.09 ABS# (0-10) L 04/20/22 04:50 Troponin T Hi Sens 6Hr 12.89 ng/L (0-10) H 04/20/22 10:07 Troponin T Hi Sens 6Hr Delta 0.89 ng/L (0-12) 04/20/22 10:07 NT-Pro-B Natriuret Pep 667 pg/mL (0-450) H 04/20/22 04:50 C-Reactive Protein 3.0 mg/L (0.0-4.9) 04/20/22 10:07 Total Protein 5.9 g/dL (6.6-8.7) L 04/21/22 04:23 Albumin 3.1 g/dL (3.5-5.2) L 04/21/22 04:23 Globulin 2.8 g/dL (1.3-4.6) 04/21/22 04:23 Vitamin B12 648 pg/mL (232-1245) 04/20/22 10:07 Folate 12.6 ng/mL (4.8-37.3) 04/20/22 03:00 TSH 0.65 uIU/mL (0.27-4.20) 04/20/22 04:50 Urine Color Yellow (Yellow) 04/20/22 16:52 Urine Appearance Clear (CLEAR) 04/20/22 16:52 Urine pH 5 (5-7) 04/20/22 16:52 Ur Specific [place] 1.010 (1.005-1.030) 04/20/22 16:52 Urine Protein Neg (Negative) 04/20/22 16:52 Urine Glucose (UA) Norm (Normal) 04/20/22 16:52 Urine Ketones Negative (Negative) 04/20/22 16:52 Urine Blood Neg (Negative) 04/20/22 16:52 Urine Nitrate Negative (Negative) 04/20/22 16:52 Urine Bilirubin Neg (Negative) 04/20/22 16:52 Urine Urobilinogen Norm mg/dL (Negative) 04/20/22 16:52 Ur Leukocyte Esterase Negative (Negative) 04/20/22 16:52 Coronavirus 229E (PCR) Not detected (NOT DETECT) 04/20/22 03:03 Influenza Type A Ag Negative (Negative) 04/20/22 14:30 Influenza Type B Ag Negative (Negative) 04/20/22 14:30 SARS-CoV-2 (PCR) Not detected (NOT DETECT) 04/20/22 03:03 Group A Strep Rapid Negative (Negative) 04/20/22 14:30 Vitals Last Vital Signs Temp 98.2 F 04/21/22 11:15 Pulse 68 04/21/22 11:15 Resp 16 04/21/22 11:15 BP 150/65 04/21/22 11:15 Pulse Ox 98 04/21/22 11:15 Discharge Plan Discharge Patient Disposition: Home Condition: Stable Prescriptions: New meclizine 25 mg Tablet 25 mg PO BID PRN (Reason: dizziness) Qty: 15 0RF Continued aspirin [Adult Low Dose Aspirin] 81 mg tablet,delayed release (DR/EC) 81 mg PO DAILY 0RF amlodipine 2.5 mg tablet 2.5 mg PO DAILY Qty: 180 3RF mupirocin 2 % ointment 1 applic topical BID Qty: 22 0RF levothyroxine 125 mcg tablet See Rx Instructions PO .COMPLEX Qty: 30 2RF Rx Instructions: 1 full tab 6 days 1/2 tab 1 day PO; dose change metoprolol tartrate 100 mg tablet 100 mg PO BID 30 Days Qty: 60 2RF Rx Instructions: dose increase goal heart rate 60-80 in minute cholecalciferol (vitamin D3) 125 mcg (5,000 unit) capsule 125 mcg PO DAILY 0RF ibandronate [Boniva] 150 mg tablet 150 mg PO .month Qty: 1 0RF nitroglycerin 0.4 mg tablet, sublingual 0.4 mg SUBLINGUAL Q5M PRN (Reason: chest pain) Qty: 25 0RF Rx Instructions: use every 5 minutes for 3 doses if pain not resolved go to ER. Vitamin C 1,000 mg Tablet 500 mg PO BID 0RF Grape Seed 50 mg Capsule 100 mg PO DAILY 0RF Changed captopril 50 mg tablet 25 mg PO TID 30 Days Qty: 90 2RF Held hydrochlorothiazide 12.5 mg tablet 12.5 mg PO QAM Qty: 30 2RF Hold Instructions: Resume on 05/05/22. Discharge Orders: Discharge Order (Routine); Ordered 04/21/22 Ordered By: Víctor Escalona Referrals: Martha German FNP-C [Primary Care Provider] - 7-10 days Holland Lanier MD [Physician] - 2 weeks Discharge Diet: Cardiac Discharge Activity: Resume usual activity and Increase activity as tolerated Patient Instructions: Opioid Safety Activity Restrictions/Additional Instructions: For pain medications have been changed. Dose of Toprol has been decreased to 25 mg 3 times a day. Do not take hydrochlorothiazide going forward for next 2 weeks. Please monitor blood pressure daily at home and maintain a blood pressure diary and follow-up with a primary care provider within the next 10 days for further adjustment of antihypertensives. Please follow-up with Dr. Lanier in 2 weeks for further evaluation and management of carotid artery stenosis post carotid enterectomy. You can take meclizine 25 mg twice daily on as-needed basis for dizziness. Discharge Attestations Time Spent in Discharge Care*: greater than 30 min Specific Discharge Activities: educating patient, educating and/or supporting family/caregiver, discussing with pcp/other providers, discussing with high risk case manager/social workers/dc planners, documenting/other paperwork and evaluating patient/reviewing data Status at Discharge: Cognitive status at discharge: cognitively intact , Behavioral status at discharge: cooperative , Functional status at discharge: uses cane/walker , Overall status at discharge: patient is back to baseline Quality Metrics Clinical Quality Measures [ No reported AMI, CVA or VTE this stay] Coding Level of Care Code Acute Chg FW DC note Diagnoses Syncopal episodes R55 Syncope type: unspecified Diarrhea R19.7 Bilateral carotid artery stenosis I65.23 Atrial fibrillation I48.0 Atrial fibrillation type: paroxysmal History of carotid endarterectomy Z98.890 Iron deficiency anemia D50.9 Hepatic cirrhosis K74.60 Hepatic cirrhosis type: unspecified hepatic cirrhosis Ascites presence: unspecified Acquired hypothyroidism E03.9 Essential hypertension I10
== END 2022-04-21 13:45 | disposition home or self-care (01) | DRG 641 ==
LOC: ER 04:16 → MEDSURG 04:41
PROVIDERS: Admitting Provider Family Medicine; Emergency Provider Emergency Medicine; PCP Nurse Practitioner; Visit Provider Student in an Organized Health Care Education/Training Program
DX: E86.0 Dehydration (principal); I95.9 Hypotension, unspecified; E03.9 Hypothyroidism, unspecified; I10 Essential (primary) hypertension; M10.9 Gout, unspecified; K74.60 Unspecified cirrhosis of liver; M81.0 Age-related osteoporosis without current pathological fracture; Z98.84 Bariatric surgery status; Z87.891 Personal history of nicotine dependence; D50.9 Iron deficiency anemia, unspecified; I48.0 Paroxysmal atrial fibrillation; E78.5 Hyperlipidemia, unspecified; E11.9 Type 2 diabetes mellitus without complications; R19.7 Diarrhea, unspecified; I65.23 Occlusion and stenosis of bilateral carotid arteries; R55 Syncope and collapse; Z79.82 Long term (current) use of aspirin
CPT/HCPCS: 36415; 36416; 70450; 70551; 71045; 72125; 80048; 80053; 81003; 82607; 82746; 82962; 83036; 83540; 83550; 83605; 83735; 83880; 84100; 84443; 84484; 85025; 85378; 86140; 87040; 87081; 87635; 87804; 87880; 93005; 93306; 93880; 93970; 96372; 99285; C9113; J1650; J7030; J8597

== ENCOUNTER → 2022-05-06 09:24 | Outpatient (BNVA) | payer MEDICARE, OTHER, SELFPAY | PROVIDERS: PCP Nurse Practitioner; Visit Provider Thoracic Surgery (Cardiothoracic Vascular Surgery) | DX: I65.21 Occlusion and stenosis of right carotid artery (principal); Z87.891 Personal history of nicotine dependence | CPT/HCPCS: 99203 ==

== ENCOUNTER 2022-05-17 14:32 | Outpatient (CLI) | payer MEDICARE, OTHER, SELFPAY ==
--- NOTE | 2022-05-17 15:00 | CT_ITS ---
WS: [id number] CTA NECK TECHNIQUE: Contrast enhanced CTA of the neck with coronal and sagittal reformatted images and maximum intensity projection (MIP) images. NASCET criteria utilized. CLINICAL INFORMATION: carotid stenosis COMPARISON: Ultrasound April 20, 2022 DLP: 270.[address] scans at [facility] use at least one of these dose optimization techniques: automated e xposure control; mA and/or kV adjustment per patient size (includes targeted exams where dose is matc hed to clinical indication); or iterative reconstruction. FINDINGS: RIGHT: RIGHT common carotid artery is patent. Prior postoperative changes RIGHT carotid endarterectom y. Small pseudoaneurysm at the carotid bulb with ligation clips measuring 5 mm. No significant recurr ent RIGHT ICA stenosis. Less than 50% RIGHT ICA stenosis. RIGHT ECA is patent. ICA is patent to the s kull base. LEFT: LEFT common carotid artery is patent. Moderate calcified atheromatous plaque LEFT carotid bulb extending into the ICA. Less than 50% LEFT ICA stenosis. LEFT ICA is patent to the skull base. RIGHT dominant vertebral artery. Smaller but patent LEFT vertebral artery with mild calcification at the origin.. Proximal basilar artery is patent. Normal vascularity to the DOUGH MIXING MACHINE OPERATOR territory partially vis ualized. Both ICAs are patent at the skull base. Hypoplastic RIGHT A1. Mild cavernous carotid calcifi cation. Proximal [place] otherwise appears normal. Slightly hazy atelectasis in the lung apices. Normal posterior nasopharynx. Normal parapharyngeal sof t tissues. Mild spondylitic changes cervical spine with disc osteophyte complexes at C4-C5 and C5-C6 with mild to moderate central canal stenosis. CT/CT angio neck [id number] IMPRESSION: 1. Prior postoperative changes RIGHT carotid endarterectomy Less than 50% ICA stenosis. 2. Moderate atheromatous plaque LEFT carotid bulb extending into the ICA. Less than 50% LEFT ICA stenosis. 3. RIGHT dominant vertebral artery. Both vertebral arteries are patent to the basilar junction. 4. Hypoplastic A1 segment. Proximal [place] of [place] otherwise appears normal. 5. Moderate spondylitic changes cervical spine C4-C5 and C5-C6 with mild to mo derate central canal stenosis.
[2022-05-17] MEDS: iodixanol 320 mg/mL 100mL Btl IV (15:04)
== END 2022-05-17 14:33 | disposition home or self-care (01) ==
LOC: RAD 14:37
PROVIDERS: PCP Nurse Practitioner; Visit Provider Thoracic Surgery (Cardiothoracic Vascular Surgery)
DX: I65.23 Occlusion and stenosis of bilateral carotid arteries (principal); I65.22 Occlusion and stenosis of left carotid artery
CPT/HCPCS: 70498

== ENCOUNTER 2022-05-25 10:19 | Outpatient (CLI) | payer MEDICARE, OTHER, SELFPAY ==
--- NOTE | 2022-05-25 10:40 | MM_ITS ---
WS: [id number] BILATERAL SCREENING DIGITAL BREAST TOMOSYNTHESIS MAMMOGRAM WITH CAD HISTORY: SCREENING COMPARISON: None available. Bilateral CC and MLO views with tomosynthesis and synthetic mammography submitted. Computer aided det ection analyzed. Breast composition: There are scattered areas of fibroglandular density. No suspicious masses, microc alcifications or architectural distortion. Asymmetry upper-outer quadrant RIGHT breast with no distor tion. Normal asymmetry. MM/[place] [id number] IMPRESSION: BI-RADS: 2-Benign FOLLOW UP: 1 Year Follow-up
== END 2022-05-25 10:20 | disposition home or self-care (01) ==
LOC: RAD 10:20
PROVIDERS: PCP Nurse Practitioner; Visit Provider Nurse Practitioner
DX: Z12.31 Encounter for screening mammogram for malignant neoplasm of breast (principal)
CPT/HCPCS: 77063; 77067

== ENCOUNTER → 2022-07-20 14:22 | Outpatient (BNVA) | payer MEDICARE, OTHER, SELFPAY | PROVIDERS: PCP Nurse Practitioner; Visit Provider Nurse Practitioner | DX: I10 Essential (primary) hypertension (principal) | CPT/HCPCS: 80053; 80061; 84443; 85025 ==

== ENCOUNTER → 2022-08-12 11:20 | Outpatient (BNVA) | payer MEDICARE, OTHER, SELFPAY | PROVIDERS: PCP Nurse Practitioner; Visit Provider Nurse Practitioner | DX: E03.9 Hypothyroidism, unspecified (principal) | CPT/HCPCS: 80053; 84443; 85025 ==

== ENCOUNTER → 2022-10-12 11:14 | Outpatient (BNVA) | payer MEDICARE, OTHER, SELFPAY | PROVIDERS: PCP Nurse Practitioner; Visit Provider Nurse Practitioner | DX: I10 Essential (primary) hypertension (principal); E03.9 Hypothyroidism, unspecified; M81.0 Age-related osteoporosis without current pathological fracture | CPT/HCPCS: 80053; 80061; 82306; 84443; 85025 ==

== ENCOUNTER 2022-10-18 14:49 | Outpatient (CLI) | payer MEDICARE, OTHER, SELFPAY ==
--- NOTE | 2022-10-18 15:00 | USCV_ITS ---
Jose M Fairbanks Age: 82 Gender: F : 1940 Exam Date: 10/18/2022 15:15 Ordering Phys: Martha German Technologist: CHRISTINE [place] [facility] [place]: Stenosis Risk Factors: Previous Vascular Surgery: Right Brachial BP: / Left Brachial BP: / Right Left Velocity (cm/s) Spectral Plaque Velocity (cm/s) Spectral Plaque Syst/Diast Broadening Syst/Diast Broadening 81.60/ 12.10 Prox CCA 120.20/ 17.60 52.90/ 16.50 Mid CCA 77.20 / 11.00 92.60/ 14.30 Distal CCA 75.00 / 20.90 113.60/18.70 Prox ICA 61.40 / 15.50 77.20/ 16.50 Mid ICA 103.40/ 22.20 87.10/ 18.70 Distal ICA 65.80 / 12.80 98.10 ECA 71.70 1.23 ICA/CCA 0.86 Antegrade Vertebral Antegrade 119.6/ 14.50 cm/s 64.10/ 12.80 cm/s 0 Tri Subclavian Tri 112.5 121.3 0 0 CONCLUSIONS Right ICA stenosis <50%. Mild atheromatous plaque right carotid bulb/ICA. Left ICA stenosis <50%. Mild atheromatous plaque left carotid bulb/ICA. Normal antegrade Doppler flow noted in the right vertebral artery. Normal antegrade Doppler flow noted in the right vertebral artery. Azael Leonard MD (Electronically Signed) Final Date: 18 October 2022 17:40 S
== END 2022-10-18 14:50 | disposition home or self-care (01) ==
PROVIDERS: PCP Nurse Practitioner; Visit Provider Nurse Practitioner
DX: I65.23 Occlusion and stenosis of bilateral carotid arteries (principal)
CPT/HCPCS: 93880

== ENCOUNTER → 2023-01-03 10:38 | Outpatient (BNVA) | payer MEDICARE, OTHER, SELFPAY | PROVIDERS: PCP Nurse Practitioner; Visit Provider Nurse Practitioner | DX: E03.9 Hypothyroidism, unspecified (principal); I10 Essential (primary) hypertension; R73.9 Hyperglycemia, unspecified | CPT/HCPCS: 80053; 80061; 83036; 84443; 85025 ==

== ENCOUNTER → 2023-03-28 11:04 | Outpatient (BNVA) | payer MEDICARE, OTHER, SELFPAY | PROVIDERS: PCP Nurse Practitioner; Visit Provider Nurse Practitioner | DX: D50.9 Iron deficiency anemia, unspecified (principal); E03.9 Hypothyroidism, unspecified; I10 Essential (primary) hypertension; E55.9 Vitamin D deficiency, unspecified | CPT/HCPCS: 80053; 80061; 82306; 84443; 85025 ==

== ENCOUNTER 2023-05-06 14:13 | Outpatient (CLI) | payer MEDICARE, OTHER, SELFPAY ==
--- NOTE | 2023-05-06 15:15 | USCV_ITS ---
Jose M Fairbanks Age: 83 Gender: F : 1940 Exam Date: 05/06/2023 14:54 Ordering Phys: Holland Lanier MD (Andy) [email or web address] [place] Technologist: CHI Exam Location[place] [facility] [place] Indication: prior RCEA AND RECHECK ON LT Risk Factors: Unknown Previous Vascular Surgery: R CEA Right Brachial BP: / Left Brachial BP: / Right Left Velocity (cm/s) Spectral Plaque Velocity (cm/s) Spectral Plaque Syst/Diast Broadening Syst/Diast Broadening 91.40/ 17.10 Prox CCA 86.70 / 23.00 99.10/ 22.20 Mid CCA 61.80 / 10.40 97.40/ 14.50 Hetro Distal CCA 54.40 / 13.40 Hetro 140.70/24.70 Hetro Prox ICA 95.70 / 26.80 Hetro 133.30/22.20 Mid ICA 102.90/ 35.00 62.80/ 13.90 Distal ICA 86.50 / 27.80 101.20 Hetro ECA 76.00 Hetro 1.42 ICA/CCA 1.66 Antegrade Vertebral Antegrade 43.40/ 11.50 cm/s 50.10/ 16.70 cm/s Tri Subclavian Tri 150.6 107.3 0 0 FINDINGS Comparison:. 10/18/22 Focal mixed echogenic plaque in the right carotid bifurcaton. Turbulent flow but no significant stenosis. Mild plaque left bifurcation, no stenosis. Antegrade vertebral arteries. CONCLUSIONS Bilateral ICA stenosis less than 50%. Mixed plaque right carotid bifurcation with turbulence, no significant stenosis. Dr. Sharla Quinones DO (Electronically Signed) Final Date: 06 May 2023 16:03 S
== END 2023-05-06 14:14 | disposition home or self-care (01) ==
LOC: RAD 14:19
PROVIDERS: PCP Nurse Practitioner; Visit Provider Thoracic Surgery (Cardiothoracic Vascular Surgery)
DX: I65.23 Occlusion and stenosis of bilateral carotid arteries (principal)
CPT/HCPCS: 93880

== ENCOUNTER → 2023-05-19 10:17 | Outpatient (BNVA) | payer MEDICARE, OTHER, SELFPAY | PROVIDERS: PCP Nurse Practitioner; Visit Provider Thoracic Surgery (Cardiothoracic Vascular Surgery) | DX: I65.21 Occlusion and stenosis of right carotid artery (principal); I10 Essential (primary) hypertension | CPT/HCPCS: 99213 ==

== ENCOUNTER → 2023-06-02 09:57 | Outpatient (BNVA) | payer MEDICARE, OTHER, SELFPAY | PROVIDERS: PCP Nurse Practitioner; Visit Provider Internal Medicine Cardiovascular Disease | DX: I25.119 Atherosclerotic heart disease of native coronary artery with unspecified angina pectoris (principal); K74.60 Unspecified cirrhosis of liver; D64.9 Anemia, unspecified; I12.9 Hypertensive chronic kidney disease with stage 1 through stage 4 chronic kidney disease, or unspecified chronic kidney disease; N18.9 Chronic kidney disease, unspecified; I44.0 Atrioventricular block, first degree | CPT/HCPCS: 99203 ==

== ENCOUNTER 2023-06-02 20:21 | Emergency (ER) | payer MEDICARE, OTHER, SELFPAY ==
[2023-06-02 20:23] VITALS: BP 190/46; PULSE 72; RESP 22; TEMP 36.7; O2SAT 95; BMI 27.3
--- NOTE | 2023-06-02 20:28 | XRR_ITS ---
PROCEDURE INFORMATION: Exam: XR Chest Exam date and time: 06/02/2023 8:38 PM Age: 83 years old Clinical indication: Pain; Chest pressure; Additional info: Cp TECHNIQUE: Imaging protocol: Radiologic exam of the chest. Views: 1 view. COMPARISON: CR XR chest 1V portable [id number] 04/20/2022 3:16 AM FINDINGS: Lungs: Clear, symmetrically inflated lungs. Pleural spaces: No pleural effusion. No pneumothorax. Heart/Mediastinum: Cardiac silhouette is normal in size for technique. Bones/joints: Age appropriate. XR/XR chest 1V portable [id number] IMPRESSION: No acute cardiopulmonary abnormality.
--- NOTE | 2023-06-02 20:28 | ECG_ITS ---
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 Measurements Intervals Sherrill Rate: 71 P: 0 MT: 0 QRS: -14 QRSD: 97 T: 62 QT: 383 QTc: 417 Interpretive Statements SINUS RHYTHM WITH FIRST DEGREE AV BLOCK MINIMAL VOLTAGE CRITERIA FOR LVH, CONSIDER NORMAL VARIANT [MEETS CRITERIA IN ONE OF: R(aVL), S(V1), R(V5), R(V5/V6)+S(V1)] ABNORMAL RHYTHM ECG Compared to ECG 04/20/2022 10:16:18 Supraventricular rhythm now present Sinus rhythm no longer present First degree AV block no longer present Electronically Signed On 06-03-2023 11:28:33 CDT by Maine Dumont M.D. [id number]
[2023-06-02 20:52] LABS: Basophils % 0.3 %; Eosinophils # 0.1 10^3/uL (0.0-0.8); Eosinophils % 0.7 %; Hematocrit 27.7 % (37.0-47.0); Hemoglobin 8.2 g/dL (11.5-15.3); Lymphocytes # 1.8 10^3/uL (0.8-4.8); Lymphocytes % 20.3 %; Mean Corpuscular HGB Conc 29.6 g/dL (30.0-36.0); Mean Corpuscular Hemoglobin 25.4 pg (28.0-34.0); Mean Corpuscular Volume 85.8 fl (81-99); Mean Platelet Volume 9.2 fL (7.4-10.4); Monocytes # 0.7 10^3/uL (0.2-0.9); Monocytes % 7.6 %; Neutrophils # 6.15 10^3/uL (1.8-7.7); Neutrophils % 70.5 %; Nucleated Red Blood Cells % 0 %; Platelet Count 390 10^3/cmm (130-400); Red Blood Count 3.23 10^6/uL (4.1-5.3); Red Cell Distribution Width 15.2 % (12.1-15.1); White Blood Count 8.7 10^3/uL (4.0-10.0)
[2023-06-02 21:04] LABS: Troponin(5th) Baseline 16 ng/L (0-10)
[2023-06-02 21:06] LABS: Alanine Aminotransferase 13 U/L (0-33); Alkaline Phosphatase 95 U/L (35-105); Anion Gap 16.8 (5-19); Aspartate Amino Transferase 21 U/L (0-32); Blood Urea Nitrogen 23 mg/dL (8-23); Calcium 8.8 mg/dL (8.5-10.5); Carbon Dioxide 23 mmol/L (22-29); Chloride 103 mmol/L (98-107); Globulin 3.3 g/dL (1.3-4.6); Glucose 135 mg/dL (65-115); Osmolality Calculated 292 mOsm/kg (285-295); Potassium 4.8 mmol/L (3.5-5.1); Sodium 138 mmol/L (136-145); Total Bilirubin 0.2 mg/dL (0.15-1.2); Total Protein 7.3 g/dL (6.6-8.7)
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
--- NOTE | 2023-06-02 22:28 | ECG_ITS ---
[facility] Test Date: 2023-06-02 Pat Name: Jose M Fairbanks Department: Room: Gender: Female Operator Electronic Warfare: : 1940 Requested By: Cara Klein Order Number: [id number] Lidya MD: Maine Dumont M.D. Measurements Intervals [place] Rate: 62 P: 0 PA: 325 QRS: -12 QRSD: 93 T: 52 QT: 424 QTc: 432 Interpretive Statements SINUS RHYTHM WITH FIRST DEGREE AV BLOCK Compared to ECG 04/20/2022 10:16:18 No significant changes Electronically Signed On 06-03-2023 8:11:45 CDT by Maine Dumont M.D. [id number]
[2023-06-02 22:39] LABS: Troponin 5 2HR 15.84 ng/L (0-10)
[2023-06-02 22:40] LABS: Troponin 5 2HR Delta -0.16 ABS# (0-10)
[2023-06-02 23:33] VITALS: BP 150/57; PULSE 67; RESP 14; O2SAT 97
== END 2023-06-02 23:35 | disposition home or self-care (01) ==
PROVIDERS: Emergency Provider Emergency Medicine; PCP Nurse Practitioner
DX: R07.9 Chest pain, unspecified (principal)
CPT/HCPCS: 36415; 71045; 80053; 84484; 85025; 93005; 99285

== ENCOUNTER 2023-06-10 07:53 | Outpatient (CLI) | payer MEDICARE, OTHER, SELFPAY ==
--- NOTE | 2023-06-10 08:30 | US_ITS ---
WS: [id number] RIGHT UPPER QUADRANT ULTRASOUND HISTORY: K74.60 - Unspecified cirrhosis of liver COMPARISON: 04/13/2022 Liver: 16.2 cm in length. Normal size liver. Cirrhotic margins of the liver with coarse echotexture t hroughout. Again noted is a cyst in the LEFT lobe measuring 1.6 x 1.6 cm. Portal Vein: Normal hepatopetal flow with monophasic waveform. Gallbladder: Status post cholecystectomy. CBD: 0.3 cm Pancreas: Portions of the head and tail are obscured. The body is negative. Right kidney: 8.5 cm in length. Atrophic kidney with increased echogenicity. No hydronephrosis. Simil ar to the prior study. Aorta and IVC: Unremarkable abdominal aorta and IVC. No ascites. US/US liver [id number] IMPRESSION: 1. Prior cholecystectomy. 2. Stable hepatic cirrhosis with cysts. No bile duct dilatation and no mass. 3. Atrophic RIGHT kidney with moderate chronic medical renal disease. No obstr uction. Similar to the study from 04/13/2022.
== END 2023-06-10 07:54 | disposition home or self-care (01) ==
LOC: RAD 07:56
PROVIDERS: PCP Nurse Practitioner; Visit Provider Nurse Practitioner
DX: K74.60 Unspecified cirrhosis of liver (principal); R73.9 Hyperglycemia, unspecified
CPT/HCPCS: 76705; 80053; 83036; 83550; 85025

== ENCOUNTER → 2023-06-20 10:42 | Outpatient (BNVA) | payer MEDICARE, OTHER, SELFPAY | PROVIDERS: PCP Nurse Practitioner; Visit Provider Internal Medicine Cardiovascular Disease | DX: I20.9 Angina pectoris, unspecified (principal); R07.9 Chest pain, unspecified | CPT/HCPCS: 80048; 85025 ==

== ENCOUNTER 2023-06-27 05:44 | Outpatient (CLI) | payer MEDICARE, OTHER, SELFPAY ==
[2023-06-27] VITALS (23 sets, daily range): BP systolic 145–181; BP diastolic 52–75; PULSE 62–77; RESP 13–25; TEMP 36.9; O2SAT 93–98; BMI 27.3
--- NOTE | 2023-06-27 06:00 | XACV_ITS ---
Exam Room: 2 Ht: 163 cm Wt: 72 kg BSA: 1.82 m2 Gender: Female : 1940 Any Known Allergies: Other Exam Priority: Routine Procedure(s): Procedure Description: Diagnostic procedure Procedure Description: Coronary Angiography Ann-Marie MENDOZA; Diagnostic Cath Status: Elective Diagnostic Findings * Patient with typical angina symptoms elucidated by Dr. Lanier during an office visit. She related fairly classic exertional angina relieved with nitroglycerin. I recommended coronary angiography. * Coronary angiography reveals right coronary artery dominance. The left main coronary artery is normal and bifurcates into the LAD and circumflex. Circumflex is normal. There is a minor luminal irregularity of the LAD. There is a 10% eccentric stenosis in the proximal to mid LAD. Otherwise the LAD is free of disease. The right coronary artery is a very large dominant vessel and ends distally as the right posterior descending artery and the posterior left ventricular branch. The right coronary artery is normal. * Ventriculography is not performed due to the patient's underlying renal insufficiency. Conclusions 1. Nonobstructive coronary artery disease. Recommendations * Medical treatment. Diagnostic RX Recommendation: none Anticoagulation: Heparin Pressures Phase:Rest AO : 123 / 72 ( 97 ) @ 8:13:00 AM Clinical Evaluation EBL: 5mL-10mL Procedural Details Procedure Consent Obtained. Admit Source: Out Patient. Pre-Procedure Time Out. Identified patient by full name and date of as verbalized by the patient/guarantor. Does the consent match the physician's order: Yes. Accurate & Complete Informed Consent: Yes. Inpatient/Outpatient History & Physical on Chart: Yes. If H&P is completed, is and addenduem needed: No; If yes, is the addendum complete: N/A. Visualize and Verify Site with Patient/Guarantor: N/A. Relevant Radiology Images available: No. The risks, benefits, and alternatives of sedation and/or procedure were discussed by physician. The patient agrees to continue. Procedure started. [facility] Clinical Fraility Score: 3: Managing Well. 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 Chest Pain Symptom Assessment: Typical Angina Symptoms. Correct patient, site and procedure confirmed by cath team. Current diagnosis: Unstable angina. PERRLA. Strong, equal hand city surveyor bilaterally. Lungs clear x 5 lobes. IV Site on Arrival: 20 gauge in the left anticubital. IV Fluids: 0.9% NaCl at 75ml/hr. 0 mL infused prior to laboratory tester. Pre Procedural Pulses: bilateral radial was 3+. Pre Procedural Pulses: right dorsalis pedis was Doppled. Pre Procedural Pulses: left dorsalis pedis was 1+. Pre Procedural Pulses: right posterior tibial was 3+. Pre Procedural Pulses: left posterior tibial was 1+. Oxygen started at 2liters/min via nasal canula. right radial was prepped with chloroprep then draped in the usual sterile fashion. right groin was prepped with chloroprep then draped in the usual sterile fashion. Physician notified. Baseline sample Acquired. HR: 76 BPM. Physician arrived. Physician scrubbed in. Immediate Pre-Procedure Time Out. Correct Patient: Yes; Correct Procedure: Yes; Correct Site: Yes; Correct Patient Position: Yes; Correct Supplies: Yes; Dried Flammable Prep: Yes; Blood Products Available: N/A;. Lidocaine 1% infiltrated to the right radial. Arterial access obtained. A 5 american TIG catheter in over wire. Multiple views taken of left coronary artery. Catheter redirected to the RCA. Catheter removed over the exchange wire. A 5 american JR4 catheter in over wire. Wire out. Multiple views taken of right coronary artery. Catheter out. Physician scrubbed out. A TR Band was successful obtaining hemostatsis at the Right Radial artery insertion site. Post Procedure: Pulses reassessed and unchanged. PERRLA. Strong, equal hand city surveyor bilaterally. No VTE prophylaxis required. Medication's Wasted: Lidocaine 1% = 2 mL. Medication's Wasted: Nitro = 49.8 mg. Medication's Wasted: Heparin = 1000 units. Medication's Wasted: Other = Fentanyl 25 mcg. Total IV fluids: 35 mL. Post-op diagnosis: Non-obstructive CAD. Complications: None. Estimated blood loss: 5mL-10mL. Responsiveness - Normal response to verbal stimuli; alert and oriented, PERRLA. Airway - Unaffected, no intervention required; spontaneous ventilation. Circulation: W/N/L, pulses unchanged. Nausea/Vomiting: No. Procedure completed. Patient transferred by wheelchair to CPRU. Vital chart was stopped. Access Site Site: Right Radial artery Sheath Size: 6 Fr Hemostasis Method: TR Band Hemostasis Success: Successful Procedure Medications Start: 6:59 AM Stop: 6:59 AM Medication: Versed Amount: 1 mg Route: I.V. Start: 6:59 AM Stop: 6:59 AM Medication: Fentanyl Amount: 50 mcg Route: I.V. Start: 7:09 AM Stop: 7:09 AM Medication: Fentanyl Amount: 25 mcg Route: I.V. Start: 7:11 AM Stop: 7:11 AM Medication: Nitrogylcerin Amount: 200 mcg Route: I.A. Start: 7:11 AM Stop: 7:11 AM Medication: Versed Amount: 1 mg Route: I.V. Start: 7:13 AM Stop: 7:13 AM Medication: Heparin Amount: 5000 units Route: I.V. I, the attending physician, have reviewed and verified all procedure medications. Yes, all medications given per verbal order History/Risk Factors Hypertension: Yes Dyslipidemia: No Peripheral Arterial Disease (PAD): No Myocardial Infarction (ID): No Obesity: No Renal Disease: No Prior Interventions PCI: No CABG: No Valve Surgery: No Report Signatures Finalized by Dr. Nilay Jacobsen MD on 06/27/2023 07:32 AM
[2023-06-27] MEDS: diphenhydrAMINE 50 mg Capsule PO (06:40)
--- NOTE | 2023-06-27 06:56 | W.PM.OPSUD ---
Surgery/Procedure H&P Update DATE OF PROCEDURE: June 27, 2023 DATE H&P PERFORMED: 06/02/23 CHANGES TO PREVIOUS DOCUMENTATION: None PREOP DIAGNOSIS: angina pectoris PRIMARY INDICATION FOR PROCEDURE: angina PLANNED PROCEDURE: Operation Date: 06/27/23 07:00 Proposed Procedures p [facility] [address], I20.9(Left) - Nilay Jacobsen MD
--- NOTE | 2023-06-27 08:33 | P.DS_ITS ---
Discharge Providers Date of Admission: June 27, 2023 Date of Discharge: June 27, 2023 Attending Provider at Admission: cathy Attending Provider at Discharge: Nilay Jacobsen MD Primary Care Provider: CHOCO Irizarry Reason for Visit Reason for Visit: I20.9 Brief History: Patient was seen in the office by Dr. Lanier initially for follow-up of carotid disease. He he elicited a history of classic angina and scheduled her to see me. I elicited the same history and decided because the history was so classic for angina that she should move straight to angiography. Hospital Course Hospital Course Much to my surprise, the angiogram was essentially normal. She had minor eccentric plaque in the LAD but otherwise her arteries were normal. No left ventriculogram was done due to a history of mild renal insufficiency. The procedure was done from the right radial artery. No complications ensued. She should not need cardiology follow-up after being seen in a week for radial artery check and renal panel. Physical Exam Narrative: GENERAL: In general she looks well HEENT: Exam within normal limits. NECK: Supple without jugular vein distention. The carotid upstroke is normal without bruits. BACK: Exam normal. LUNGS: Clear. HEART: Regular rate and rhythm. ABDOMEN: Benign without organomegaly or tenderness. EXTREMITIES: No edema. At the time of discharge the right radial artery entry site area was flat, dry without bleeding, hematoma or other vascular anomaly. There is a good pulse. NEUROLOGIC: Exam normal. SKIN: Unremarkable. Discharge Data Studies Completed and Pending Completed Studies During Hospitalization Category Date Time Status DATA SOLUTIONS ARCHITECT request for service Routine Exams 06/27/23 06:00 Completed Procedures Performed Coronary angiography Vitals Last Vital Signs Temp 98.4 F 06/27/23 06:43 Pulse 72 06/27/23 06:43 Resp 18 06/27/23 06:43 BP 180/74 06/27/23 06:43 Pulse Ox 96 06/27/23 06:43 O2 Del Method Room Air 06/27/23 06:43 Discharge Plan Discharge Patient Disposition: Home Prescriptions: Continued cholecalciferol (vitamin D3) 125 mcg (5,000 unit) capsule 125 mcg PO DAILY milk thistle 175 mg tablet 175 mg PO BID Rx Instructions: give with meal/snack amlodipine 2.5 mg tablet 2.5 mg PO DAILY Qty: 30 2RF Hold Instructions: Home Medication placed on hold at Doctor's office captopril 50 mg tablet 50 mg PO TID 30 Days Qty: 90 2RF hydrochlorothiazide 12.5 mg tablet 12.5 mg PO QAM Qty: 30 2RF Hold Instructions: Resume on 05/05/22. ibandronate [Boniva] 150 mg tablet 150 mg PO .month Qty: 1 2RF levothyroxine 100 mcg tablet 100 mcg PO DAILY Qty: 30 2RF metoprolol tartrate 100 mg tablet 100 mg PO BID 30 Days Qty: 60 2RF Rx Instructions: dose increase goal heart rate 60-80 in minute nitroglycerin 0.4 mg tablet, sublingual 0.4 mg SUBLINGUAL Q5M PRN (Reason: chest pain) Qty: 25 0RF Rx Instructions: use every 5 minutes for 3 doses if pain not resolved go to ER. ascorbic acid (vitamin C) [Vitamin C] 1,000 mg Tablet 500 mg PO BID grape seed extract [Grape Seed] 50 mg Capsule 100 mg PO DAILY Discharge Orders: Discharge Order (Routine); Ordered 06/27/23 Ordered By: Nilay Jacobsen Referrals: Rochelle Holloway FNP [Nurse Practitioner] - 7-10 days (Check right radial artery entry site and chemistry panel.) Diet: Regular Activity: Increase activity as tolerated and Limit activity as instructed Activity Restrictions/Additional Instructions: No lifting over 5 pounds with the right arm for 2 days. Call for swelling, pain bleeding in the right arm. Discharge Attestations Time Spent in Discharge Care*: greater than 30 min Status at Discharge: Cognitive status at discharge: cognitively intact , Behavioral status at discharge: cooperative , Quality Metrics Clinical Quality Measures [ No reported AMI, CVA or VTE this stay] Coding Level of Care Code 90847 Total time (in minutes) for Discharge: 38 Diagnoses
--- NOTE | 2023-06-27 09:08 | PC.NURSE ---
around 730, cpru nurse received pt from test lab technician post diagnostic c. pt alert and oriented but very sleepy. pt complains of no pain. tr band on right wrist with radial pulse palpable. no bruising or hematoma noted. pt and family educated on restrictions of right wrist and both acknowledged understanding. nurse to educate throughout recovery as well. pt placed on vital monitor and will be monitored per protocol.
--- NOTE | 2023-06-27 10:28 | PC.NURSE ---
around 945 pt used called light to inform us her site was bleeding. air was replaced and bleeding stopped. slight hematoma noted and marked.
== END 2023-06-27 13:07 | disposition home or self-care (01) ==
PROVIDERS: PCP Nurse Practitioner; Visit Provider Internal Medicine Cardiovascular Disease
DX: I25.119 Atherosclerotic heart disease of native coronary artery with unspecified angina pectoris (principal); I12.9 Hypertensive chronic kidney disease with stage 1 through stage 4 chronic kidney disease, or unspecified chronic kidney disease; N18.9 Chronic kidney disease, unspecified
CPT/HCPCS: 36415; 93454; 96361; 96365; 99152; 99153; C1769; C1887; C1894; J1644; J2250; J3010; J3490; J7030; Q0163; Q9967

== ENCOUNTER → 2023-07-05 08:58 | Outpatient (BNVA) | payer MEDICARE, OTHER, SELFPAY | PROVIDERS: PCP Nurse Practitioner; Visit Provider Nurse Practitioner Family | DX: Z09 Encounter for follow-up examination after completed treatment for conditions other than malignant neoplasm (principal); I10 Essential (primary) hypertension; I20.9 Angina pectoris, unspecified | CPT/HCPCS: 99214 ==

== ENCOUNTER → 2023-09-12 10:36 | Outpatient (BNVA) | payer MEDICARE, OTHER, SELFPAY | PROVIDERS: PCP Nurse Practitioner; Visit Provider Nurse Practitioner | DX: R73.9 Hyperglycemia, unspecified (principal); E03.9 Hypothyroidism, unspecified; I10 Essential (primary) hypertension; D50.9 Iron deficiency anemia, unspecified; M81.0 Age-related osteoporosis without current pathological fracture | CPT/HCPCS: 80053; 80061; 82306; 82607; 83036; 84443; 85025 ==

== ENCOUNTER → 2023-09-27 09:24 | Outpatient (BNVA) | payer MEDICARE, OTHER, SELFPAY | PROVIDERS: PCP Nurse Practitioner; Visit Provider Nurse Practitioner | DX: E61.1 Iron deficiency (principal); D64.9 Anemia, unspecified | CPT/HCPCS: 80053; 83550; 85025 ==

== ENCOUNTER → 2023-10-05 09:57 | Outpatient (BNVA) | payer MEDICARE, OTHER, SELFPAY | PROVIDERS: PCP Nurse Practitioner; Visit Provider Nurse Practitioner | DX: D50.9 Iron deficiency anemia, unspecified (principal); D64.9 Anemia, unspecified | CPT/HCPCS: 83540 ==

== ENCOUNTER 2023-11-01 10:52 | Outpatient (CLI) | payer MEDICARE, OTHER, SELFPAY ==
--- NOTE | 2023-11-01 11:00 | MM_ITS ---
WS: [id number] VIEWS: MLO and CC views both breasts. 3D digital tomosynthesis is also included in this exam. Comparison made with prior exam of 05/25/2022.. Findings: There was no sign of mass, architectural distortion or suspicious calcification in either breast. The re are scattered areas of fibroglandular density Impression: MM/[place] [id number] BI-RADS: 2-Benign finding. FOLLOW-UP: 1 Year Follow-up This mammogram was also analyzed by the Computer Aided Detection System R2 Imag e Field Identification Specialist.
== END 2023-11-01 10:53 | disposition home or self-care (01) ==
LOC: MOBLMAM 11:01
PROVIDERS: PCP Nurse Practitioner; Visit Provider Nurse Practitioner
DX: Z12.31 Encounter for screening mammogram for malignant neoplasm of breast (principal)
CPT/HCPCS: 77063; 77067

== ENCOUNTER → 2023-11-28 10:14 | Outpatient (BNVA) | payer MEDICARE, OTHER, SELFPAY | PROVIDERS: PCP Nurse Practitioner; Visit Provider Nurse Practitioner | DX: D64.9 Anemia, unspecified (principal); N18.9 Chronic kidney disease, unspecified; I10 Essential (primary) hypertension; E03.9 Hypothyroidism, unspecified; D50.9 Iron deficiency anemia, unspecified | CPT/HCPCS: 80053; 83540; 85025 ==

== ENCOUNTER 2024-01-27 09:40 | Outpatient (CLI) | payer MEDICARE, OTHER, SELFPAY ==
[2024-01-27 10:21] LABS: Ammonia 12 umol/L (11-51)
[2024-01-27 10:27] LABS: Alanine Aminotransferase 13 U/L (0-33); Albumin Level 3.8 g/dL (3.5-5.2); Alkaline Phosphatase 78 U/L (35-105); Anion Gap 16.3 (5-19); Aspartate Amino Transferase 24 U/L (0-32); Blood Urea Nitrogen 27 mg/dL (8-23); Calcium 8.6 mg/dL (8.5-10.5); Carbon Dioxide 24 mmol/L (22-29); Chloride 103 mmol/L (98-107); Glucose 132 mg/dL (65-115); Osmolality Calculated 295 mOsm/kg (285-295); Potassium 4.3 mmol/L (3.5-5.1); Sodium 139 mmol/L (136-145); Total Bilirubin 0.4 mg/dL (0.15-1.2); Total Protein 7.8 g/dL (6.6-8.7)
[2024-01-27 10:31] LABS: Chol HDL Ratio 3.26 mg/dL (0.0-4.40); Cholesterol 173 mg/dL (0-200); HDL Cholesterol 53 mg/dL (60-100); LDL Cholesterol Calculated 103 mg/dL (50-129); LDL HDL Ratio 1.94 RATIO (0.00-3.22); Triglycerides 87 mg/dL (0-150)
== END 2024-01-27 09:41 | disposition home or self-care (01) ==
LOC: LAB 09:44
PROVIDERS: PCP Nurse Practitioner; Visit Provider Nurse Practitioner
DX: I10 Essential (primary) hypertension (principal); K74.60 Unspecified cirrhosis of liver; D64.9 Anemia, unspecified
CPT/HCPCS: 36415; 80053; 80061; 82140

== ENCOUNTER 2024-01-30 03:39 | Emergency (ER) | payer MEDICARE, OTHER, SELFPAY ==
--- NOTE | 2024-01-30 03:41 | ECG_ITS ---
[facility] Test Date: 2024-01-30 Pat Name: Jose M Fairbanks Department: Room: Gender: Female Chip Bin Operator: : 1940 Requested By: Cara Klein Order Number: [id number] Reading MD: Nilay Jacobsen M.D. Measurements Intervals [place] Rate: 93 P: 237 [place]: 282 QRS: -27 QRSD: 86 T: 64 QT: 369 QTc: 460 Interpretive Statements SINUS RHYTHM WITH FIRST DEGREE AV BLOCK BORDERLINE LEFT AXIS DEVIATION [QRS AXIS < -20] Compared to ECG 06/02/2023 22:28:23 No significant changes Electronically Signed On 01-30-2024 14:19:39 CDT by Nilay Jacobsen M.D. [id number]
--- NOTE | 2024-01-30 03:41 | XRR_ITS ---
PROCEDURE INFORMATION: Exam: XR Chest Exam date and time: 01/30/2024 3:45 AM Age: 83 years old Clinical indication: Chest pressure; Prior surgery; Surgery date: 6+ months; Surgery type: Gastric bypass. Gb; Patient HX: C/O chest pain; Additional info: Cp TECHNIQUE: Imaging protocol: Radiologic exam of the chest. Views: 1 view. COMPARISON: CR XR chest 1V portable [id number] 06/02/2023 8:38 PM FINDINGS: Lungs: Unremarkable. No consolidation. Pleural spaces: Unremarkable. No pleural effusion. No pneumothorax. Heart/Mediastinum: Unremarkable. No cardiomegaly. Bones/joints: Unremarkable. XR/XR chest 1V portable [id number] IMPRESSION: No acute findings.
[2024-01-30 03:43] VITALS: BP 171/70; PULSE 95; RESP 18; TEMP 37; O2SAT 98; BMI 27.4
--- NOTE | 2024-01-30 03:48 | W.ED.CHESTPA ---
Documented by User: Cara Klein MD 01/30/24 03:50 HPI - Chest Pain General: Chief Complaint: Chest Pain Stated Complaint: CP Time Seen by Provider: 01/30/24 03:41 Source: patient and EMS Mode of arrival: EMS Limitations: no limitations History of Present Illness: 83-year-old female states she has been having chest pain for over a year now she states that this morning it 2 AM start having a very sharp pain in the left side of her chest that is worse with movement and palpation she denies any shortness of breath she denies any nausea or vomiting she denies any diaphoresis. Associated symptoms: Deny abdominal pain, dyspnea, fever(s), nausea or vomiting Review of Systems Const: Denies: fever(s), chills, body aches or change in appetite ENMT: Denies: throat pain or dental pain Card: Reports: chest pain Resp: Denies: dyspnea GI: Denies: abdominal pain, nausea, vomiting or diarrhea Musc: Denies: neck pain or back pain Skin/Breast: Denies: rash Neuro: Denies: headache(s) PFSH ED PFSH: Medical History Angina pectoris Post-menopausal osteoporosis Bilateral carotid artery stenosis Atrial fibrillation Iron deficiency anemia Gastric reflux Tachycardia Oral ulceration Gout, unspecified Migraine Hepatic cirrhosis Acquired hypothyroidism Essential hypertension Surgical History History of cataract extraction History of carpal tunnel release History of gastric bypass Hx of section 3 times Hx of cholecystectomy History of carotid endarterectomy Family History Other Cancer Diabetes Hypertension Social History Smoking and tobacco/nicotine status: never used tobacco/nicotine Second hand smoke exposure: No Alcohol intake: never Substance/Drug Use: never Adopted: No Caregiver/support person: No Lives independently: Yes Household members: spouse Housing: House Marital status: Number of children: 3 service: No Current occupational status: retired Do you think of yourself as: Straight/Heterosexual Current gender identity: Female Physical Exam Const: COMMON NORMALS: no acute distress, patient oriented x3 and healthy appearing HENMT: COMMON NORMALS: normocephalic and atraumatic HEAD & SCALP: normocephalic and atraumatic Eye: COMMON NORMALS: Equal, round and reactive pupils present and EOMs intact bilaterally PUPIL: Yes Equal, round and reactive pupils present Neck/C-Spine: COMMON NORMALS: full ROM and supple Chest: COMMONS NORMALS: normal inspection of the chest OTHER: point tender over left chest Resp: COMMON NORMALS: normal respiratory effort, No retractions, No use of accessory muscles and clear to auscultation bilaterally AUSCULTATION: clear to auscultation bilaterally Cardio: COMMON NORMALS: regular rate, regular rhythm and No murmurs present (Cardio) RATE: regular rate RHYTHM: regular rhythm GI: COMMON NORMALS: Normal to inspection, nondistended, normoactive bowel sounds present, Soft to palpation, non-tender and no masses PALPATION: Yes Soft to palpation Extremity: COMMON NORMALS: normal to inspection and full ROM Neuro: COMMON NORMALS: patient oriented x3, moves all extremities and no focal motor deficits Psych: COMMON NORMALS: mental status grossly normal, Normal thought process present and cooperative THOUGHT PROCESS: Normal thought process present Skin: COMMON NORMALS: no rashes or lesions noted and no wounds GENERAL SKIN EXAM: no rashes or lesions noted Course Vital Signs: Vital signs: Vital Signs Temperature 98.6 F 01/30/24 03:43 Pulse Rate 77 01/30/24 07:00 Respiratory Rate 15 01/30/24 06:00 Blood Pressure 137/56 01/30/24 07:00 Pulse Oximetry 97 01/30/24 07:00 Oxygen Delivery Me thod Nasal Cannula 01/30/24 04:11 MDM - Chest Pain Medical Records I reviewed the patient's medical records. Lab Data I reviewed the patient's lab results. 01/30/24 03:53 01/30/24 03:53 Radiology Impressions Chest X-Ray 01/30/24 03:41 IMPRESSION: No acute findings. Laboratory Results WBC 8.38 10^3/uL (3.29-11.43) 01/30/24 03:53 RBC 3.47 10^6/uL (3.85-5.65) L 01/30/24 03:53 Hgb 9.30 g/dL (11.27-16.99) L 01/30/24 03:53 Hct 30.9 % (36-47) L 01/30/24 03:53 MCV 89.0 fl (85-98) 01/30/24 03:53 MCH 26.8 pg (27-33) L 01/30/24 03:53 MCHC 30.1 g/dL (30-55) 01/30/24 03:53 RDW 15.4 % (12.1-15.1) H 01/30/24 03:53 Plt Count 307 10^3/cmm (157-399) 01/30/24 03:53 MPV 10.0 fL (7.4-10.4) 01/30/24 03:53 Neut % (Auto) 71.4 % 01/30/24 03:53 Lymph % (Auto) 19.6 % 01/30/24 03:53 [place] % (Auto) 7.2 % 01/30/24 03:53 Eos % (Auto) 1.2 % 01/30/24 03:53 Baso % (Auto) 0.2 % 01/30/24 03:53 Neut # (Auto) 5.99 10^3/uL (1.8-7.7) 01/30/24 03:53 Lymph # (Auto) 1.6 10^3/uL (0.8-4.8) 01/30/24 03:53 [place] # (Auto) 0.6 10^3/uL (0.2-0.9) 01/30/24 03:53 Eos # (Auto) 0.1 10^3/uL (0.0-0.8) 01/30/24 03:53 Baso # (Auto) 0.0 10^3/uL (0.0-0.1) 01/30/24 03:53 Nucleated RBC % (auto) 0 % 01/30/24 03:53 Nucleated RBCs # 0.0 /100WBC 01/30/24 03:53 PT 12.60 SECONDS (12.1-14.9) 01/30/24 03:53 INR 0.92 (0.8-1.2) 01/30/24 03:53 Sodium 139 mmol/L (136-145) 01/30/24 03:53 Potassium 4.4 mmol/L (3.5-5.1) 01/30/24 03:53 Chloride 103 mmol/L (98-107) 01/30/24 03:53 Carbon Dioxide 24 mmol/L (22-29) 01/30/24 03:53 Anion Gap 16.4 (5-19) 01/30/24 03:53 BUN 24 mg/dL (8-23) H 01/30/24 03:53 Creatinine 1.4 mg/dL (0.5-0.9) H 01/30/24 03:53 GFR Calculation Not Reportable 01/30/24 03:53 Glucose 125 mg/dL (65-115) H 01/30/24 03:53 Calculated Osmolality 294 mOsm/kg (285-295) 01/30/24 03:53 Calcium 8.8 mg/dL (8.5-10.5) 01/30/24 03:53 Total Bilirubin 0.3 mg/dL (0.15-1.2) 01/30/24 03:53 AST 24 U/L (0-32) 01/30/24 03:53 ALT 13 U/L (0-33) 01/30/24 03:53 Alkaline Phosphatase 78 U/L (35-105) 01/30/24 03:53 Troponin T Baseline 19 ng/L (0-10) H 01/30/24 03:53 Troponin T 120 Minute 19.29 ng/L (0-10) H 01/30/24 05:50 Delta Troponin T 0.29 ABS# (0-10) 01/30/24 05:50 Total Protein 7.2 g/dL (6.6-8.7) 01/30/24 03:53 Albumin 3.6 g/dL (3.5-5.2) 01/30/24 03:53 Globulin 3.6 g/dL (1.3-4.6) 01/30/24 03:53 All radiology interpretation(s) finalized by discharge EKG Data EKG 1: I personally reviewed and interpreted this EKG as follows: EKG interpretation date: 01/30/24 EKG interpretation time: 02:44 Interpretation: nsr hr [address] or t wave abnormalities qrs 86 qtc 420 Discharge Plan Discharge Patient Disposition: Home Clinical Impression: Atypical chest pain Condition: Stable Prescriptions: New Protonix 40 mg tablet,delayed release (DR/EC) 40 mg PO DAILY Qty: 30 0RF No Action cholecalciferol (vitamin D3) 125 mcg (5,000 unit) capsule 125 mcg PO DAILY milk thistle 175 mg tablet 175 mg PO BID Rx Instructions: give with meal/snack amlodipine 2.5 mg tablet 2.5 mg PO DAILY Qty: 30 2RF Hold Instructions: Home Medication placed on hold at Doctor's office captopril 50 mg tablet 50 mg PO TID 30 Days Qty: 90 2RF hydrochlorothiazide 12.5 mg tablet 12.5 mg PO QAM Qty: 30 2RF Hold Instructions: Resume on 05/05/22. ferrous gluconate 324 mg (38 mg iron) tablet 324 mg PO DAILY Qty: 30 2RF levothyroxine 100 mcg tablet 100 mcg PO DAILY Qty: 30 2RF metoprolol tartrate 100 mg tablet 100 mg PO BID 30 Days Qty: 60 2RF Rx Instructions: dose increase goal heart rate 60-80 in minute nitroglycerin 0.4 mg tablet, sublingual 0.4 mg SUBLINGUAL Q5M PRN (Reason: chest pain) Qty: 25 6RF Rx Instructions: use every 5 minutes for 3 doses calcitonin (salmon) 200 unit/actuation spray,non-aerosol 1 spray intranasal (ALT) DAILY Qty: 3.7 2RF ascorbic acid (vitamin C) [Vitamin C] 1,000 mg Tablet 500 mg PO BID grape seed extract [Grape Seed] 50 mg Capsule 100 mg PO DAILY Discharge Orders: Discharge ED (Routine); Ordered 01/30/24 Ordered By: Serge Langley Referrals: Martha German, [facility] CHLOR[facility] OPERATOR-C [Primary Care Provider] - Discharge Diet: Usual diet Discharge Activity: Increase activity as tolerated Patient Instructions: Opioid Safety, Pain Management Activity Restrictions/Additional Instructions: Thank you for choosing [facility] for your healthcare needs today. Please realize this is an emergency room and that we are providing you with a medical screening exam and this may not be complete and all inclusive of all the testing and or work up that you may need to determine your ailment or severity of your illness. It is very important that you follow up as instructed or that you return to the Emergency Department should you have concerns or if your condition changes or worsens in any way. You are seen today for chest discomfort. Your EKG did not show any acute ST changes. Your cardiac enzymes were negative. In reviewing your chart it was noted that you had a coronary angiogram in June 2023 that did not show any significant coronary artery disease Recommend you follow-up with your primary care doctor regarding other potential causes for chest pain. In the meantime we will also recommend that you start Protonix 40 mg daily Coding Level of Care Code ED Refurbish Technician for Chg Fwd Documented by User: Serge Langley DO 01/30/24 07:21 HPI - Chest Pain General: Chief Complaint: Chest Pain Stated Complaint: CP Time Seen by Provider: 01/30/24 03:41 PFSH ED PFSH: Medical History Angina pectoris Post-menopausal osteoporosis Bilateral carotid artery stenosis Atrial fibrillation Iron deficiency anemia Gastric reflux Tachycardia Oral ulceration Gout, unspecified Migraine Hepatic cirrhosis Acquired hypothyroidism Essential hypertension Surgical History History of cataract extraction History of carpal tunnel release History of gastric bypass Hx of section 3 times Hx of cholecystectomy History of carotid endarterectomy Family History Other Cancer Diabetes Hypertension Social History Smoking and tobacco/nicotine status: never used tobacco/nicotine Second hand smoke exposure: No Alcohol intake: never Substance/Drug Use: never Adopted: No Caregiver/support person: No Lives independently: Yes Household members: spouse Housing: House Marital status: Number of children: 3 service: No Current occupational status: retired Do you think of yourself as: Straight/Heterosexual Current gender identity: Female Course Vital Signs: Vital signs: Vital Signs Temperature 98.6 F 01/30/24 03:43 Pulse Rate 77 01/30/24 07:00 Respiratory Rate 15 01/30/24 06:00 Blood Pressure 137/56 01/30/24 07:00 Pulse Oximetry 97 01/30/24 07:00 Oxygen Delivery Me thod Nasal Cannula 01/30/24 04:11 MDM - Chest Pain Medical Decision Making 83-year-old female care assumed at change of shift. Her cardiac enzymes are negative EKGs reviewed did not show any acute ST changes. June 2023 patient had an angiography which was unremarkable showed very mild irregular disease less than 10% the remainder of her coronaries were normal. She not having any chest pain at this time. She does relate having some difficulty swallowing at times and some heartburn will start her on Protonix however follow-up with her primary care doctor she also was stated she had liver cirrhosis and talking with her does not sound like she has had an EGD in the past she may follow-up with her primary care doctor to have this reviewed. Lab Data 01/30/24 03:53 01/30/24 03:53 Radiology Impressions Chest X-Ray 01/30/24 03:41 IMPRESSION: No acute findings. Laboratory Results WBC 8.38 10^3/uL (3.29-11.43) 01/30/24 03:53 RBC 3.47 10^6/uL (3.85-5.65) L 01/30/24 03:53 Hgb 9.30 g/dL (11.27-16.99) L 01/30/24 03:53 Hct 30.9 % (36-47) L 01/30/24 03:53 MCV 89.0 fl (85-98) 01/30/24 03:53 MCH 26.8 pg (27-33) L 01/30/24 03:53 MCHC 30.1 g/dL (30-55) 01/30/24 03:53 RDW 15.4 % (12.1-15.1) H 01/30/24 03:53 Plt Count 307 10^3/cmm (157-399) 01/30/24 03:53 MPV 10.0 fL (7.4-10.4) 01/30/24 03:53 Neut % (Auto) 71.4 % 01/30/24 03:53 Lymph % (Auto) 19.6 % 01/30/24 03:53 [place] % (Auto) 7.2 % 01/30/24 03:53 Eos % (Auto) 1.2 % 01/30/24 03:53 Baso % (Auto) 0.2 % 01/30/24 03:53 Neut # (Auto) 5.99 10^3/uL (1.8-7.7) 01/30/24 03:53 Lymph # (Auto) 1.6 10^3/uL (0.8-4.8) 01/30/24 03:53 [place] # (Auto) 0.6 10^3/uL (0.2-0.9) 01/30/24 03:53 Eos # (Auto) 0.1 10^3/uL (0.0-0.8) 01/30/24 03:53 Baso # (Auto) 0.0 10^3/uL (0.0-0.1) 01/30/24 03:53 Nucleated RBC % (auto) 0 % 01/30/24 03:53 Nucleated RBCs # 0.0 /100WBC 01/30/24 03:53 PT 12.60 SECONDS (12.1-14.9) 01/30/24 03:53 INR 0.92 (0.8-1.2) 01/30/24 03:53 Sodium 139 mmol/L (136-145) 01/30/24 03:53 Potassium 4.4 mmol/L (3.5-5.1) 01/30/24 03:53 Chloride 103 mmol/L (98-107) 01/30/24 03:53 Carbon Dioxide 24 mmol/L (22-29) 01/30/24 03:53 Anion Gap 16.4 (5-19) 01/30/24 03:53 BUN 24 mg/dL (8-23) H 01/30/24 03:53 Creatinine 1.4 mg/dL (0.5-0.9) H 01/30/24 03:53 GFR Calculation Not Reportable 01/30/24 03:53 Glucose 125 mg/dL (65-115) H 01/30/24 03:53 Calculated Osmolality 294 mOsm/kg (285-295) 01/30/24 03:53 Calcium 8.8 mg/dL (8.5-10.5) 01/30/24 03:53 Total Bilirubin 0.3 mg/dL (0.15-1.2) 01/30/24 03:53 AST 24 U/L (0-32) 01/30/24 03:53 ALT 13 U/L (0-33) 01/30/24 03:53 Alkaline Phosphatase 78 U/L (35-105) 01/30/24 03:53 Troponin T Baseline 19 ng/L (0-10) H 01/30/24 03:53 Troponin T 120 Minute 19.29 ng/L (0-10) H 01/30/24 05:50 Delta Troponin T 0.29 ABS# (0-10) 01/30/24 05:50 Total Protein 7.2 g/dL (6.6-8.7) 01/30/24 03:53 Albumin 3.6 g/dL (3.5-5.2) 01/30/24 03:53 Globulin 3.6 g/dL (1.3-4.6) 01/30/24 03:53 Discharge Plan Discharge Patient Disposition: Home Clinical Impression: Atypical chest pain Condition: Stable Prescriptions: New Protonix 40 mg tablet,delayed release (DR/EC) 40 mg PO DAILY Qty: 30 0RF No Action cholecalciferol (vitamin D3) 125 mcg (5,000 unit) capsule 125 mcg PO DAILY milk thistle 175 mg tablet 175 mg PO BID Rx Instructions: give with meal/snack amlodipine 2.5 mg tablet 2.5 mg PO DAILY Qty: 30 2RF Hold Instructions: Home Medication placed on hold at Doctor's office captopril 50 mg tablet 50 mg PO TID 30 Days Qty: 90 2RF hydrochlorothiazide 12.5 mg tablet 12.5 mg PO QAM Qty: 30 2RF Hold Instructions: Resume on 05/05/22. ferrous gluconate 324 mg (38 mg iron) tablet 324 mg PO DAILY Qty: 30 2RF levothyroxine 100 mcg tablet 100 mcg PO DAILY Qty: 30 2RF metoprolol tartrate 100 mg tablet 100 mg PO BID 30 Days Qty: 60 2RF Rx Instructions: dose increase goal heart rate 60-80 in minute nitroglycerin 0.4 mg tablet, sublingual 0.4 mg SUBLINGUAL Q5M PRN (Reason: chest pain) Qty: 25 6RF Rx Instructions: use every 5 minutes for 3 doses calcitonin (salmon) 200 unit/actuation spray,non-aerosol 1 spray intranasal (ALT) DAILY Qty: 3.7 2RF ascorbic acid (vitamin C) [Vitamin C] 1,000 mg Tablet 500 mg PO BID grape seed extract [Grape Seed] 50 mg Capsule 100 mg PO DAILY Discharge Orders: Discharge ED (Routine); Ordered 01/30/24 Ordered By: Serge Langley Referrals: Martha German, [facility] CHLORIDE OPERATOR-C [Primary Care Provider] - Discharge Diet: Usual diet Discharge Activity: Increase activity as tolerated Patient Instructions: Opioid Safety, Pain Management Activity Restrictions/Additional Instructions: Thank you for choosing [facility] for your healthcare needs today. Please realize this is an emergency room and that we are providing you with a medical screening exam and this may not be complete and all inclusive of all the testing and or work up that you may need to determine your ailment or severity of your illness. It is very important that you follow up as instructed or that you return to the Emergency Department should you have concerns or if your condition changes or worsens in any way. You are seen today for chest discomfort. Your EKG did not show any acute ST changes. Your cardiac enzymes were negative. In reviewing your chart it was noted that you had a coronary angiogram in June 2023 that did not show any significant coronary artery disease Recommend you follow-up with your primary care doctor regarding other potential causes for chest pain. In the meantime we will also recommend that you start Protonix 40 mg daily Coding Level of Care Code ED Refurbish Technician for Yadira Payton
[2024-01-30 04:04] LABS: Basophils % 0.2 %; Eosinophils # 0.1 10^3/uL (0.0-0.8); Eosinophils % 1.2 %; Hematocrit 30.9 % (36-47); Lymphocytes # 1.6 10^3/uL (0.8-4.8); Lymphocytes % 19.6 %; Mean Corpuscular HGB Conc 30.1 g/dL (30-55); Mean Corpuscular Hemoglobin 26.8 pg (27-33); Monocytes # 0.6 10^3/uL (0.2-0.9); Monocytes % 7.2 %; Neutrophils # 5.99 10^3/uL (1.8-7.7); Neutrophils % 71.4 %; Nucleated Red Blood Cells % 0 %; Platelet Count 307 10^3/cmm (157-399); Red Blood Count 3.47 10^6/uL (3.85-5.65); Red Cell Distribution Width 15.4 % (12.1-15.1); White Blood Count 8.38 10^3/uL (3.29-11.43)
[2024-01-30] MEDS: morphine 4 mg/mL SDV 1 mL IVP (04:05)
[2024-01-30 04:11] VITALS: BP 153/73; PULSE 98; RESP 16; O2SAT 97
[2024-01-30 04:18] LABS: INR 0.92 (0.8-1.2)
[2024-01-30 04:23] LABS: Alanine Aminotransferase 13 U/L (0-33); Albumin Level 3.6 g/dL (3.5-5.2); Alkaline Phosphatase 78 U/L (35-105); Anion Gap 16.4 (5-19); Aspartate Amino Transferase 24 U/L (0-32); Blood Urea Nitrogen 24 mg/dL (8-23); Calcium 8.8 mg/dL (8.5-10.5); Carbon Dioxide 24 mmol/L (22-29); Chloride 103 mmol/L (98-107); Creatinine Clr Calc Pharmacy 30.7716; Globulin 3.6 g/dL (1.3-4.6); Glucose 125 mg/dL (65-115); Osmolality Calculated 294 mOsm/kg (285-295); Potassium 4.4 mmol/L (3.5-5.1); Sodium 139 mmol/L (136-145); Total Bilirubin 0.3 mg/dL (0.15-1.2); Total Protein 7.2 g/dL (6.6-8.7)
[2024-01-30 04:31] LABS: Troponin(5th) Baseline 19 ng/L (0-10)
--- NOTE | 2024-01-30 05:41 | ECG_ITS ---
[facility] Test Date: 2024-01-30 Pat Name: Jose M Fairbanks Department: Room: Gender: Female Director Of Food And Nutrition: : 1940 Requested By: Cara Klein Order Number: [id number] Reading MD: Nilay Jacobsen M.D. Measurements Intervals [place] Rate: 93 P: 237 DC: 282 QRS: -27 QRSD: 86 T: 64 QT: 369 QTc: 460 Interpretive Statements SINUS RHYTHM WITH FIRST DEGREE AV BLOCK BORDERLINE LEFT AXIS DEVIATION [QRS AXIS < -20] Compared to ECG 06/02/2023 22:28:23 No significant changes Electronically Signed On 01-30-2024 14:23:29 CDT by Nilay Jacobsen M.D. [id number]
[2024-01-30 06:00] VITALS: BP 142/71; PULSE 81; RESP 15; O2SAT 93
[2024-01-30 06:24] LABS: Troponin 5 2HR 19.29 ng/L (0-10); Troponin 5 2HR Delta 0.29 ABS# (0-10)
--- NOTE | 2024-01-30 06:55 | PC.NURSE ---
TOOK OVER CARE OF PT AT THIS TIME.
[2024-01-30 07:00] VITALS: BP 137/56; PULSE 77; O2SAT 97
[2024-01-30 07:40] VITALS: BP 156/77; PULSE 85; O2SAT 100
== END 2024-01-30 07:42 | disposition home or self-care (01) ==
PROVIDERS: Emergency Medicine; Emergency Provider Family Medicine; PCP Nurse Practitioner
DX: R07.89 Other chest pain (principal); I10 Essential (primary) hypertension
CPT/HCPCS: 36415; 71045; 80053; 84484; 85025; 85610; 93005; 96374; 99285; J2270

== ENCOUNTER 2024-02-01 08:49 | Outpatient (CLI) | payer MEDICARE, OTHER, SELFPAY ==
--- NOTE | 2024-02-01 09:15 | US_ITS ---
WS: [id number] RIGHT UPPER QUADRANT ULTRASOUND HISTORY: K74.60 - Unspecified cirrhosis of liver COMPARISON: 06/10/2023 Liver: 14.0 cm in length. Poorly visualized liver. Coarse echotexture. Hepatic cyst 1.4 x 1.6 x 1.4 c m in the LEFT lobe. No bile duct dilatation. Portal Vein: Normal hepatopetal flow with monophasic waveform. Gallbladder: Prior cholecystectomy. CBD: 0.3 cm Pancreas: Not visualized. Right kidney: 9.1 cm in length. Mild atrophy. Poor cortical measured differentiation. No obstruction. No mass. Aorta and IVC: Not visualized. No ascites. IMPRESSION: 1. Technically difficult evaluation of the RIGHT upper quadrant due to body habitus. 2. Poorly visualized liver. Changes of mild hepatic steatosis and a simple hepatic cyst. No solid ma ss. 3. Normal portal vein. 4. Prior cholecystectomy.
== END 2024-02-01 08:50 | disposition home or self-care (01) ==
LOC: RAD 08:50
PROVIDERS: PCP Nurse Practitioner; Visit Provider Nurse Practitioner
DX: K74.60 Unspecified cirrhosis of liver (principal); K76.0 Fatty (change of) liver, not elsewhere classified; K76.89 Other specified diseases of liver
CPT/HCPCS: 76705

== ENCOUNTER → 2024-02-15 10:48 | Outpatient (BNVA) | payer MEDICARE, OTHER, SELFPAY | PROVIDERS: PCP Nurse Practitioner; Visit Provider Nurse Practitioner | DX: D50.9 Iron deficiency anemia, unspecified (principal); M81.0 Age-related osteoporosis without current pathological fracture | CPT/HCPCS: 82306; 82607; 84443 ==

== ENCOUNTER → 2024-03-15 12:15 | Outpatient (BNVA) | payer MEDICARE, OTHER, SELFPAY | PROVIDERS: PCP Nurse Practitioner; Visit Provider Nurse Practitioner | DX: L50.9 Urticaria, unspecified; K21.9 Gastro-esophageal reflux disease without esophagitis | CPT/HCPCS: 82785; 86001; 86003 ==

== ENCOUNTER 2024-03-23 16:25 | Emergency (ER) | payer MEDICARE, OTHER, SELFPAY ==
[2024-03-23 16:26] VITALS: BP 183/62; PULSE 66; RESP 17; TEMP 36.7; O2SAT 98; BMI 27.4
--- NOTE | 2024-03-23 16:44 | XRR_ITS ---
PROCEDURE INFORMATION: Exam: XR Right Shoulder Exam date and time: 03/23/2024 5:34 PM Age: 84 years old Clinical indication: Injury or trauma; Fall; Other: Unknown TECHNIQUE: Imaging protocol: Radiologic exam of the right shoulder. Views: 2 or more views. COMPARISON: CR XR chest 1V portable [id number] 01/30/2024 3:45 AM FINDINGS: Bones/joints: No acute fracture or dislocation. Mild glenohumeral and moderate acromioclavicular osteoarthritis. Soft tissues: Unremarkable. XR/XR shoulder RT min 2V* [id number] IMPRESSION: No acute fracture or dislocation.
--- NOTE | 2024-03-23 16:44 | XRR_ITS ---
PROCEDURE INFORMATION: Exam: XR Right Hip Exam date and time: 03/23/2024 5:34 PM Age: 84 years old Clinical indication: Injury or trauma; Fall; Other: Unknown; Additional info: Trauma, please do pelvic xray TECHNIQUE: Imaging protocol: Radiologic exam of the right hip. Views: 1 view hip with pelvis when performed. COMPARISON: CR XR hip RT 2-3V wo/w pel* [id number] 11/02/2021 2:15 AM FINDINGS: Bones/joints: No acute fracture or dislocation. Soft tissues: Unremarkable. XR/XR hip RT 2-3V wo/w pel* [id number] IMPRESSION: No acute fracture or dislocation.
--- NOTE | 2024-03-23 16:46 | W.ED.FALL ---
HPI - Fall General: Chief Complaint: Fall Stated Complaint: fall Time Seen by Provider: 03/23/24 16:33 Source: patient Mode of arrival: ambulatory History of Present Illness: 84-year-old female who presents to the emergency room with complaints of fall. She slipped in her yard while she was watering her chickens he laid on the ground for about 30 minutes she states initially she had severe right shoulder and hip pain but its gotten better now and she is able to demonstrate movement through the hip with flexion and extension. She denies striking his head she denies loss of consciousness. complaint: fall Onset (ago): hour(s) Fall from: standing Fall witnessed: no Place fall occurred: home Loss of consciousness: None Context: tripped/slipped Location of injury: other (Right hip, right shoulder) Associated symptoms-after fall: Denies abdominal pain, chest pain, confusion, difficulty walking, headache(s), hematuria, lightheadedness, neck pain, numbness, short of breath, vertigo or weakness Review of Systems Const: Denies: fever(s) or chills Card: Denies: chest pain or lightheadedness Resp: Denies: dyspnea GI: Denies: abdominal pain : Denies: hematuria Musc: Denies: neck pain Skin/Breast: Denies: rash Neuro: Denies: headache(s), difficulty walking, vertigo or confusion PFS ED PFSH: Medical History Angina pectoris Post-menopausal osteoporosis Bilateral carotid artery stenosis Atrial fibrillation Iron deficiency anemia Gastric reflux Tachycardia Oral ulceration Gout, unspecified Migraine Hepatic cirrhosis Acquired hypothyroidism Essential hypertension Surgical History History of cataract extraction History of carpal tunnel release History of gastric bypass Hx of section 3 times Hx of cholecystectomy History of carotid endarterectomy Family History Other Cancer Diabetes Hypertension Social History Smoking and tobacco/nicotine status: never used tobacco/nicotine Second hand smoke exposure: No Alcohol intake: never Substance/Drug Use: never Adopted: No Caregiver/support person: No Lives independently: Yes Household members: spouse Housing: House Marital status: Number of children: 3 service: No Current occupational status: retired Do you think of yourself as: Straight/Heterosexual Current gender identity: Female Physical Exam Const: GENERAL APPEARANCE: cooperative and comfortable ORIENTATION/CONSCIOUSNESS: Yes awake, Yes oriented to person, Yes oriented to place and Yes oriented to time HENMT: COMMON NORMALS: normocephalic, atraumatic and hearing grossly normal bilaterally HEAD & SCALP: normocephalic and atraumatic Resp: COMMON NORMALS: normal respiratory effort, No retractions, No use of accessory muscles and clear to auscultation bilaterally AUSCULTATION: clear to auscultation bilaterally Cardio: COMMON NORMALS: regular rate, regular rhythm and No murmurs present (Cardio) RATE: regular rate RHYTHM: regular rhythm GI: COMMON NORMALS: Soft to palpation and No hepatosplenomegaly present AUSCULTATION: Yes normoactive bowel sounds PALPATION: Yes Soft to palpation, No Tenderness to palpation present (GI), No Guarding due to palpation present (GI) and Yes No hepatosplenomegaly present Extremity: COMMON NORMALS: normal to inspection, capillary refill normal, no clubbing, cyanosis or edema, no calf tenderness and no pedal edema Neuro: SENSORIUM/ORIENTATION: Yes oriented to person, Yes oriented to place and Yes oriented to time Skin: COMMON NORMALS: no rashes or lesions noted GENERAL SKIN EXAM: no rashes or lesions noted Course Vital Signs: Vital signs: Vital Signs Temperature 98.0 F 03/23/24 18:44 Pulse Rate 65 03/23/24 18:44 Respiratory Rate 17 03/23/24 18:44 Blood Pressure 104/68 03/23/24 18:44 Pulse Oximetry 100 03/23/24 18:44 Oxygen Delivery Me thod Room Air 03/23/24 17:11 MDM - Fall Medical Decision Making Labs and imaging reviewed. Patient is moderately anemic but has been chronically still in the past can follow-up as an outpatient without does not require transfusion at this time. X-rays did not show any acute fractures in the shoulder of the hip. Patient ambulated without difficulty. Discharge home [id number] medications as needed for discomfort. Medical Records I reviewed the patient's medical records. Lab Data I reviewed the patient's lab results. 03/23/24 17:23 03/23/24 17:23 Laboratory Results WBC 8.60 10^3/uL (3.29-11.43) 03/23/24 17:23 RBC 3.29 10^6/uL (3.85-5.65) L 03/23/24 17:23 Hgb 8.80 g/dL (11.27-16.99) L 03/23/24 17:23 Hct 28.8 % (36-47) L 03/23/24 17:23 MCV 87.5 fl (85-98) 03/23/24 17:23 MCH 26.7 pg (27-33) L 03/23/24 17:23 MCHC 30.6 g/dL (30-55) 03/23/24 17:23 RDW 16.5 % (12.1-15.1) H 03/23/24 17:23 Plt Count 299 10^3/cmm (157-399) 03/23/24 17:23 MPV 9.9 fL (7.4-10.4) 03/23/24 17:23 Neut % (Auto) 75.1 % 03/23/24 17:23 Lymph % (Auto) 16.4 % 03/23/24 17:23 Haines % (Auto) 6.4 % 03/23/24 17:23 Eos % (Auto) 1.5 % 03/23/24 17:23 Baso % (Auto) 0.3 % 03/23/24 17:23 Neut # (Auto) 6.45 10^3/uL (1.8-7.7) 03/23/24 17:23 Lymph # (Auto) 1.4 10^3/uL (0.8-4.8) 03/23/24 17:23 Haines # (Auto) 0.6 10^3/uL (0.2-0.9) 03/23/24 17:23 Eos # (Auto) 0.1 10^3/uL (0.0-0.8) 03/23/24 17:23 Baso # (Auto) 0.0 10^3/uL (0.0-0.1) 03/23/24 17:23 Nucleated RBC % (auto) 0 % 03/23/24 17:23 Nucleated RBCs # 0.0 /100WBC 03/23/24 17:23 Sodium 141 mmol/L (136-145) 03/23/24 17:23 Potassium 4.3 mmol/L (3.5-5.1) 03/23/24 17:23 Chloride 111 mmol/L (98-107) H 03/23/24 17:23 Carbon Dioxide 22 mmol/L (22-29) 03/23/24 17:23 Anion Gap 12.3 (5-19) 03/23/24 17:23 BUN 24 mg/dL (8-23) H 03/23/24 17:23 Creatinine 1.4 mg/dL (0.5-0.9) H 03/23/24 17:23 GFR Calculation Not Reportable 03/23/24 17:23 Glucose 108 mg/dL (65-115) 03/23/24 17:23 Calculated Osmolality 297 mOsm/kg (285-295) H 03/23/24 17:23 Calcium 8.1 mg/dL (8.5-10.5) L 03/23/24 17:23 Total Bilirubin 0.4 mg/dL (0.15-1.2) 03/23/24 17:23 AST 24 U/L (0-32) 03/23/24 17:23 ALT 12 U/L (0-33) 03/23/24 17:23 Alkaline Phosphatase 76 U/L (35-105) 03/23/24 17:23 Total Protein 7.5 g/dL (6.6-8.7) 03/23/24 17:23 Albumin 3.7 g/dL (3.5-5.2) 03/23/24 17:23 Globulin 3.8 g/dL (1.3-4.6) 03/23/24 17:23 All radiology interpretation(s) finalized by discharge Discharge Plan Discharge Patient Disposition: Home Clinical Impression: Fall, Acute hip pain, Sprain of right shoulder Condition: Stable Prescriptions: No Action cholecalciferol (vitamin D3) 125 mcg (5,000 unit) capsule 125 mcg PO DAILY milk thistle 175 mg tablet 175 mg PO BID Rx Instructions: give with meal/snack nitroglycerin 0.4 mg tablet, sublingual 0.4 mg SUBLINGUAL Q5M PRN (Reason: chest pain) Qty: 25 6RF Rx Instructions: use every 5 minutes for 3 doses amlodipine 2.5 mg tablet 2.5 mg PO DAILY Qty: 30 2RF Hold Instructions: Home Medication placed on hold at Doctor's office captopril 50 mg tablet 50 mg PO TID 30 Days Qty: 90 2RF ferrous gluconate 324 mg (38 mg iron) tablet 324 mg PO DAILY Qty: 30 2RF hydrochlorothiazide 12.5 mg tablet 12.5 mg PO QAM Qty: 30 2RF Hold Instructions: Resume on 05/05/22. levothyroxine 100 mcg tablet 100 mcg PO DAILY Qty: 30 2RF metoprolol tartrate 100 mg tablet 100 mg PO BID 30 Days Qty: 60 2RF Rx Instructions: dose increase goal heart rate 60-80 in minute famotidine [Pepcid] 40 mg tablet 40 mg PO DAILY Qty: 30 2RF cetirizine [Zyrtec] 10 mg tablet 10 mg PO DAILY Qty: 30 2RF Bariatric Multivitamins 45 mg iron- 800 mcg-120 mcg Capsule 1 cap PO DAILY Aspir-81 81 mg Tablet,Delayed Release (Dr/Ec) 81 mg PO DAILY grape seed extract [Grape Seed] 50 mg Capsule 100 mg PO DAILY Discharge Orders: Discharge ED (Routine); Ordered 03/23/24 Ordered By: Serge Langley Referrals: Martha German, MANAGER CORPORATE RESPONSIBILITY-C [Primary Care Provider] - Discharge Diet: Usual diet Discharge Activity: Increase activity as tolerated Patient Instructions: Opioid Safety, Pain Management Activity Restrictions/Additional Instructions: Thank you for choosing [facility] for your healthcare needs today. Please realize this is an emergency room and that we are providing you with a medical screening exam and this may not be complete and all inclusive of all the testing and or work up that you may need to determine your ailment or severity of your illness. It is very important that you follow up as instructed or that you return to the Emergency Department should you have concerns or if your condition changes or worsens in any way. You were seen today after a fall x-rays did not show any acute fractures laboratory tests. Normal. You will likely be very sore the next few days. Return if you have further problems. Coding Level of Care Code ED Manufacturing Development Engineer for Yadira Payton
[2024-03-23 17:11] VITALS: BP 104/68; PULSE 65; O2SAT 100
[2024-03-23 17:29] LABS: Basophils % 0.3 %; Eosinophils # 0.1 10^3/uL (0.0-0.8); Eosinophils % 1.5 %; Hematocrit 28.8 % (36-47); Lymphocytes # 1.4 10^3/uL (0.8-4.8); Lymphocytes % 16.4 %; Mean Corpuscular HGB Conc 30.6 g/dL (30-55); Mean Corpuscular Hemoglobin 26.7 pg (27-33); Mean Corpuscular Volume 87.5 fl (85-98); Mean Platelet Volume 9.9 fL (7.4-10.4); Monocytes # 0.6 10^3/uL (0.2-0.9); Monocytes % 6.4 %; Neutrophils # 6.45 10^3/uL (1.8-7.7); Neutrophils % 75.1 %; Nucleated Red Blood Cells % 0 %; Platelet Count 299 10^3/cmm (157-399); Red Blood Count 3.29 10^6/uL (3.85-5.65); Red Cell Distribution Width 16.5 % (12.1-15.1)
[2024-03-23 17:47] LABS: Alanine Aminotransferase 12 U/L (0-33); Albumin Level 3.7 g/dL (3.5-5.2); Alkaline Phosphatase 76 U/L (35-105); Anion Gap 12.3 (5-19); Aspartate Amino Transferase 24 U/L (0-32); Blood Urea Nitrogen 24 mg/dL (8-23); Calcium 8.1 mg/dL (8.5-10.5); Carbon Dioxide 22 mmol/L (22-29); Chloride 111 mmol/L (98-107); Creatinine Clr Calc Pharmacy 29.1314; Globulin 3.8 g/dL (1.3-4.6); Glucose 108 mg/dL (65-115); Osmolality Calculated 297 mOsm/kg (285-295); Potassium 4.3 mmol/L (3.5-5.1); Sodium 141 mmol/L (136-145); Total Bilirubin 0.4 mg/dL (0.15-1.2); Total Protein 7.5 g/dL (6.6-8.7)
[2024-03-23 18:44] VITALS: BP 104/68; PULSE 65; RESP 17; TEMP 36.7; O2SAT 100
== END 2024-03-23 18:45 | disposition home or self-care (01) ==
PROVIDERS: Emergency Provider Family Medicine; PCP Nurse Practitioner
DX: S43.401A Unspecified sprain of right shoulder joint, initial encounter (principal); M25.551 Pain in right hip; Z79.82 Long term (current) use of aspirin; I10 Essential (primary) hypertension; W01.0XXA Fall on same level from slipping, tripping and stumbling without subsequent striking against object, initial encounter; Y92.007 Garden or yard of unspecified non-institutional (private) residence as the place of occurrence of the external cause
CPT/HCPCS: 73030; 73502; 80053; 85025; 99284

== ENCOUNTER 2024-05-14 13:40 | Outpatient (CLI) | payer MEDICARE, OTHER, SELFPAY ==
--- NOTE | 2024-05-14 14:45 | USCV_ITS ---
Jose M Fairbanks Age: 84 Gender: F : 1940 Exam Date: 05/14/2024 13:50 Ordering Phys: Holland Lanier MD (Andy) ([email or web address] [place]) Technologist: CT Exam Location: [facility] [place] Indication: stenosis Risk Factors: Previous Vascular Surgery: Right Brachial BP: / Left Brachial BP: / Right Left Velocity (cm/s) Spectral Plaque Velocity (cm/s) Spectral Plaque Syst/Diast Broadening Syst/Diast Broadening 81.50/ 13.20 Prox CCA 81.60 / 13.90 81.50/ 15.90 Mid CCA 93.90 / 15.10 86.50/ 15.90 Distal CCA 72.90 / 16.80 149.80/19.50 Prox ICA 87.90 / 26.80 76.40/ 19.50 Mid ICA 110.70/ 28.40 71.50/ 15.10 Distal ICA 109.40/ 28.60 119.40 ECA 95.50 1.70 ICA/CCA 1.50 Antegrade Vertebral Antegrade 23.10/ 6.40 cm/s 48.00/ 11.90 cm/s Tri Subclavian Tri 98.40 91.60 FINDINGS comp 05/13 CONCLUSIONS Right ICA stenosis 50-69%. Severe calcified atheromatous plaque right carotid bulb/ICA. PSV stable since prior Left ICA stenosis <50%. Moderate calcified atheromatous plaque left carotid bulb/ICA. Intimal thickening in the common carotid arteries and internal carotid arteries bilaterally. Normal antegrade Doppler flow noted in the right vertebral artery. Normal antegrade Doppler flow noted in the left vertebral artery. Azael Leonard MD (Electronically Signed) Final Date: 15 May 2024 10:14 S
== END 2024-05-14 13:41 | disposition home or self-care (01) ==
LOC: RAD 13:41
PROVIDERS: PCP Thoracic Surgery (Cardiothoracic Vascular Surgery); Visit Provider Thoracic Surgery (Cardiothoracic Vascular Surgery)
DX: I65.23 Occlusion and stenosis of bilateral carotid arteries (principal)
CPT/HCPCS: 93880

== ENCOUNTER → 2024-05-17 11:17 | Outpatient (BNVA) | payer MEDICARE, OTHER, SELFPAY | PROVIDERS: PCP Thoracic Surgery (Cardiothoracic Vascular Surgery); Visit Provider Nurse Practitioner | DX: Z91.018 Allergy to other foods (principal) | CPT/HCPCS: 86003; 86008 ==

== ENCOUNTER → 2024-07-10 09:34 | Outpatient (BNVA) | payer MEDICARE, OTHER, SELFPAY | PROVIDERS: PCP Nurse Practitioner; Visit Provider Nurse Practitioner Family | DX: I20.9 Angina pectoris, unspecified (principal); I10 Essential (primary) hypertension; Z87.891 Personal history of nicotine dependence; R00.1 Bradycardia, unspecified; I44.0 Atrioventricular block, first degree | CPT/HCPCS: 93005 ==

== ENCOUNTER 2024-07-26 12:54 | Emergency (ER) | payer MEDICARE, OTHER, SELFPAY ==
[2024-07-26] VITALS (7 sets, daily range): BP systolic 141–167; BP diastolic 65–76; PULSE 64–109; RESP 16–18; TEMP 36.5–36.6; O2SAT 95–100; BMI 26.5
--- NOTE | 2024-07-26 13:01 | ECG_ITS ---
[facility] Test Date: 2024-07-26 Pat Name: Jose M Fairbanks Department: Room: Gender: Female Floor Broker: : 1940 Requested By: Cara Klein Order Number: [id number] Lidya MD: Regis Rodas M.D. Measurements Intervals [place] Rate: 76 P: 0 [place]: 0 QRS: -36 QRSD: 106 T: 52 QT: 372 QTc: 419 Interpretive Statements ATRIAL FIBRILLATION LEFT AXIS DEVIATION [QRS AXIS < -30] PATTERN CONSISTENT WITH PULMONARY DISEASE MODERATE VOLTAGE CRITERIA FOR LVH, CONSIDER NORMAL VARIANT [MEETS CRITERIA IN ONE OF: R(aVL), S(V1), R(V5), R(V5/V6)+S(V1)] Compared to ECG 07/10/2024 09:47:37 Left-axis deviation now present Sinus bradycardia no longer present Sinus arrhythmia no longer present Electronically Signed On 07-26-2024 14:41:39 CDT by Regis Rodas M.D. [id number]
[2024-07-26] MEDS: aspirin 81 mg Chew Tablet 324 MG PO (13:12)
[2024-07-26] MEDS: lidocaine 2% viscous 15 ML, aluminum-mag hydrox-simethicon 30 ML, sucralfate oral liq 1 GM PO (13:14)
[2024-07-26 13:19] LABS: Basophils % 0.3 %; Eosinophils # 0.1 10^3/uL (0.0-0.8); Eosinophils % 0.7 %; Hematocrit 32.4 % (36-47); Lymphocytes # 1.1 10^3/uL (0.8-4.8); Lymphocytes % 15.8 %; Mean Corpuscular HGB Conc 30.6 g/dL (30-55); Mean Corpuscular Hemoglobin 27.8 pg (27-33); Mean Platelet Volume 9.2 fL (7.4-10.4); Monocytes # 0.4 10^3/uL (0.2-0.9); Monocytes % 6.3 %; Neutrophils # 5.32 10^3/uL (1.8-7.7); Neutrophils % 76.5 %; Nucleated Red Blood Cells % 0 %; Platelet Count 319 10^3/cmm (157-399); Red Blood Count 3.56 10^6/uL (3.85-5.65); Red Cell Distribution Width 15.3 % (12.1-15.1); White Blood Count 6.96 10^3/uL (3.29-11.43)
--- NOTE | 2024-07-26 13:25 | ED_ITS ---
HPI - Chest Pain 2 General: Chief Complaint: Chest Pain Stated Complaint: syncope Time Seen by Provider: 07/26/24 12:56 Source: patient and EMS Mode of arrival: EMS Limitations: no limitations History of Present Illness: 84-year-old female who states that she h ad been having chest pain today states she got up at an outside and felt like she was going to pass out and states she has been having substernal chest pain since then. Said some slight dyspnea as well. She does have a history of A-fib she denies any vomiting or diarrhea. Associated symptoms: Deny abdominal pain, dyspnea, fever(s), nausea or vomiting Related Data Home Medications Medication Instructions Recorded Confirmed cholecalciferol (vitamin D3) 125 125 mcg PO DAILY 04/13/22 07/10/24 mcg (5,000 unit) capsule grape seed extract 50 mg capsule 100 mg PO DAILY 04/20/22 07/10/24 (Grape Seed) milk thistle 175 mg tablet 175 mg PO BID 05/06/22 07/10/24 aspirin 81 mg tablet,delayed 81 mg PO DAILY 01/30/24 07/10/24 release [id number] 45 mg-folic 1 cap PO DAILY 01/30/24 07/10/24 acid 800 mcg-vit K 120 mcg capsule (Bariatric Multivitamins) Previous Rx's Medication Instructions Recorded amlodipine 2.5 mg tablet 2.5 mg PO DAILY #30 tabs 05/17/24 cetirizine 10 mg tablet (Zyrtec) 10 mg PO DAILY #30 tabs 05/17/24 famotidine 40 mg tablet (Pepcid) 40 mg PO DAILY #30 tabs 05/17/24 ferrous gluconate 324 mg (38 mg 324 mg PO DAILY #30 tabs 05/17/24 iron) tablet hydrochlorothiazide 12.5 mg tablet 12.5 mg PO QAM #30 tabs 05/17/24 levothyroxine 100 mcg tablet 100 mcg PO DAILY #30 tabs 05/17/24 ibandronate 150 mg tablet 150 mg PO .month #1 tab 06/13/24 nitroglycerin 0.4 mg sublingual 0.4 mg sublingual Q5M PRN chest 07/09/24 tablet pain #25 tabs metoprolol tartrate 50 mg tablet 50 mg PO BID #180 tabs 07/10/24 valsartan 80 mg tablet 80 mg PO DAILY #30 tabs 07/10/24 Allergies Allergy/AdvReac Type Severity Reaction Status Date / Time orange Allergy Severe ADR-Itching Verified 07/10/24 09:36 dabigatran etexilate Allergy ADR-Muscle Verified 07/10/24 09:36 [From Pradaxa] Pain rivaroxaban [From Xarelto] Allergy ADR-Heartbu Verified 07/10/24 09:36 rn warfarin Allergy ALGY-Swell Verified 07/10/24 09:36 Lip/Tongue/Throat Beef Containing Products AdvReac Severe ADR-Heartbu Verified 07/10/24 09:36 rn cocoa AdvReac Severe ADR-Gastrointestinal Verified 07/10/24 09:36 Upset peanut AdvReac Severe ADR-Gastrointestinal Verified 07/10/24 09:36 Upset Review of Systems 2 Const: Denies: fever(s), chills, body aches or change in appetite ENMT: Denies: throat pain or dental pain Card: Reports: chest pain and pre-syncope Resp: Denies: dyspnea GI: Denies: abdominal pain, nausea, vomiting or diarrhea : Denies: dysuria Musc: Denies: neck pain or back pain Skin/Breast: Denies: rash Neuro: Denies: headache(s) PFSH ED 2 PFSH: Medical History Angina pectoris Post-menopausal osteoporosis Bilateral carotid artery stenosis Atrial fibrillation Iron deficiency anemia Gastric reflux Tachycardia Oral ulceration Gout, unspecified Migraine Hepatic cirrhosis Acquired hypothyroidism Essential hypertension Surgical History History of cataract extraction History of carpal tunnel release History of gastric bypass Hx of section 3 times Hx of cholecystectomy History of carotid endarterectomy Family History Other Cancer Diabetes Hypertension Social History Smoking and tobacco/nicotine status: former use of tobacco/nicotine Second hand smoke exposure: No Alcohol intake: never Substance/Drug Use: never Adopted: No Caregiver/support person: No Lives independently: Yes Household members: spouse Housing: House Marital status: Number of children: 3 service: No Current occupational status: retired Do you think of yourself as: Straight/Heterosexual Current gender identity: Female Physical Exam 2 Const: COMMON NORMALS: patient oriented x3 HENMT: COMMON NORMALS: normocephalic and atraumatic HEAD & SCALP: n ormocephalic and atraumatic Neck/C-Spine: COMMON NORMALS: full ROM and supple Chest: COMMONS NORMALS: normal inspection of the chest Resp: COMMON NORMALS: normal respiratory effort, No retractions, No use of accessory muscles and clear to auscultation bilaterally AUSCULTATION: clear to auscultation bilaterally Cardio: COMMON NORMALS: regular rate, regular rhythm and No murmurs present (Cardio) RATE: regular rate RHYTHM: regular rhythm GI: COMMON NORMALS: Normal to inspection, nondistended, normoactive bowel sounds present, Soft to palpation, non-tender and no masses PALPATION: Yes Soft to palpation Extremity: COMMON NORMALS: normal to inspection and full ROM Neuro: COMMON NORMALS: patient oriented x3, moves all extremities and no focal motor deficits Psych: COMMON NORMALS: mental status grossly normal, Normal thought process present and cooperative THOUGHT PROCESS: Normal thought process present Skin: COMMON NORMALS: no rashes or lesions noted and no wounds GENERAL SKIN EXAM: no rashes or lesions noted Course 2 Vital Signs: Vital signs: Vital Signs Temperature 97.8 F 07/26/24 13:18 Pulse Rate 76 07/26/24 15:23 Respiratory Rate 16 07/26/24 15:23 Blood Pressure 157/72 07/26/24 15:23 Pulse Oximetry 97 07/26/24 15:23 Oxygen Delivery Me thod Room Air 07/26/24 15:23 MDM - Chest Pain Medical Decision Making Patient presents here with chest pain her pain has been resolved here she had a negative cath a year ago troponins here are negative I did offer admission she states that she feels improved would like to go home she already has a stress test set up later this month she is to follow-up with that return if worsening she understands agrees to plan. Medical Records I reviewed the patient's medical records. Lab Data I reviewed the patient's lab results. 07/26/24 13:13 07/26/24 13:13 Radiology Impressions Chest X-Ray 07/26/24 14:14 Impression: No acute lung process is seen. Laboratory Results WBC 6.96 10^3/uL (3.29-11.43) 07/26/24 13:13 RBC 3.56 10^6/uL (3.85-5.65) L 07/26/24 13:13 Hgb 9.90 g/dL (11.27-16.99) L 07/26/24 13:13 Hct 32.4 % (36-47) L 07/26/24 13:13 MCV 91.0 fl (85-98) 07/26/24 13:13 MCH 27.8 pg (27-33) 07/26/24 13:13 MCHC 30.6 g/dL (30-55) 07/26/24 13:13 RDW 15.3 % (12.1-15.1) H 07/26/24 13:13 Plt Count 319 10^3/cmm (157-399) 07/26/24 13:13 MPV 9.2 fL (7.4-10.4) 07/26/24 13:13 Neut % (Auto) 76.5 % 07/26/24 13:13 Lymph % (Auto) 15.8 % 07/26/24 13:13 Dewitt % (Auto) 6.3 % 07/26/24 13:13 Eos % (Auto) 0.7 % 07/26/24 13:13 Baso % (Auto) 0.3 % 07/26/24 13:13 Neut # (Auto) 5.32 10^3/uL (1.8-7.7) 07/26/24 13:13 Lymph # (Auto) 1.1 10^3/uL (0.8-4.8) 07/26/24 13:13 Dewitt # (Auto) 0.4 10^3/uL (0.2-0.9) 07/26/24 13:13 Eos # (Auto) 0.1 10^3/uL (0.0-0.8) 07/26/24 13:13 Baso # (Auto) 0.0 10^3/uL (0.0-0.1) 07/26/24 13:13 Nucleated RBC % (auto) 0 % 07/26/24 13:13 Nucleated RBCs # 0.0 /100WBC 07/26/24 13:13 PT 13.60 SECONDS (12.1-14.9) 07/26/24 13:13 INR 1.01 (0.8-1.2) 07/26/24 13:13 Sodium 140 mmol/L (136-145) 07/26/24 13:13 Potassium 5.4 mmol/L (3.5-5.1) H 07/26/24 13:13 Chloride 106 mmol/L (98-107) 07/26/24 13:13 Carbon Dioxide 22 mmol/L (22-29) 07/26/24 13:13 Anion Gap 17.4 (5-19) 07/26/24 13:13 BUN 24 mg/dL (8-23) H 07/26/24 13:13 Creatinine 1.3 mg/dL (0.5-0.9) H 07/26/24 13:13 GFR Calculation Not Reportable 07/26/24 13:13 Glucose 128 mg/dL (65-115) H 07/26/24 13:13 Calculated Osmolality 296 mOsm/kg (285-295) H 07/26/24 13:13 Calcium 8.5 mg/dL (8.5-10.5) 07/26/24 13:13 Total Bilirubin 0.7 mg/dL (0.15-1.2) 07/26/24 13:13 AST 19 U/L (0-32) 07/26/24 13:13 ALT 10 U/L (0-33) 07/26/24 13:13 Alkaline Phosphatase 95 U/L (35-105) 07/26/24 13:13 Troponin T Baseline 19 ng/L (0-10) H 07/26/24 13:13 Delta Troponin T 2.67 ABS# (0-10) 07/26/24 15:12 Total Protein 7.8 g/dL (6.6-8.7) 07/26/24 13:13 Albumin 3.9 g/dL (3.5-5.2) 07/26/24 13:13 Globulin 3.9 g/dL (1.3-4.6) 07/26/24 13:13 Lipase 69 U/L (13-60) H 07/26/24 13:13 All radiology interpretation(s) finalized by discharge EKG Data EKG 1: I personally reviewed and interpreted this EKG as follows: EKG interpretation date: 07/26/24 EKG interpretation time: 13:01 Interpretation: afib hr 76 no sst elevation qrs 106 qtc 402 EKG 2: I personally reviewed and interpreted this EKG as follows: EKG interpretation date: 07/26/24 EKG interpretation time: 14:56 Interpretation: afib hr [address] elevation qrs 99 qtc 417 Discharge Plan Discharge Patient Disposition: Home Clinical Impression: Chest pain Qualifiers: Chest pain type: unspecified Qualified Code(s): R07.9 - Chest pain, unspecified Condition: Stable Prescriptions: No Action cholecalciferol (vitamin D3) 125 mcg (5,000 unit) capsule 125 mcg PO DAILY milk thistle 175 mg tablet 175 mg PO BID Rx Instructions: give with meal/snack amlodipine 2.5 mg tablet 2.5 mg PO DAILY Qty: 30 2RF Hold Instructions: Home Medication placed on hold at Doctor's office cetirizine [Zyrtec] 10 mg tablet 10 mg PO DAILY Qty: 30 2RF famotidine [Pepcid] 40 mg tablet 40 mg PO DAILY Qty: 30 2RF ferrous gluconate 324 mg (38 mg iron) tablet 324 mg PO DAILY Qty: 30 2RF hydrochlorothiazide 12.5 mg tablet 12.5 mg PO QAM Qty: 30 2RF Hold Instructions: Resume on 05/05/22. levothyroxine 100 mcg tablet 100 mcg PO DAILY Qty: 30 2RF ibandronate 150 mg tablet 150 mg PO .month Qty: 1 2RF metoprolol tartrate 50 mg tablet 50 mg PO BID Qty: 180 2RF Rx Instructions: dose increase goal heart rate 60-80 in minute valsartan 80 mg tablet 80 mg PO DAILY Qty: 30 3RF nitroglycerin 0.4 mg tablet, sublingual 0.4 mg SUBLINGUAL Q5M PRN (Reason: chest pain) Qty: 25 0RF Rx Instructions: use every 5 minutes for 3 doses Bariatric Multivitamins 45 mg iron- 800 mcg-120 mcg Capsule 1 cap PO DAILY Aspir-81 81 mg Tablet,Delayed Release (Dr/Ec) 81 mg PO DAILY grape seed extract [Grape Seed] 50 mg Capsule 100 mg PO DAILY Discharge Orders: Discharge ED (Routine); Ordered 07/26/24 Ordered By: Cara Klein Referrals: Martha German, FIELD MECHANIC/SITE LEAD-C [Primary Care Provider] - 4-7 days Discharge Diet: Advance as tolerated Discharge Activity: Resume usual activity Patient Instructions: Chest Pain (ED) Coding Level of Care Code ED Software Systems Engineer for Yadira Payton
[2024-07-26 13:43] LABS: Troponin(5th) Baseline 19 ng/L (0-10)
[2024-07-26 13:55] LABS: Alanine Aminotransferase 10 U/L (0-33); Albumin Level 3.9 g/dL (3.5-5.2); Alkaline Phosphatase 95 U/L (35-105); Anion Gap 17.4 (5-19); Aspartate Amino Transferase 19 U/L (0-32); Blood Urea Nitrogen 24 mg/dL (8-23); Calcium 8.5 mg/dL (8.5-10.5); Carbon Dioxide 22 mmol/L (22-29); Chloride 106 mmol/L (98-107); Creatinine Clr Calc Pharmacy 30.8945; Globulin 3.9 g/dL (1.3-4.6); Glucose 128 mg/dL (65-115); Lipase 69 U/L (13-60); Osmolality Calculated 296 mOsm/kg (285-295); Potassium 5.4 mmol/L (3.5-5.1); Sodium 140 mmol/L (136-145); Total Bilirubin 0.7 mg/dL (0.15-1.2); Total Protein 7.8 g/dL (6.6-8.7)
--- NOTE | 2024-07-26 14:14 | XR_ITS ---
WS: [id number] Examination: XR chest 1V portable [id number] Reason for Exam: cp Date: 07/26/2024 Comparison: 01/30/2020 Findings: The heart is not enlarged. The mediastinum not widened. The olesya are not enlarged. There is no edema or effusion. There is no consolidation. XR/XR chest 1V portable [id number] Impression: No acute lung process is seen.
[2024-07-26] MEDS: HYDROcodone-acetaminophen 5-325 mg Tablet 1 TAB PO (14:21)
[2024-07-26 14:53] LABS: INR 1.01 (0.8-1.2)
--- NOTE | 2024-07-26 15:02 | ECG_ITS ---
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 Measurements Intervals [place] Rate: 71 P: 0 IN: 0 QRS: -33 QRSD: 99 T: 54 QT: 395 QTc: 430 Interpretive Statements SINUS RHYTHM WITH FIRST DEGREE AV BLOCK LEFT AXIS DEVIATION [QRS AXIS < -30] PATTERN CONSISTENT WITH PULMONARY DISEASE MODERATE VOLTAGE CRITERIA FOR LVH, CONSIDER NORMAL VARIANT [MEETS CRITERIA IN ONE OF: R(aVL), S(V1), R(V5), R(V5/V6)+S(V1)] Compared to ECG 07/26/2024 13:01:17 No significant changes Electronically Signed On 07-26-2024 16:09:14 CDT by Regis Rodas M.D. [id number]
[2024-07-26 15:36] LABS: Troponin 5 2HR 21.67 ng/L (0-10); Troponin 5 2HR Delta 2.67 ABS# (0-10)
== END 2024-07-26 16:06 | disposition home or self-care (01) ==
PROVIDERS: Emergency Provider Emergency Medicine; PCP Nurse Practitioner
DX: R07.9 Chest pain, unspecified (principal); Z79.82 Long term (current) use of aspirin; Z87.891 Personal history of nicotine dependence; I10 Essential (primary) hypertension
CPT/HCPCS: 36415; 71045; 80053; 83690; 84484; 85025; 85610; 93005; 99285

== ENCOUNTER → 2024-08-01 09:55 | Outpatient (BNVA) | payer MEDICARE, OTHER, SELFPAY | PROVIDERS: PCP Nurse Practitioner; Visit Provider Nurse Practitioner | DX: I10 Essential (primary) hypertension (principal); E55.9 Vitamin D deficiency, unspecified; D64.9 Anemia, unspecified; D50.9 Iron deficiency anemia, unspecified | CPT/HCPCS: 80053; 80061; 82306; 82607; 84443; 85025 ==

== ENCOUNTER → 2024-08-02 09:55 | Outpatient (BNVA) | payer MEDICARE, OTHER, SELFPAY | PROVIDERS: PCP Nurse Practitioner; Visit Provider Nurse Practitioner | DX: E03.9 Hypothyroidism, unspecified | CPT/HCPCS: 84439; 84481 ==

== ENCOUNTER 2024-08-14 08:20 | Outpatient (CLI) | payer MEDICARE, OTHER, SELFPAY ==
--- NOTE | 2024-08-14 | ECG_ITS ---
[facility] Test Date: 2024-08-14 Pat Name: Jose M Fairbanks Department: Room: Gender: Female Commercial Driver'S License Driver: : 1940 Requested By: Rochelle Holloway Order Number: [id number] Lidya MD: Ralph Wilhelm M.D. Interpretive Statements Lexiscan/sestamibi/sestamibi stress test PROCEDURE: At the baseline, the EKG revealed normal sinus rhythm with a first-degree AV block. Minimal left axis deviation. Nonspecific T wave changes.. The baseline heart was 60 bpm with a blood pressue of 135/58 mm of Hg Lexiscan was infused over a period of 20 seconds. A total of 0.4 milligrams of Lexiscan was infused. The stress phase was continued for a total of 5 minutes. Heart rate at the end of the stress phase was 78 bpm with a blood pressure 129/50 mm of Hg. The EKG at the peak infusion revealed no significant changes. Sestamibi was injected 20 seconds after the Lexiscan infusion. Lung unchanged pre/post procedure; Intra procedure shortness of breath; Symptoms resoled by discharge Heart rate at the end of the recovery phase was 75 bpm with a blood pressure of 133/51 mm of Hg. CONCLUSION: 1. No significant EKG changes with the LexiScan infusion 2. No LexiScan induced chest pain or cardiac arrhythmia 3. Normal blood pressure and heart rate response 4. Sestamibi/sestamibi perfusion scan pending; see separate report. Electronically Signed On 08-19-2024 21:16:14 CDT by Ralph Wilhelm M.D. [id number]
[2024-08-14 08:30] VITALS: BMI 28.0
--- NOTE | 2024-08-14 08:35 | NMCV_ITS ---
NM rafael perf SPECT r/s* [id number] Jose M Fairbanks Age: 84 Gender: F : 1940 Exam Date: 08/14/2024 09:22 Ordering Phys: Rochelle Holloway Technologist: SOCO Briceno Exam Location: [facility] Indications: cp STRESS TEST Please see separate stress test report in [facility] for full findings IMAGE PROTOCOL Rest/Stress 1 Lexiscan Day Radiopharmaceutical Dose (mCi) Administration Site Administered by Rest: Tc-99m 10.9 IV Violetta Tariq, PLATING DEPARTMENT HELPER Sestamibi Stress:Tc-99m 32.1 IV Violetta Bautistagle, PLATING DEPARTMENT HELPER Sestamibi Rest: 14-Aug-2024 60 Discovery 630 Stress: 14-Aug-2024 30 Discovery 630 0.4mg Lexiscan. Images obtained in supine and prone position. SPECT RESULTS Technical Quality: Good Raw Data Analysis: Normal Image Corrections: No attenuation or motion correction applied Summed Stress Score: 3 Summed Rest Score: 5 Summed Difference Score: 0 PERFUSION FINDINGS Small area of minimal to moderately decreased tracer uptake involving the mid inferolateral and apical lateral region with no significant reversibility FUNCTIONAL RESULTS (calculated via Gated SPECT) Stress Image LV EF (%): 88 Stress EDV (mL):67 TID: 1.07 Stress ESV (mL):8 FUNCTIONAL FINDINGS: Segmental wall motion analysis revealing no gross wall motion abnormalities IMPRESSIONS 1. Myocardial perfusion imaging revealing a small area of persistent decreased tracer uptake involving the mid inferolateral and apical lateral regions, suggesting myocardial scarring versus attenuation artifact 2. Normal LV ejection fraction 88%. 3. LV wall motion analysis revealing no gross wall motion abnormalities. 4. Normal LV volume Low probability for coronary ischemia, based on the above findings Dr Ralph Wilhelm MD [facility] (Electronically Signed) Final Date: 14 August 2024 13:36 S
[2024-08-14] MEDS: regadenoson 0.4 Mg/5 ml Syringe IVP (10:48)
[2024-08-14 11:03] VITALS: BP 129/49; PULSE 68
== END 2024-08-14 08:21 | disposition home or self-care (01) ==
PROVIDERS: PCP Nurse Practitioner; Visit Provider Nurse Practitioner Family
DX: I10 Essential (primary) hypertension (principal); I20.9 Angina pectoris, unspecified; R94.39 Abnormal result of other cardiovascular function study; R06.02 Shortness of breath
CPT/HCPCS: 36415; 78452; 93017; 96374; 99214; A9500; J2785

== ENCOUNTER → 2024-08-22 15:15 | Outpatient (BNVA) | payer MEDICARE, OTHER, SELFPAY | PROVIDERS: PCP Nurse Practitioner; Visit Provider Nurse Practitioner | DX: Z91.018 Allergy to other foods | CPT/HCPCS: 86003; 86008 ==

== ENCOUNTER → 2024-08-23 13:02 | Outpatient (BNVA) | payer MEDICARE, OTHER, SELFPAY | PROVIDERS: PCP Nurse Practitioner; Visit Provider Internal Medicine Cardiovascular Disease | DX: R00.0 Tachycardia, unspecified (principal); R42 Dizziness and giddiness; I49.8 Other specified cardiac arrhythmias | CPT/HCPCS: 93005; 99214 ==

== ENCOUNTER → 2024-10-15 10:10 | Outpatient (BNVA) | payer MEDICARE, OTHER, SELFPAY | PROVIDERS: PCP Nurse Practitioner; Visit Provider Nurse Practitioner | DX: E03.9 Hypothyroidism, unspecified (principal) | CPT/HCPCS: 80053; 84439; 84443; 84481; 85025 ==

== ENCOUNTER → 2024-10-22 08:49 | Outpatient (BNVA) | payer MEDICARE, OTHER, SELFPAY | PROVIDERS: PCP Nurse Practitioner; Visit Provider Nurse Practitioner | DX: D49.2 Neoplasm of unspecified behavior of bone, soft tissue, and skin (principal); M19.011 Primary osteoarthritis, right shoulder | CPT/HCPCS: 73000 ==

== ENCOUNTER → 2024-12-24 11:14 | Outpatient (BNVA) | payer MEDICARE, OTHER, SELFPAY | PROVIDERS: PCP Nurse Practitioner; Visit Provider Nurse Practitioner | DX: D64.9 Anemia, unspecified (principal); D50.9 Iron deficiency anemia, unspecified; E03.9 Hypothyroidism, unspecified; I10 Essential (primary) hypertension; E55.9 Vitamin D deficiency, unspecified | CPT/HCPCS: 80053; 80061; 82306; 82607; 84443; 85025 ==

== ENCOUNTER → 2025-02-12 13:35 | Outpatient (BNVA) | payer MEDICARE, OTHER, SELFPAY | PROVIDERS: PCP Nurse Practitioner; Visit Provider Internal Medicine Cardiovascular Disease | DX: I25.10 Atherosclerotic heart disease of native coronary artery without angina pectoris (principal); K76.89 Other specified diseases of liver; I48.91 Unspecified atrial fibrillation; K91.89 Other postprocedural complications and disorders of digestive system; Z98.84 Bariatric surgery status; Z95.1 Presence of aortocoronary bypass graft | CPT/HCPCS: 99214 ==

== ENCOUNTER → 2025-02-21 11:15 | Outpatient (BNVA) | payer MEDICARE, OTHER, SELFPAY | PROVIDERS: PCP Nurse Practitioner; Visit Provider Nurse Practitioner | DX: Z91.018 Allergy to other foods (principal) | CPT/HCPCS: 86003; 86008 ==

== ENCOUNTER → 2025-03-14 08:19 | Outpatient (BNVA) | payer MEDICARE, OTHER, SELFPAY | PROVIDERS: PCP Nurse Practitioner; Visit Provider Nurse Practitioner | DX: E55.9 Vitamin D deficiency, unspecified (principal); D64.9 Anemia, unspecified; I10 Essential (primary) hypertension | CPT/HCPCS: 80053; 80061; 82306; 84443; 85025 ==

== ENCOUNTER → 2025-03-19 11:28 | Outpatient (BNVA) | payer MEDICARE, OTHER, SELFPAY | PROVIDERS: PCP Nurse Practitioner; Visit Provider Nurse Practitioner | DX: M25.562 Pain in left knee (principal) | CPT/HCPCS: 73562 ==

== ENCOUNTER → 2025-06-19 09:55 | Outpatient (BNVA) | payer MEDICARE, OTHER, SELFPAY | PROVIDERS: PCP Nurse Practitioner; Visit Provider Nurse Practitioner | DX: E55.9 Vitamin D deficiency, unspecified (principal); E03.9 Hypothyroidism, unspecified; I10 Essential (primary) hypertension | CPT/HCPCS: 80053; 80061; 82306; 84443; 85025 ==

== ENCOUNTER 2025-06-27 14:16 | Emergency (ER) | payer MEDICARE, OTHER, SELFPAY ==
[2025-06-27 14:17] VITALS: BP 172/79; PULSE 74; RESP 18; TEMP 36.7; O2SAT 98
--- NOTE | 2025-06-27 14:29 | ECG_ITS ---
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 Measurements Intervals [place] Rate: 68 P: 0 ND: 0 QRS: -17 QRSD: 96 T: 62 QT: 385 QTc: 410 Interpretive Statements sinus rhythm with first-degree AV block and sinus arrhythmia MINIMAL VOLTAGE CRITERIA FOR LVH, CONSIDER NORMAL VARIANT [MEETS CRITERIA IN ONE OF: R(aVL), S(V1), R(V5), R(V5/V6)+S(V1)] ABNORMAL RHYTHM ECG Compared to ECG 07/26/2024 14:56:46 Sinus rhythm no longer present First degree AV block no longer present Left-axis deviation no longer present Electronically Signed On 06-28-2025 13:51:35 CDT by Ralph Wilhelm M.D. [id number] [id number]
--- NOTE | 2025-06-27 14:35 | W.ED.GENADLT ---
HPI - General Adult General: Chief complaint: General Medical Stated complaint: heart palpitations - anxierty Time Seen by Provider: 06/27/25 14:28 History of Present Illness: 85-year-old female with a history of atrial fibrillation present via EMS with complaints of rapid heart rate generally weak feeling. Patient relates that having recently started Seroquel at night as a sleeping pill this morning she took her medicines she had rapid irregular heart rates and some chest discomfort she took metoprolol and nitro all of her symptoms had resolved by the time EMS had her arrived. She has no symptoms at this time. She she has had similar symptoms in the past. No known history of any coronary artery disease. Associated symptoms: Reports palpitations; Deny chest pain, dyspnea or rash Related Data Home Medications ?Medication ?Instructions ?Recorded ?Confirmed cholecalciferol (vitamin D3) 125 125 mcg PO DAILY 04/13/22 07/04/25 mcg (5,000 unit) capsule milk thistle 175 mg tablet 175 mg PO BID 05/06/22 07/04/25 aspirin 81 mg tablet,delayed 81 mg PO DAILY 01/30/24 07/04/25 release [id number] 45 mg-folic 1 cap PO DAILY 01/30/24 07/04/25 acid 800 mcg-vit K 120 mcg capsule (Bariatric Multivitamins) Previous Rx's ?Medication ?Instructions ?Recorded valsartan 80 mg tablet 80 mg PO DAILY #30 tabs 07/10/24 epinephrine 0.3 mg/0.3 mL 0.3 mg (0.3 mL) IM Q10M PRN 03/04/25 injection, auto-injector (EpiPen) anaphylaxis #2 ea metoprolol succinate 50 mg 50 mg PO DAILY #90 tabs 04/08/25 tablet,extended release 24 hr nitroglycerin 0.4 mg sublingual 0.4 mg sublingual Q5M PRN chest 05/06/25 tablet pain #25 tabs amlodipine 2.5 mg tablet 2.5 mg PO DAILY #30 tabs 06/25/25 cetirizine 10 mg tablet (Zyrtec) 10 mg PO DAILY #30 tabs 06/25/25 famotidine 40 mg tablet (Pepcid) 40 mg PO DAILY #30 tabs 06/25/25 ferrous gluconate 324 mg (38 mg 324 mg PO BID #30 tabs 06/25/25 iron) tablet ibandronate 150 mg tablet 150 mg PO .month #1 tab 06/25/25 levothyroxine 75 mcg tablet 75 mcg PO DAILY #30 tabs 06/25/25 Held on 07/01/25. Instructions: for 3 days liothyronine 5 mcg tablet (Cytomel) 5 mcg PO DAILY #30 tabs 06/25/25 Held on 07/01/25. Instructions: Hold for 3 days rosuvastatin 20 mg tablet 20 mg PO DAILY #30 tabs 06/25/25 Allergies Allergy/AdvReac Type Severity Reaction Status Date / Time Alpha-Gal Allergy Severe ALGY-Hives Verified 07/04/25 14:17 ([id number]-1,3-Gala dabigatran etexilate (From Allergy ADR-Muscle Verified 07/04/25 14:17 Pradaxa) Pain rivaroxaban (From Xarelto) Allergy ADR-Heartbu Verified 07/04/25 14:17 rn warfarin Allergy ALGY-Swell Verified 07/04/25 14:17 Lip/Tongue/Throat Beef Containing Products AdvReac Severe ADR-Heartbu Verified 07/04/25 14:17 rn quetiapine (From Seroquel) AdvReac Severe ADR/ALGY-Pa Verified 07/04/25 14:17 lpitations Review of Systems Const: Denies: fever(s) or chills Card: Reports: palpitations; Denies: chest pain Resp: Denies: dyspnea GI: Denies: abdominal pain : Denies: dysuria, urinary frequency or urinary urgency Musc: Denies: neck pain or back pain Skin/Breast: Denies: rash PFSH ED PFSH: Medical History Allergy to alpha-gal Angina pectoris Post-menopausal osteoporosis Bilateral carotid artery stenosis Atrial fibrillation Iron deficiency anemia Gastric reflux Tachycardia Oral ulceration Gout, unspecified Migraine Hepatic cirrhosis Acquired hypothyroidism Essential hypertension Surgical History History of cataract extraction History of carpal tunnel release History of gastric bypass Hx of section 3 times Hx of cholecystectomy History of carotid endarterectomy Family History Other Cancer Diabetes Hypertension Social History Smoking and tobacco/nicotine status: former use of tobacco/nicotine Second hand smoke exposure: No Alcohol intake: never Substance/Drug Use: never Adopted: No Caregiver/support person: No Lives independently: Yes Household members: spouse Housing: House Marital status: Number of children: 3 service: No Current occupational status: retired Do you think of yourself as: Straight/Heterosexual Current gender identity: Female Physical Exam Const: GENERAL APPEARANCE: cooperative ORIENTATION/CONSCIOUSNESS: Yes awake, Yes oriented to person, Yes oriented to place and Yes oriented to time HENMT: COMMON NORMALS: normocephalic, atraumatic and hearing grossly normal bilaterally HEAD & SCALP: normocephalic and atraumatic Resp: COMMON NORMALS: normal respiratory effort, No retractions, No use of accessory muscles and clear to auscultation bilaterally AUSCULTATION: clear to auscultation bilaterally Cardio: COMMON NORMALS: regular rate, regular rhythm and No murmurs present (Cardio) RATE: regular rate RHYTHM: regular rhythm GI: COMMON NORMALS: Soft to palpation and No hepatosplenomegaly present AUSCULTATION: Yes normoactive bowel sounds PALPATION: Yes Soft to palpation, No Tenderness to palpation present (GI), No Guarding due to palpation present (GI) and Yes No hepatosplenomegaly present Extremity: COMMON NORMALS: normal to inspection, capillary refill normal, no clubbing, cyanosis or edema, no calf tenderness and no pedal edema Neuro: SENSORIUM/ORIENTATION: Yes oriented to person, Yes oriented to place and Yes oriented to time Skin: COMMON NORMALS: no rashes or lesions noted GENERAL SKIN EXAM: no rashes or lesions noted Course Vital Signs: Vital signs: Vital Signs Temperature 98.0 F 06/27/25 14:17 Pulse Rate 74 06/27/25 17:31 Respiratory Rate 18 06/27/25 14:17 Blood Pressure 158/71 06/27/25 17:31 Pulse Oximetry 98 06/27/25 17:31 Oxygen Delivery Me thod Room Air 06/27/25 16:52 MDM - General Adult Medical Decision Making Labs and imaging reviewed EKG as found reviewed as found in the chart no acute coronary syndrome. Labs unremarkable she does have some anemia she need to have this further evaluated through her primary care doctor. Will discharge patient home. Follow-up with your primary care doctor think some of this is side effect from medications. Advised her not to take Seroquel until she follows up with her PCP. Medical Records I reviewed the patient's medical records. Lab Data I reviewed the patient's lab results. 06/27/25 14:39 06/27/25 14:39 Radiology Impressions Chest X-Ray 06/27/25 15:29 IMPRESSION: No acute findings. Laboratory Results WBC 6.67 10^3/uL (3.29-11.43) 06/27/25 14:39 RBC 3.29 10^6/uL (3.85-5.65) L 06/27/25 14:39 Hgb 9.00 g/dL (11.27-16.99) L 06/27/25 14:39 Hct 29.4 % (36-47) L 06/27/25 14:39 MCV 89.4 fl (85-98) 06/27/25 14:39 MCH 27.4 pg (27-33) 06/27/25 14:39 MCHC 30.6 g/dL (30-55) 06/27/25 14:39 RDW 14.8 % (12.1-15.1) 06/27/25 14:39 Plt Count 240 10^3/cmm (157-399) 06/27/25 14:39 MPV 9.8 fL (7.4-10.4) 06/27/25 14:39 Neut % (Auto) 73.2 % 06/27/25 14:39 Lymph % (Auto) 17.4 % 06/27/25 14:39 Cache % (Auto) 7.9 % 06/27/25 14:39 Eos % (Auto) 0.9 % 06/27/25 14:39 Baso % (Auto) 0.3 % 06/27/25 14:39 Neut # (Auto) 4.88 10^3/uL (1.8-7.7) 06/27/25 14:39 Lymph # (Auto) 1.2 10^3/uL (0.8-4.8) 06/27/25 14:39 Cache # (Auto) 0.5 10^3/uL (0.2-0.9) 06/27/25 14:39 Eos # (Auto) 0.1 10^3/uL (0.0-0.8) 06/27/25 14:39 Baso # (Auto) 0.0 10^3/uL (0.0-0.1) 06/27/25 14:39 Nucleated RBC % (auto) 0 % 06/27/25 14:39 Nucleated RBCs # 0.0 /100WBC 06/27/25 14:39 Sodium 140 mmol/L (136-145) 06/27/25 14:39 Potassium 4.8 mmol/L (3.5-5.1) 06/27/25 14:39 Chloride 106 mmol/L (98-107) 06/27/25 14:39 Carbon Dioxide 24 mmol/L (22-29) 06/27/25 14:39 Anion Gap 14.8 (5-19) 06/27/25 14:39 BUN 22 mg/dL (8-23) 06/27/25 14:39 Creatinine 1.4 mg/dL (0.5-0.9) H 06/27/25 14:39 GFR Calculation Not Reportable 06/27/25 14:39 Glucose 139 mg/dL (65-115) H 06/27/25 14:39 Calculated Osmolality 296 mOsm/kg (285-295) H 06/27/25 14:39 Calcium 8.7 mg/dL (8.5-10.5) 06/27/25 14:39 Total Bilirubin 0.6 mg/dL (0.15-1.2) 06/27/25 14:39 AST 21 U/L (0-32) 06/27/25 14:39 ALT 10 U/L (0-33) 06/27/25 14:39 Alkaline Phosphatase 74 U/L (35-105) 06/27/25 14:39 Troponin T Baseline 21 ng/L (0-10) H 06/27/25 14:39 Troponin T 120 Minute 22.85 ng/L (0-10) H 06/27/25 16:04 Delta Troponin T 1.85 ABS# (0-10) 06/27/25 16:04 Total Protein 7.3 g/dL (6.6-8.7) 06/27/25 14:39 Albumin 3.6 g/dL (3.5-5.2) 06/27/25 14:39 Globulin 3.7 g/dL (1.3-4.6) 06/27/25 14:39 TSH 0.04 uIU/mL (0.27-4.20) L 06/27/25 14:39 All radiology interpretation(s) finalized by discharge Discharge Plan Discharge Patient Disposition: Home Clinical Impression: Heart palpitations, H/O hyperthyroidism, Medication side effects Condition: Stable Prescriptions: No Action cholecalciferol (vitamin D3) 125 mcg (5,000 unit) capsule 125 mcg PO DAILY milk thistle 175 mg tablet 175 mg PO BID Rx Instructions: give with meal/snack valsartan 80 mg tablet 80 mg PO DAILY Qty: 30 3RF nitroglycerin 0.4 mg tablet, sublingual 0.4 mg SUBLINGUAL Q5M PRN (Reason: chest pain) Qty: 25 3RF Rx Instructions: use every 5 minutes for 3 doses epinephrine [EpiPen] 0.3 mg/0.3 mL auto-injector 0.3 mg IM Q10M PRN (Reason: anaphylaxis) Qty: 2 2RF Rx Instructions: for 2 doses levothyroxine 75 mcg tablet 75 mcg PO DAILY Qty: 30 2RF Rx Instructions: dose decrease amlodipine 2.5 mg tablet 2.5 mg PO DAILY Qty: 30 2RF cetirizine [Zyrtec] 10 mg tablet 10 mg PO DAILY Qty: 30 2RF famotidine [Pepcid] 40 mg tablet 40 mg PO DAILY Qty: 30 2RF ferrous gluconate 324 mg (38 mg iron) tablet 324 mg PO BID Qty: 30 2RF ibandronate 150 mg tablet 150 mg PO .month Qty: 1 2RF liothyronine [Cytomel] 5 mcg tablet 5 mcg PO DAILY Qty: 30 2RF rosuvastatin 20 mg tablet 20 mg PO DAILY Qty: 30 2RF metoprolol succinate 50 mg tablet extended release 24 hr 50 mg PO DAILY Qty: 90 3RF Bariatric Multivitamins 45 mg iron- 800 mcg-120 mcg Capsule 1 cap PO DAILY Aspir-81 81 mg Tablet,Delayed Release (Dr/Ec) 81 mg PO DAILY Discharge Orders: Discharge ED (Routine); Ordered 06/27/25 Ordered By: Serge Langley Referrals: Martha German, BEATER TENDER-C [Primary Care Provider, Family Practice] Discharge Diet: Usual diet Discharge Activity: Resume usual activity Patient Instructions: Opioid Safety, Pain Management, Patient Portal & [place] Instructions Activity Restrictions/Additional Instructions: [facility] for your healthcare needs today. It is very important that you follow up as instructed or that you return to the Emergency Department should you have concerns or if your condition changes or worsens in any way. You were seen in the emergency room with complaints of palpitations. This may have been associated with the medication you took last night would hold the medication and follow-up with your doctor. Reviewing your chart continue on the same dose of Synthroid you were recently changed to. No other change in your medications. Will we we will set you up for an outpatient 72-hour Holter monitor. Print Language: Pashto Coding Level of Care Code ED Auto Crane Driver for Yadira Payton
[2025-06-27 14:46] LABS: Hematocrit 29.4 % (36-47); Hemoglobin 9.00 g/dL (11.27-16.99); Mean Corpuscular HGB Conc 30.6 g/dL (30-55); Mean Corpuscular Hemoglobin 27.4 pg (27-33); Mean Corpuscular Volume 89.4 fl (85-98); Nucleated Red Blood Cells % 0 %; Platelet Count 240 10^3/cmm (157-399); Red Blood Count 3.29 10^6/uL (3.85-5.65); White Blood Count 6.67 10^3/uL (3.29-11.43)
[2025-06-27 15:16] LABS: Troponin(5th) Baseline 21 ng/L (0-10)
[2025-06-27 15:24] LABS: Alanine Aminotransferase 10 U/L (0-33); Albumin Level 3.6 g/dL (3.5-5.2); Alkaline Phosphatase 74 U/L (35-105); Anion Gap 14.8 (5-19); Aspartate Amino Transferase 21 U/L (0-32); Blood Urea Nitrogen 22 mg/dL (8-23); Calcium 8.7 mg/dL (8.5-10.5); Carbon Dioxide 24 mmol/L (22-29); Chloride 106 mmol/L (98-107); Creatinine Clr Calc Pharmacy 28.8035; Globulin 3.7 g/dL (1.3-4.6); Glucose 139 mg/dL (65-115); Osmolality Calculated 296 mOsm/kg (285-295); Potassium 4.8 mmol/L (3.5-5.1); Sodium 140 mmol/L (136-145); Thyroid Stimulating Hormone 0.04 uIU/mL (0.27-4.20); Total Protein 7.3 g/dL (6.6-8.7)
--- NOTE | 2025-06-27 15:29 | XRR_ITS ---
PROCEDURE INFORMATION: Exam: XR Chest Exam date and time: 06/27/2025 3:31 PM Age: 85 years old Clinical indication: Pain; Chest pressure; Additional info: Chest pain TECHNIQUE: Imaging protocol: Radiologic exam of the chest. Views: 1 view. COMPARISON: CR XR chest 1V portable [id number] 07/26/2024 2:23 PM FINDINGS: Lungs: Unremarkable. No consolidation. Pleural spaces: Unremarkable. No pleural effusion. No pneumothorax. Heart/Mediastinum: Unremarkable. No cardiomegaly. Bones/joints: Unremarkable. XR/XR chest 1V portable [id number] IMPRESSION: No acute findings.
--- NOTE | 2025-06-27 16:12 | ECG_ITS ---
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 Measurements Intervals [place] Rate: 76 P: 0 [place]: 0 QRS: -15 QRSD: 94 T: 65 QT: 380 QTc: 429 Interpretive Statements SUPRAVENTRICULAR RHYTHM ABNORMAL RHYTHM ECG Compared to ECG 06/27/2025 14:31:59 Supraventricular rhythm now present Atrial fibrillation no longer present Electronically Signed On 06-28-2025 13:50:11 CDT by Ralph Wilhelm M.D. [id number] [id number]
[2025-06-27 16:35] LABS: Troponin 5 2HR 22.85 ng/L (0-10); Troponin 5 2HR Delta 1.85 ABS# (0-10)
[2025-06-27 16:52] VITALS: BP 167/134; PULSE 69; O2SAT 96
--- NOTE | 2025-06-27 17:03 | ECG_ITS ---
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 Measurements Intervals [place] Rate: 74 P: 250 [place]: 330 QRS: -1 QRSD: 90 T: 64 QT: 388 QTc: 431 Interpretive Statements SINUS RHYTHM WITH FIRST DEGREE AV BLOCK Compared to ECG 06/27/2025 16:12:53 First degree AV block now present Supraventricular rhythm no longer present Electronically Signed On 06-28-2025 14:02:21 CDT by Ralph Wilhelm M.D. [id number] [id number]
[2025-06-27 17:31] VITALS: BP 158/71; PULSE 74; O2SAT 98
--- NOTE | 2025-06-28 07:39 | DCPLANNER ---
messaged heart care for holter
== END 2025-06-27 17:38 | disposition home or self-care (01) ==
PROVIDERS: Emergency Provider Family Medicine; PCP Nurse Practitioner
DX: R00.2 Palpitations (principal); T50.995A Adverse effect of other drugs, medicaments and biological substances, initial encounter; X58.XXXA Exposure to other specified factors, initial encounter; Z86.79 Personal history of other diseases of the circulatory system; D64.9 Anemia, unspecified; Z87.891 Personal history of nicotine dependence; I10 Essential (primary) hypertension
CPT/HCPCS: 36415; 71045; 80053; 84443; 84484; 85025; 93005; 99285

== ENCOUNTER → 2025-07-01 16:04 | Outpatient (BNVA) | payer MEDICARE, OTHER, SELFPAY | PROVIDERS: PCP Nurse Practitioner; Visit Provider Nurse Practitioner | DX: E03.9 Hypothyroidism, unspecified (principal) | CPT/HCPCS: 84439; 84443; 84481 ==

== ENCOUNTER → 2025-07-09 08:10 | Outpatient (BNVA) | payer MEDICARE, OTHER, SELFPAY | PROVIDERS: PCP Nurse Practitioner; Visit Provider Nurse Practitioner | DX: E03.9 Hypothyroidism, unspecified (principal) | CPT/HCPCS: 84439; 84443; 84481 ==

== ENCOUNTER 2025-08-21 10:16 | Outpatient (CLI) | payer MEDICARE, OTHER, SELFPAY ==
--- NOTE | 2025-08-21 10:25 | XR_ITS ---
WS: [id number] XR hip RT 2-3V wo/w pel* [id number] REASON FOR EXAM: M79.18 - Myalgia, other site FINDINGS: No fracture or focal bone lesion. Moderate to significant narrowing of the joint space with moderate subchondral sclerosis and mild osteophytosis of the acetabulum. Mild osteophytosis of the femoral head. 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
== END 2025-08-21 10:17 | disposition home or self-care (01) ==
LOC: RAD 10:21
PROVIDERS: PCP Nurse Practitioner; Visit Provider Nurse Practitioner
DX: M79.18 Myalgia, other site (principal); M16.11 Unilateral primary osteoarthritis, right hip
CPT/HCPCS: 73502

== ENCOUNTER → 2025-09-12 10:01 | Outpatient (BNVA) | payer MEDICARE, OTHER, SELFPAY | PROVIDERS: PCP Nurse Practitioner; Visit Provider Nurse Practitioner | DX: I10 Essential (primary) hypertension (principal); E03.9 Hypothyroidism, unspecified | CPT/HCPCS: 80053; 84439; 84443; 84481; 85025 ==